=== PATIENT | male | born 1945 | race Caucasian/White ===

== ENCOUNTER → 2020-05-17 10:04 | Outpatient (BNVA) | payer SELFPAY | PROVIDERS: PCP Hospitalist; Visit Provider Urology | DX: R97.20 Elevated prostate specific antigen [PSA] (principal) | CPT/HCPCS: 99202; 99203 ==

== ENCOUNTER → 2020-08-03 14:00 | Outpatient (BNVA) | payer MEDICAID, SELFPAY | PROVIDERS: PCP Hospitalist; Visit Provider Urology | DX: Z76.89 Persons encountering health services in other specified circumstances (principal) ==

== ENCOUNTER → 2020-08-16 10:27 | Outpatient (BNVA) | payer MEDICAID, SELFPAY | PROVIDERS: PCP Hospitalist; Visit Provider Urology | DX: R97.20 Elevated prostate specific antigen [PSA] (principal) | CPT/HCPCS: 99202 ==

== ENCOUNTER 2020-09-12 08:46 | Inpatient (IN) | payer MEDICAID, SELFPAY ==
[2020-09-12] VITALS (13 sets, daily range): BP systolic 93–130; BP diastolic 52–94; PULSE 97–128; RESP 16–39; TEMP 36.5–37.1; O2SAT 90–98; BMI 23.6
--- NOTE | 2020-09-12 | CT_ITS ---
EXAMINATION: CT CHEST WITHOUT CONTRAST CLINICAL INFORMATION: Shortness of breath. Evaluate for pneumonia. COMPARISON: Chest x-ray dated 09/12/2020. TECHNIQUE: Multidetector volumetric CT imaging of the chest was obtained noncontrast. Sagittal and coronal reformations were obtained. This CT examination was performed using dose optimization techniques as appropriate, variously including the following: *Automated exposure control *Adjustment of mA and/or kV according to patient size (this includes techniques or standardized protocols for targeted exams where dose is matched to indication/reason for exam; i.e. extremities or head) *Use of iterative reconstruction technique DLP: 529.31 mGy-cm. FINDINGS: LUNGS: There is prominent volume loss throughout the right hemithorax with shift of the mediastinum towards the right side due to complete collapse of the right middle lobe and near complete collapse of the right lower lobe with only a small amount of aeration remaining in the superior segment of the right lower lobe. Several punctate densities are seen within the consolidated right lower lobe, perhaps related to aspirated material or multiple granulomas or broncholiths. There is also ill-defined and patchy parenchymal opacity in the right upper lobe. The left lung is mildly hyperinflated. In the lateral periphery of the left upper lobe, a large pleural-based 5.2 x 3.4 cm mass is seen with irregular and spiculated margins and associated pleural reaction and trace pleural fluid. There is also patchy parenchymal opacity seen posteriorly in the left upper lobe adjacent to the fissure. Mild dependent atelectasis is seen in the left lower lobe. There is underlying moderate paraseptal emphysema in the upper lobes bilaterally and mild to moderate centrilobular emphysema. The tracheobronchial tree is ectatic. There is at least partial occlusion of the right lower lobe bronchus and complete occlusion of several of the segmental branches of the right lower lobe and the medial segment of the right middle lobe. Small right-sided pleural effusion is also noted.. LYMPHOVASCULAR STRUCTURES: Aortict size normal. Heart size enlarged. Four-chamber enlargement noted. Aortic valvular and aortic annular calcifications and mild to moderate coronary artery calcifications are seen. Trace amount of pericardial fluid is seen in the superior pericardial recesses. No significant pericardial effusion. No pericardial effusion. No bilateral hilar or axillary adenopathy. There is mild mediastinal adenopathy with numerous borderline sized lymph nodes seen, largest of which are too 1.2 cm lymph nodes in the right lower paratracheal space and in the aortopulmonary window. THYROID GLAND: Atrophic and poorly assessed. UPPER ABDOMEN: Included portions of the solid organs in the upper abdomen within normal limits. There is a small calcified gallstone in the gallbladder. Small accessory splenule is seen in the splenic hilar region. BONES: Old healed fracture deformities of several of the bilateral ribs is seen. No suspicious focal findings. CT/CT chest wo con IMPRESSION: 1. Large mass is seen in the periphery of the left upper lobe, highly suspicious for a lung cancer. There is also patchy parenchymal opacity in the posterior left upper lobe, suspicious for pneumonia. 2. There is dense consolidation and volume loss throughout the right lung as discussed above, suspicious for pneumonia. No definite central obstructing mass is seen, though a malignant etiology cannot be entirely excluded. 3. Small bilateral pleural effusions, larger on the right side than the left. 4. Mild mediastinal adenopathy. 5. Cholelithiasis.
--- NOTE | ~2020-09-12 | XR_ITS ---
EXAMINATION: XR CHEST CLINICAL INFORMATION: SOB and hypoxia. COMPARISON: Chest 09/16/2020. TECHNIQUE: Frontal view of the chest was obtained. FINDINGS: The lungs are expanded with patchy opacities seen in the left upper lobe similar previous study. Mild prominent interstitial markings are seen right lower lobe and left lower lobe. Heart size and pulmonary vascularity is normal. There are multiple healed left rib fractures. XR/XR chest 1V IMPRESSION: Persistent left upper lobe and bibasilar opacification is stable. Old healed left ribs as described above are unchanged.
--- NOTE | ~2020-09-12 | XR_ITS ---
EXAMINATION: CHEST 1 VIEW CLINICAL INFORMATION: Hypoxia. COMPARISON: Multiple prior exams are reviewed. The most recent is from 09/14/2019. TECHNIQUE: An AP view of the chest is provided. FINDINGS: The cardiac silhouette is not enlarged. The mediastinal and hilar contours are unremarkable. There are neither pleural effusions nor pneumothoraces. There is persistent patchy opacification at the left apex. There is less prominent airspace opacification at the right lung base. The osseous structures are stable with several healed left rib fractures again identified. XR/XR chest 1V IMPRESSION: Persistent left upper lobe opacification corresponding to a known mass. Mild airspace disease at the right lung base.
--- NOTE | 2020-09-12 08:59 | XR_ITS ---
EXAMINATION: XR CHEST CLINICAL INFORMATION: Shortness of breath COMPARISON: None TECHNIQUE: Frontal view of the chest was obtained. FINDINGS: Patchy bilateral airspace opacities are present in both lungs, most notably in the left apex, right mid lung, and right lung base, concerning for multifocal pneumonia. No appreciable effusion on these images, the examination is limited by respiratory motion. No pneumothorax. Cardiac silhouette is normal in size. Mediastinal contour is normal. Pulmonary vasculature is unremarkable. Chronic healed left-sided rib fractures. No acute osseous findings. XR/XR chest 1V IMPRESSION: Patchy bilateral airspace disease concerning for multifocal pneumonia.
--- NOTE | 2020-09-12 08:59 | ECG_ITS ---
Test Reason : SOB Blood Pressure : / mmHG Vent. Rate : 109 BPM Atrial Rate : 159 BPM P-R Int : 000 ms QRS Dur : 104 ms QT Int : 332 ms P-R-T Axes : 000 -36 041 degrees QTc Int : 447 ms Atrial fibrillation with rapid ventricular response Left axis deviation Abnormal ECG No previous ECGs available Referred By: Samuel Bledsoe Electronically Signed By:BOBY WINCHESTER MD
--- NOTE | 2020-09-12 09:03 | ED.GENADULT ---
HPI - General Adult General Chief complaint: Dyspnea Stated complaint: LOW 02SAT ON 3L,-RAPID COVID PRIOR TX PER SNF Time Seen by Provider: 09/12/20 08:59 Source: patient and EMS Mode of arrival: EMS Limitations: physical limitation History of Present Illness HPI narrative: 74-year-old male from [facility] custodial who presented with shortness of breath and hypoxic at the custodial this morning as per staff at the custodial and no mass, history of COPD on supplemental oxygen 3 L via nasal cannula, patient was satting 80% at the custodial with his regular 3 L of oxygen, on EMS arrival patient was hypoxic was placed on non-rebreather 100% till L that improved his oxygenation 100% patient was weaned off the non-rebreather on arrival patient reported improvement of his breathing and patient now on nasal cannula 3 L satting 92% which is baseline. Patient was tested negative for COVID before arrival. Patient had a recent pneumonia 5 weeks ago. Related Data Home Medications Medication Instructions Recorded Confirmed acetaminophen 325 mg capsule 650 mg PO BID PRN 08/16/20 09/12/20 albuterol sulfate 90 mcg/actuation 2 puff INHALATION Q6H PRN 08/16/20 09/12/20 aerosol inhaler bisacodyl 10 mg rectal suppository 10 mg AR DAILY PRN 08/16/20 09/12/20 budesonide-formoterol HFA 160 2 puff INHALATION BID 08/16/20 09/12/20 mcg-4.5 mcg/actuation aerosol inhaler duloxetine 30 mg capsule,delayed 30 mg PO DAILY 08/16/20 09/12/20 release ferrous sulfate 325 mg (65 mg 325 mg PO DAILY 08/16/20 09/12/20 iron) tablet prednisone 10 mg tablet 10 mg PO DAILY 08/16/20 09/12/20 quetiapine 25 mg tablet 25 mg PO BEDTIME 08/16/20 09/12/20 risperidone 1 mg tablet 1 mg PO BEDTIME 08/16/20 09/12/20 rivaroxaban 20 mg tablet 20 mg PO DAILY 08/16/20 09/12/20 sennosides 8.6 mg capsule 8.6 mg PO DAILY 08/16/20 09/12/20 tiotropium bromide 18 mcg capsule 1 cap INHALATION DAILY 08/16/20 09/12/20 with inhalation device torsemide 20 mg tablet 20 mg PO DAILY 08/16/20 09/12/20 Allergies Allergy/AdvReac Type Severity Reaction Status Date / Time ciprofloxacin Allergy Intermediate Unknown Verified 09/12/20 10:45 vancomycin Allergy Mild Unknown Verified 09/12/20 10:45 metronidazole Allergy Unknown Verified 09/12/20 10:45 mushroom Allergy Unknown Verified 09/12/20 10:45 Review of Systems Review of Systems: All other systems are reviewed and are negative Constitutional: Reports as per HPI and Reports no additional constitutional complaints Eyes: Reports as per HPI and Reports no additional eye complaints Reports system reviewed and no additional complaints, except as documented Cardiovascular: Reports as per HPI and Reports no additional cardiovascular complaints Respiratory: Reports as per HPI and Reports no additional respiratory complaints Gastrointestinal: Reports as per HPI and Reports no additional gastrointestinal complaints Genitourinary: Reports no additional female genitourinary complaints Musculoskeletal: Reports no additional musculoskeletal complaints Skin/Breast: Reports system reviewed and no additional complaints, except as docu Psychiatric: Reports no additional psychiatric complaints Endocrine: Reports no additional endocrine complaints Hematologic/Lymphatic: Reports no additional hematologic/lymphatic complaints Allergic/Immunologic: Reports no additional allergic/immunologic complaints Reports system reviewed and no additional complaints, except as documented and Reports Abnormal speech present [facility] Past Medical History Medical History COPD (chronic obstructive pulmonary disease) Low back pain Other iron deficiency anemias Schizoaffective disorder Typical atrial flutter Social History Social History Alcohol intake: never Smoking Status: Never smoker Use of substances other than those prescribed or required for medical reasons: No Advance Directives: No Advance Directives Information Provided: No Physical Exam Vital Signs: Vital Signs: Last Vital Signs Temp 98.8 F 09/12/20 13:52 Pulse 97 09/12/20 15:14 Resp 24 H 09/12/20 15:14 BP 112/61 09/12/20 15:14 Pulse Ox 95 09/12/20 15:14 Body Mass Index 23.6 Vital signs have been reviewed as normal and appeared to be correct. Blood pressure normal. Heart rate normal. Respiration rate normal. Temperature normal. Oxygen saturation normal. Appearance: Alert.. No acute distress. Head: Normal external exam. Normocephalic. Atraumatic. No Nuno signs noted. No raccoon eyes noted Eyes: PERRLA. EOMI. Conjunctiva and sclera normal. Eyelids normal. ENT: TM's Normal. Pharynx normal. Uvula midline. Moist mucous membranes. No trismus noted. No drooling noted. No muffled voice noted. Neck: Normal inspection. Neck supple. No JVD CVS: Irregular heartbeat at 110 beats per minute. Heart sound normal. No murmurs noted. Pulses normal throughout. Respiratory: Mild respiratory distress. Painless inspiration. Breath sounds normal. Diffuse mild expiratory wheezes bilaterally with diffuse rhonchi, bilateral basilar rales No accessory muscle usage noted or decreased air movement noted. Abdomen: Soft and nontender. Bowel sounds normal in all 4 quadrants. No distention noted. No organomegaly noted. No visible injury noted. Back: No CVA tenderness. Full range of motion noted. Skin: Skin warm and dry. Normal skin color. Normal skin turgor. No rashes/lesions/lacerations noted. Extremities: +1 lower extremity edema (ankle/lower leg). Neuro: No motor deficit. No sensory deficit. Course Course Course Narrative: Assessment and plan. 74-year-old male history of COPD, use 3 L of supplemental oxygen 05/03 came in from custodial with difficulty breathing and hypoxia, patient emergency department been having periods of hypoxia which usually clears if he cough of sputum. 1. Patient meet criteria for SIRS (hypoxia/tachycardia) otherwise normal WBCs, normal lactic acid will cover patient for healthcare acquired pneumonia with Zosyn/Zithromax. 2. ABG showing normal pH with high PCO 2, the case was discussed with Dr. allen, will try BiPAP for 15- 20 minutes which may improve his mentation. Otherwise will admit to the floor, patient has been in the ER for over 8 hours mental status is unchanged, and patient appears stable. Medical Decision Making Lab Data Lab results reviewed: Yes I reviewed the patient's lab results. Result diagrams: 09/12/20 09:58 09/12/20 09:58 Labs: Lab Results 09/12/20 09/12/20 09/12/20 Range/Units 09:58 09:58 09:59 WBC 10.7 (4.8-10.8) X10*3/uL RBC 3.60 L (4.60-5.80) X10*6/uL Hgb 8.4 L (14.0-18.0) g/dl Hct 28.4 L (42-52) % MCV 78.9 L (80-98) fL MCH 23.3 L (27.0-33.0) pg MCHC 29.6 L (31.0-36.0) g/dl RDW 15.5 (11.0-16.0) % Plt Count 305 (160-400) X10*3/uL MPV 10.1 (9.4-12.4) fL Immature Gran % (Auto) 0.4 (0.0-0.4) % Neut % (Auto) 78.9 H (45-73) % Lymph % (Auto) 10.2 L (20-40) % Wallace % (Auto) 10.0 (2-11) % Eos % (Auto) 0.1 (0-4) % Baso % (Auto) 0.4 (0-2) % Lymph # (Auto) 1.1 L (1.2-4.9) X10*3/uL Wallace # (Auto) 1.1 (0.1-1.2) X10*3/uL Eos # (Auto) 0.0 (0.0-0.4) X10*3/uL Baso # (Auto) 0.0 (0.0-0.2) X10*3/uL Abs Immat Gran (auto) 0.04 H (0.00-0.03) X10*3/uL Absolute Neuts (auto) 8.6 H (2.0-8.3) X10*3/uL Absolute Nucleated RBC 0.000 (0.0-0.012) X10*3/uL Nucleated RBC % (auto) 0.0 (0.0-0.2) /100WBC Smear Tech's Comments VERIFIED ABG pH (7.35-7.45) ABG pCO2 (32-45) mmHg ABG pO2 (83-108) mmHg ABG HCO3 (22-26) mmol/L ABG O2 Saturation % ABG Base Excess VBG pH (7.32-7.43) VBG pCO2 mmHg VBG pO2 mmHg VBG HCO3 mmol/L VBG O2 Saturation % VBG Base Excess mmol/L Oxygen Given Sodium 138 (135-145) mmol/L Potassium 4.3 (3.3-5.1) mmol/L Chloride 94 L (96-108) mmol/L Carbon Dioxide 34 H (22-29) mmol/L Anion Gap 14 (12-20) BUN 17 H (9-16) mg/dL Creatinine 0.73 (0.5-1.4) mg/dL Estim Creat Clear Calc 88.8 Estimated GFR > 60 Random Glucose 115 (60-115) mg/dL Lactic Acid (0.5-2.0) mmol/L Calcium 8.4 (8.4-10.2) mg/dL Total Bilirubin 0.3 (0.0-1.0) mg/dL Direct Bilirubin 0.2 (0.0-0.5) mg/dL AST 17 (5-37) U/L ALT < 6 (0-40) U/L Alkaline Phosphatase 99 (39-117) U/L Troponin I High Sens (<3.5-35.0) ng/L B-Natriuretic Peptide (<100) pg/mL Total Protein 6.0 L (6.5-8.0) g/dL Albumin 3.4 L (3.5-5.0) g/dL Lipase 19 (8-78) U/L COVID-19 (REYES) Negative (Negative) COVID-19 Clin Com See Note 09/12/20 09/12/20 09/12/20 Range/Units 10:19 11:38 11:39 WBC (4.8-10.8) X10*3/uL RBC (4.60-5.80) X10*6/uL Hgb (14.0-18.0) g/dl Hct (42-52) % MCV (80-98) fL MCH (27.0-33.0) pg MCHC (31.0-36.0) g/dl RDW (11.0-16.0) % Plt Count (160-400) X10*3/uL MPV (9.4-12.4) fL Immature Gran % (Auto) (0.0-0.4) % Neut % (Auto) (45-73) % Lymph % (Auto) (20-40) % Wallace % (Auto) (2-11) % Eos % (Auto) (0-4) % Baso % (Auto) (0-2) % Lymph # (Auto) (1.2-4.9) X10*3/uL Wallace # (Auto) (0.1-1.2) X10*3/uL Eos # (Auto) (0.0-0.4) X10*3/uL Baso # (Auto) (0.0-0.2) X10*3/uL Abs Immat Gran (auto) (0.00-0.03) X10*3/uL Absolute Neuts (auto) (2.0-8.3) X10*3/uL Absolute Nucleated RBC (0.0-0.012) X10*3/uL Nucleated RBC % (auto) (0.0-0.2) /100WBC Smear Tech's Comments ABG pH (7.35-7.45) ABG pCO2 (32-45) mmHg ABG pO2 (83-108) mmHg ABG HCO3 (22-26) mmol/L ABG O2 Saturation % ABG Base Excess VBG pH 7.39 (7.32-7.43) VBG pCO2 81 mmHg VBG pO2 76 mmHg VBG HCO3 50 mmol/L VBG O2 Saturation 93.0 % VBG Base Excess 22.2 mmol/L Oxygen Given Sodium (135-145) mmol/L Potassium (3.3-5.1) mmol/L Chloride (96-108) mmol/L Carbon Dioxide (22-29) mmol/L Anion Gap (12-20) BUN (9-16) mg/dL Creatinine (0.5-1.4) mg/dL Estim Creat Clear Calc Estimated GFR Random Glucose (60-115) mg/dL Lactic Acid 0.7 (0.5-2.0) mmol/L Calcium (8.4-10.2) mg/dL Total Bilirubin (0.0-1.0) mg/dL Direct Bilirubin (0.0-0.5) mg/dL AST (5-37) U/L ALT (0-40) U/L Alkaline Phosphatase (39-117) U/L Troponin I High Sens 62.2 H (<3.5-35.0) ng/L B-Natriuretic Peptide 94 (<100) pg/mL Total Protein (6.5-8.0) g/dL Albumin (3.5-5.0) g/dL Lipase (8-78) U/L COVID-19 (REYES) (Negative) COVID-19 Clin Com 09/12/20 Range/Units 14:34 WBC (4.8-10.8) X10*3/uL RBC (4.60-5.80) X10*6/uL Hgb (14.0-18.0) g/dl Hct (42-52) % MCV (80-98) fL MCH (27.0-33.0) pg MCHC (31.0-36.0) g/dl RDW (11.0-16.0) % Plt Count (160-400) X10*3/uL MPV (9.4-12.4) fL Immature Gran % (Auto) (0.0-0.4) % Neut % (Auto) (45-73) % Lymph % (Auto) (20-40) % Wallace % (Auto) (2-11) % Eos % (Auto) (0-4) % Baso % (Auto) (0-2) % Lymph # (Auto) (1.2-4.9) X10*3/uL Wallace # (Auto) (0.1-1.2) X10*3/uL Eos # (Auto) (0.0-0.4) X10*3/uL Baso # (Auto) (0.0-0.2) X10*3/uL Abs Immat Gran (auto) (0.00-0.03) X10*3/uL Absolute Neuts (auto) (2.0-8.3) X10*3/uL Absolute Nucleated RBC (0.0-0.012) X10*3/uL Nucleated RBC % (auto) (0.0-0.2) /100WBC Smear Tech's Comments ABG pH 7.38 (7.35-7.45) ABG pCO2 80 H* (32-45) mmHg ABG pO2 78 L (83-108) mmHg ABG HCO3 47 H (22-26) mmol/L ABG O2 Saturation 93.0 % ABG Base Excess 19.8 VBG pH (7.32-7.43) VBG pCO2 mmHg VBG pO2 mmHg VBG HCO3 mmol/L VBG O2 Saturation % VBG Base Excess mmol/L Oxygen Given 4 L Sodium (135-145) mmol/L Potassium (3.3-5.1) mmol/L Chloride (96-108) mmol/L Carbon Dioxide (22-29) mmol/L Anion Gap (12-20) BUN (9-16) mg/dL Creatinine (0.5-1.4) mg/dL Estim Creat Clear Calc Estimated GFR Random Glucose (60-115) mg/dL Lactic Acid (0.5-2.0) mmol/L Calcium (8.4-10.2) mg/dL Total Bilirubin (0.0-1.0) mg/dL Direct Bilirubin (0.0-0.5) mg/dL AST (5-37) U/L ALT (0-40) U/L Alkaline Phosphatase (39-117) U/L Troponin I High Sens (<3.5-35.0) ng/L B-Natriuretic Peptide (<100) pg/mL Total Protein (6.5-8.0) g/dL Albumin (3.5-5.0) g/dL Lipase (8-78) U/L COVID-19 (REYES) (Negative) COVID-19 Clin Com Imaging Data Chest x-ray: Radiologist's impression: Patchy bilateral airspace disease concerning for multifocal pneumonia. ECG Data Interpretation: Atrial fibrillation at 01:19 beats per minutes, left axis deviation, otherwise unremarkable intervals. Discharge Plan Discharge Clinical Impression: Hypoxia, Acute exacerbation of chronic obstructive pulmonary disease (COPD), Hospital-acquired pneumonia Patient Disposition: Admitted As Inpatient
[2020-09-12] MEDS: Albuterol/Iprat 2.5/0.5MG 3 ML AMPUL.NEB INHALE (09:07)
[2020-09-12] MEDS: methylPREDNISolone Sod Succ/PF 125 MG/2 ML VIAL IVPUSH (09:10)
[2020-09-12] MEDS: Furosemide 20 MG/2 ML VIAL IVPUSH (09:11)
[2020-09-12] MEDS: Magnesium Sulfate/H2O 2 GM/50 ML PIGGYBACK IV (09:22)
[2020-09-12] MEDS: 0.9 % Sodium Chloride 1,000 ML 999 ML IVCONT (10:00)
[2020-09-12 10:19] LABS: COVID-19 Test Negative (Negative); IDNOW Serial# 9DD0AD1C
[2020-09-12 10:26] LABS: Basophils Percent Auto 0.4 % (0-2); Eosinophils Percent Auto 0.1 % (0-4); Hematocrit 28.4 % (42-52); Hemoglobin 8.4 g/dl (14.0-18.0); Imm Gran Abs Auto 0.04 X10*3/uL (0.00-0.03); Imm Gran Pct Auto 0.4 % (0.0-0.4); Lymphocytes Absolute Auto 1.1 X10*3/uL (1.2-4.9); Lymphocytes Percent Auto 10.2 % (20-40); MANUAL DIFF FLAG SCAN; Mean Corpuscular HGB Conc 29.6 g/dl (31.0-36.0); Mean Corpuscular Hemoglobin 23.3 pg (27.0-33.0); Mean Corpuscular Volume 78.9 fL (80-98); Mean Platelet Volume 10.1 fL (9.4-12.4); Monocytes Absolute Auto 1.1 X10*3/uL (0.1-1.2); Neutrophils Absolute Auto 8.6 X10*3/uL (2.0-8.3); Neutrophils Percent Auto 78.9 % (45-73); PLT CLUMP 1; Red Cell Distribution Width 15.5 % (11.0-16.0); SCAN SMEAR FLAG 1
[2020-09-12 10:32] LABS: Alanine Aminotransferase < 6 U/L (0-40); Albumin Level 3.4 g/dL (3.5-5.0); Alkaline Phosphatase 99 U/L (39-117); Anion Gap 14 (12-20); Aspartate Amino Transferase 17 U/L (5-37); Bilirubin Direct 0.2 mg/dL (0.0-0.5); Bilirubin Total 0.3 mg/dL (0.0-1.0); Blood Urea Nitrogen 17 mg/dL (9-16); Calcium 8.4 mg/dL (8.4-10.2); Carbon Dioxide 34 mmol/L (22-29); Chloride 94 mmol/L (96-108); Creatinine Clr Calc Pharmacy 88.8; Estimated Glomerular Filt Rate > 60; Glucose Random 115 mg/dL (60-115); Lipase 19 U/L (8-78); Potassium 4.3 mmol/L (3.3-5.1); Sodium 138 mmol/L (135-145)
[2020-09-12] MEDS: Piperacillin Sodium/Tazobactam 4.5 GM in 0.9 % Sodium Chloride 100 ML IV (10:33)
[2020-09-12 10:36] LABS: White Blood Count 10.7 X10*3/uL (4.8-10.8)
[2020-09-12 10:37] LABS: Platelet Count 305 X10*3/uL (160-400)
[2020-09-12 11:27] LABS: B Type Natriuretic Peptide 94 pg/mL (<100)
[2020-09-12 11:30] LABS: SLIDE REVIEW VERIFIED
[2020-09-12 11:46] LABS: Troponin-I High Sensitivity 62.2 ng/L (<3.5-35.0)
[2020-09-12 11:47] LABS: HCO3 VBG 50 mmol/L; PCO2 VBG 81 mmHg; PO2 VBG 76 mmHg; pH VBG 7.39 (7.32-7.43)
[2020-09-12 11:48] LABS: Base Excess VBG 22.2 mmol/L
[2020-09-12] MEDS: Azithromycin 500 MG in 0.9 % Sodium Chloride 250 ML 125 MG IV (11:51)
[2020-09-12 12:08] LABS: Lactic Acid 0.7 mmol/L (0.5-2.0)
[2020-09-12] MEDS: Albuterol Sulfate (0.083%) 2.5 MG/3 ML VIAL.NEB INHALE (13:06)
--- NOTE | 2020-09-12 13:58 | PC.NURSE ---
Weaning and increaseing o2 as indicated. PT's sats drop only with sleep or laugh of cough effort. When pt is awake and coughing strong his sats improve ans we are able to wean to 3liters nc with sats remaining >90.
[2020-09-12 14:48] LABS: Pt Ventilation O2% 4 L
[2020-09-12 14:51] LABS: PO2 ABG 78 mmHg (83-108); pH ABG 7.38 (7.35-7.45)
[2020-09-12 14:52] LABS: Base Excess ABG 19.8; HCO3 ABG 47 mmol/L (22-26)
[2020-09-12 14:56] LABS: ABG PCO2 80 mmHg (32-45)
--- NOTE | 2020-09-12 15:17 | PC.NURSE ---
ABG elevated CO2 with normal pH. Bedside capnography applied reading 38-42
--- NOTE | 2020-09-12 16:23 | PC.NURSE ---
Pt placced on bipap for a trial in attempt to improve mentation. Per ABG CO2 elevated but pH was WNL. Pt has COPD history on 3liters at baseline.
--- NOTE | 2020-09-12 17:27 | PM.IMHP ---
History of Present Illness Date of Service: 09/12/20 Chief Complaint: Shortness of breath 74 year old man presenting from [facility] with hypoxia with oxygen saturation of 80%. Unfortunately patient was somnolent and not answer many questions. He does have a history schizophrenia. Chest CT obtained showed large mass in the periphery of the left upper lobe and patchy opacity. He also had some pleural effusions. Blood gas did show pCO2 80, pH 7.38, PO2 78. Seems compensated with bicarb of 47. He has a history of chronic respiratory failure and he is on 3 L of oxygen at the facility. His oxygen did improve after he was placed on Ventimask and non-rebreather. Review of Systems Review of Systems: Yes Unobtainable due to mental status [facility] Medical History COPD (chronic obstructive pulmonary disease) Low back pain Other iron deficiency anemias Schizoaffective disorder Typical atrial flutter Social History Alcohol intake: never Smoking Status: Never smoker Use of substances other than those prescribed or required for medical reasons: No Advance Directives: No Advance Directives Information Provided: No Meds Allergies Allergy/AdvReac Type Severity Reaction Status Date / Time ciprofloxacin Allergy Intermediate Unknown Verified 09/12/20 10:45 vancomycin Allergy Mild Unknown Verified 09/12/20 10:45 metronidazole Allergy Unknown Verified 09/12/20 10:45 mushroom Allergy Unknown Verified 09/12/20 10:45 Home Medications Medication Instructions Recorded Confirmed Type acetaminophen 325 mg capsule 650 mg PO BID PRN 08/16/20 09/12/20 History albuterol sulfate 90 mcg/actuation 2 puff INHALATION Q6H PRN 08/16/20 09/12/20 History aerosol inhaler bisacodyl 10 mg rectal suppository 10 mg SD DAILY PRN 08/16/20 09/12/20 History budesonide-formoterol HFA 160 2 puff INHALATION BID 08/16/20 09/12/20 History mcg-4.5 mcg/actuation aerosol inhaler duloxetine 30 mg capsule,delayed 30 mg PO DAILY 08/16/20 09/12/20 History release ferrous sulfate 325 mg (65 mg 325 mg PO DAILY 08/16/20 09/12/20 History iron) tablet prednisone 10 mg tablet 10 mg PO DAILY 08/16/20 09/12/20 History quetiapine 25 mg tablet 25 mg PO BEDTIME 08/16/20 09/12/20 History risperidone 1 mg tablet 1 mg PO BEDTIME 08/16/20 09/12/20 History rivaroxaban 20 mg tablet 20 mg PO DAILY 08/16/20 09/12/20 History sennosides 8.6 mg capsule 8.6 mg PO DAILY 08/16/20 09/12/20 History tiotropium bromide 18 mcg capsule 1 cap INHALATION DAILY 08/16/20 09/12/20 History with inhalation device torsemide 20 mg tablet 20 mg PO DAILY 08/16/20 09/12/20 History Physical Exam Vital Signs and Narrative: Vital Signs: Last Vital Signs Temp 98.8 F 09/12/20 13:52 Pulse 97 09/12/20 15:14 Resp 39 H 09/12/20 16:29 BP 112/61 09/12/20 15:14 Pulse Ox 95 09/12/20 15:14 Body Mass Index 23.6 Appearing in no acute distress head is normocephalic atraumatic eyes pupils are PERRLA sclera is anicteric mouth throat mucous membranes are intact and moist neck is supple no lymphadenopathy, no JVD noted lung sounds Coarse heart regular rate rhythm, clear S1, S2 positive bowel sounds, abdomen is soft, nontender neuro patient alert to stimuli Results Labs CBC and Chem 7: 09/12/20 09:58 09/12/20 09:58 Labs: Laboratory Results - last 24 hr 09/12/20 09/12/20 09/12/20 09:58 09:58 09:59 MCV 78.9 L MCH 23.3 L MCHC 29.6 L RDW 15.5 Plt Count 305 MPV 10.1 Immature Gran % (Auto) 0.4 Neut % (Auto) 78.9 H Lymph % (Auto) 10.2 L [place] % (Auto) 10.0 Eos % (Auto) 0.1 Baso % (Auto) 0.4 Lymph # (Auto) 1.1 L [place] # (Auto) 1.1 Eos # (Auto) 0.0 Baso # (Auto) 0.0 Abs Immat Gran (auto) 0.04 H Absolute Neuts (auto) 8.6 H Absolute Nucleated RBC 0.000 Nucleated RBC % (auto) 0.0 Smear Tech's Comments VERIFIED ABG pH ABG pCO2 ABG pO2 ABG HCO3 ABG O2 Saturation ABG Base Excess VBG pH VBG pCO2 VBG pO2 VBG HCO3 VBG O2 Saturation VBG Base Excess Oxygen Given Anion Gap 14 Estim Creat Clear Calc 88.8 Estimated GFR > 60 Random Glucose 115 Lactic Acid Calcium 8.4 Total Bilirubin 0.3 Direct Bilirubin 0.2 AST 17 ALT < 6 Alkaline Phosphatase 99 Troponin I High Sens B-Natriuretic Peptide Total Protein 6.0 L Albumin 3.4 L Lipase 19 COVID-19 (REYES) Negative COVID-19 Clin Com See Note 09/12/20 09/12/20 09/12/20 10:19 11:38 11:39 MCV MCH MCHC RDW Plt Count MPV Immature Gran % (Auto) Neut % (Auto) Lymph % (Auto) Sweet [place] % (Auto) Eos % (Auto) Baso % (Auto) Lymph # (Auto) Sweet [place] # (Auto) Eos # (Auto) Baso # (Auto) Abs Immat Gran (auto) Absolute Neuts (auto) Absolute Nucleated RBC Nucleated RBC % (auto) Smear Tech's Comments ABG pH ABG pCO2 ABG pO2 ABG HCO3 ABG O2 Saturation ABG Base Excess VBG pH 7.39 VBG pCO2 81 VBG pO2 76 VBG HCO3 50 VBG O2 Saturation 93.0 VBG Base Excess 22.2 Oxygen Given Anion Gap Estim Creat Clear Calc Estimated GFR Random Glucose Lactic Acid 0.7 Calcium Total Bilirubin Direct Bilirubin AST ALT Alkaline Phosphatase Troponin I High Sens 62.2 H B-Natriuretic Peptide 94 Total Protein Albumin Lipase COVID-19 (REYES) COVID-19 Clin Com 09/12/20 14:34 MCV MCH MCHC RDW Plt Count MPV Immature Gran % (Auto) Neut % (Auto) Lymph % (Auto) Sweet [place] % (Auto) Eos % (Auto) Baso % (Auto) Lymph # (Auto) [place] # (Auto) Eos # (Auto) Baso # (Auto) Abs Immat Gran (auto) Absolute Neuts (auto) Absolute Nucleated RBC Nucleated RBC % (auto) Smear Tech's Comments ABG pH 7.38 ABG pCO2 80 H* ABG pO2 78 L ABG HCO3 47 H ABG O2 Saturation 93.0 ABG Base Excess 19.8 VBG pH VBG pCO2 VBG pO2 VBG HCO3 VBG O2 Saturation VBG Base Excess Oxygen Given 4 L Anion Gap Estim Creat Clear Calc Estimated GFR Random Glucose Lactic Acid Calcium Total Bilirubin Direct Bilirubin AST ALT Alkaline Phosphatase Troponin I High Sens B-Natriuretic Peptide Total Protein Albumin Lipase COVID-19 (REYES) COVID-19 Clin Com Imaging Radiologist's Impressions: Impressions Chest CT 09/12/20 00:00 IMPRESSION: 1. Large mass is seen in the periphery of the left upper lobe, highly suspicious for a lung cancer. There is also patchy parenchymal opacity in the posterior left upper lobe, suspicious for pneumonia. 2. There is dense consolidation and volume loss throughout the right lung as discussed above, suspicious for pneumonia. No definite central obstructing mass is seen, though a malignant etiology cannot be entirely excluded. 3. Small bilateral pleural effusions, larger on the right side than the left. 4. Mild mediastinal adenopathy. 5. Cholelithiasis. Chest X-Ray 09/12/20 08:59 IMPRESSION: Patchy bilateral airspace disease concerning for multifocal pneumonia. Assessment and Plan (1) Hypoxia: Status: Acute (2) Acute exacerbation of chronic obstructive pulmonary disease (COPD): Status: Acute (3) Hospital-acquired pneumonia: Status: Acute 74-year-old man [facility] with pneumonia, acute on chronic respiratory failure secondary to pneumonia and COPD exacerbation. Healthcare associated pneumonia. Cefepime, doxycycline. Supplemental oxygen. Acute on chronic respiratory failure. Secondary to pneumonia and COPD exacerbation. Solu-Medrol, supplemental oxygen. Anemia. Chronic. No signs of bleeding. Continue iron supplementation. Atrial flutter. Stable heart rate. Continue rivaroxaban. Schizophrenia. Continue home medications. DVT prophylaxis with rivaroxaban Case discussed with Dr. Gerber Full code
--- NOTE | 2020-09-12 18:02 | PC.NURSE ---
Pt taken off of bipap and placed back on 3liters NC. No change in mental status noted after bipap trial. Sats remain >90 up to 95% on the 3liters NC.
--- NOTE | 2020-09-12 18:12 | PM.EVENT ---
Event Note Date of Service: 09/12/20 Event Note: In brief a 74 yo M from [facility] who presents with hypoxia. Pt with advanced copd and evidence of chronic CO2 retention on ABG. Pt seen in the ED multiple times. He complains of trouble breathing. Reports cough and weakness. Also reports chest pain for multiple days. Exam Gen - easily arousable and talks CVS - IRR Lungs - Rhonchi, no distress Neuro - non-focal A/P 74 yo from [facility] presenting with hypoxia. CT showing lung mass + pneumonia admit for IV antibiotics pulm consult tomorrow. Remainder per H&P. Case discussed with Kiki Kay NP. Agree with her history and physical.
[2020-09-12 18:44] LABS: Troponin-I High Sensitivity 40.4 ng/L (<3.5-35.0)
--- NOTE | 2020-09-12 20:00 | PC.NURSE ---
pt had witnessed episode of rapid afib between 120-160 with hypoxia, productive cough, white mucus. pt suctioned. airway patent.
[2020-09-12] MEDS: risperiDONE 1 MG TABLET PO (20:13)
[2020-09-12] MEDS: QUEtiapine Fumarate 25 MG TABLET PO (20:14)
[2020-09-12] MEDS: cefEPime HCl 1 GM in 0.9 % Sodium Chloride 50 ML IV (20:14)
--- NOTE | 2020-09-12 21:38 | PC.NURSE ---
[facility] HOSPIT[facility] MADE AWARE OF AFIB RANGING BETWEEN 98-120S DURING DAY. PT NOW IN AFIB BETWEEN 120-160.
[2020-09-12] MEDS: 0.9 % Sodium Chloride 1,000 ML 250 ML IVCONT (21:53)
--- NOTE | 2020-09-12 21:53 | PC.NURSE ---
md aware of down trending bp. verbal order given for 1 ls ns.
[2020-09-13] VITALS (9 sets, daily range): BP systolic 95–144; BP diastolic 48–87; PULSE 98–155; RESP 16–20; TEMP 36.3–37.1; O2SAT 92–100
--- NOTE | 2020-09-13 00:09 | PC.NURSE ---
PER MD, NO NEED TO DRAW VBG.
--- NOTE | 2020-09-13 00:24 | PC.NURSE ---
PT IN AFIB AT 110S-150S. ALMOST 1/2 L NS INFUSED AT 250/HR. MAINTAINING O2 SATURATION. BP 97/52. HOSITALIST AWARE.
[2020-09-13] MEDS: cefEPime HCl 1 GM in 0.9 % Sodium Chloride 50 ML IV ×3 (03:23→19:43)
--- NOTE | 2020-09-13 05:34 | PC.NURSE ---
pt had witnessed rapid afib sustained at rate of 140-167. map of 78. md aware. plan of place on maintainence fluids at this time.
--- NOTE | 2020-09-13 05:37 | PC.NURSE ---
fluids began. at 125ml/hr
--- NOTE | 2020-09-13 05:42 | PC.NURSE ---
defering to pheblotomy for am draw.
[2020-09-13] MEDS: 0.9 % Sodium Chloride 1,000 ML 125 ML IVCONT ×2 (05:43→13:04)
--- NOTE | 2020-09-13 06:44 | PC.NURSE ---
large bm. dark brown stool. not formed. pericare preformed. unable to cue for bathroom.
[2020-09-13 06:53] LABS: Basophils Percent Auto 0.1 % (0-2); Hematocrit 29.1 % (42-52); Hemoglobin 8.5 g/dl (14.0-18.0); Imm Gran Abs Auto 0.06 X10*3/uL (0.00-0.03); Imm Gran Pct Auto 0.5 % (0.0-0.4); Lymphocytes Absolute Auto 0.5 X10*3/uL (1.2-4.9); Lymphocytes Percent Auto 3.6 % (20-40); MANUAL DIFF FLAG SCAN; Mean Corpuscular HGB Conc 29.2 g/dl (31.0-36.0); Mean Corpuscular Volume 78.9 fL (80-98); Mean Platelet Volume 9.4 fL (9.4-12.4); Monocytes Absolute Auto 0.6 X10*3/uL (0.1-1.2); Monocytes Percent Auto 4.2 % (2-11); Neutrophils Absolute Auto 11.9 X10*3/uL (2.0-8.3); Neutrophils Percent Auto 91.6 % (45-73); Platelet Count 425 X10*3/uL (160-400); Red Blood Count 3.69 X10*6/uL (4.60-5.80); Red Cell Distribution Width 15.4 % (11.0-16.0); SCAN SMEAR FLAG 1
[2020-09-13 07:20] LABS: Anion Gap 11 (12-20); Blood Urea Nitrogen 20 mg/dL (9-16); Calcium 8.3 mg/dL (8.4-10.2); Carbon Dioxide 36 mmol/L (22-29); Chloride 97 mmol/L (96-108); Creatinine Clr Calc Pharmacy 90.1; Estimated Glomerular Filt Rate > 60; Glucose Random 129 mg/dL (60-115); Potassium 4.7 mmol/L (3.3-5.1); Sodium 139 mmol/L (135-145)
--- NOTE | 2020-09-13 07:30 | PC.NURSE ---
report taken from lucrecia mccormick pt admitted for acute hypoxia, pt on 3l o2 nc at baseline. pt appears comfortable resting in stretcher, spo2 maintained at 96% on humidified o2. randy.
[2020-09-13 07:50] LABS: SLIDE REVIEW VERIFIED
[2020-09-13] MEDS: Ferrous Sulfate 324 MG TABLET.DR PO (09:03)
[2020-09-13] MEDS: DULoxetine HCl 30 MG CAPSULE.DR PO (09:03)
[2020-09-13] MEDS: Torsemide 20 MG TABLET PO (09:03)
[2020-09-13] MEDS: Fluticasone/Vilanterol 200/25 BLST.W.DEV 1 PUFF INHALE (09:04)
--- NOTE | 2020-09-13 10:34 | PC.NURSE ---
pt able to tolerate all po morning meds, incontinent of liquid bm and urine. linens changed, pt given bath in bed w warm wipes.
--- NOTE | 2020-09-13 11:44 | CONS_ITS ---
DATE OF SERVICE: 09/13/2020 HISTORY OF PRESENT ILLNESS: 74-year-old gentleman, a resident of [facility] (a half-way skilled facility), is being admitted through the emergency room with chief complaint of increased shortness of breath. The patient not able to provide any history. I have obtained most of the information through the electronic records. Apparently, the patient has had no fever or chills. His mental status is usually obtunded and is somewhat worse than before. He is being evaluated in the emergency room. The COVID test is negative. His blood gases are grossly abnormal. Also, has moderate degree of leukocytosis. From the notes, it seemed that he has had no fever or chills. PAST MEDICAL HISTORY: Noted as follows: 1. Chronic obstructive pulmonary disease, chronic low back pain. 2. Chronic anemia, probably due to iron deficiency. 3. Paroxysmal atrial flutter and he is on anticoagulation. 4. Schizophrenic disorder, this being the primary disorder in his case. REVIEW OF SYSTEMS: Not obtainable because the patient does not communicate. SOCIAL HISTORY: He is a chronically disabled gentleman with chronic schizophrenia and resident of a long-term facility. It is noted that he never smoked and also there is no history of any substance abuse. MEDICATIONS: His list of medications at home includes Symbicort 160/4.5 two puffs b.i.d., albuterol inhaler q.4-6 hours p.r.n., recently has been on prednisone 10 mg daily for possibility of recent exacerbation of COPD. Spiriva HandiHaler 1 inhalation daily. We are not aware of any previous chest x-rays. PHYSICAL EXAMINATION: GENERAL: 74-year-old gentleman, is not communicating. Respiratory rate 24, but he is not in any distress. He is on oxygen 2 L/minute. THROAT: Cannot be examined. NECK: No obvious jugular venous distention. Trachea in midline lymphadenopathy noted. CHEST: Percussion note is resonant. Breath sounds are very distant, especially over the right chest. There is marked decrease inspiratory sounds. On the left side, the breath sounds are distant and there are scattered expiratory wheezes. CARDIAC: Sounds are distant. Rhythm is regular at this time. EXTREMITIES: No pitting edema and no evidence of phlebitis. DIAGNOSTIC DATA: The plain chest x-ray shows patchy bilateral airspace opacities and mostly in the left upper lobe area, also in the right mid lung and right lung base. CT scan of the chest without contrast shows striking abnormalities as noted below. There is a prominent volume loss of the right lung with shift of mediastinum to the right. There is patchy consolidation of the right middle and lower lobe. There is a mass in the left upper lobe in the peripheral area, which measures about 5 x 4 cm. ABGs; pH 7.38, pCO2 of 80, pO2 of 78, bicarb of 47, consistent with chronic compensated respiratory failure. White cell count 13, hemoglobin 8.5, hematocrit 29. CLINICAL IMPRESSION: Acute exacerbation of chronic obstructive pulmonary disease. Possible bilateral bronchopneumonia, multilobar, healthcare facility acquired. A neoplastic process especially in the left upper lobe cannot be ruled out. Acute on chronic respiratory failure with CO2 retention. RECOMMENDATIONS: Continue oxygen supplementation between 3 to 4 L/minute to keep O2 saturation just above 90%. DuoNeb updrafts q.6 hours while awake. Broad-spectrum antibiotics had been started including cefepime and doxycycline. Avoid any sedation and monitor the blood gases closely. Once the initial events are under control, I think this gentleman would benefit from having a bronchoscopic examination. If bronchoscopic examination is not revealing of any definite diagnosis, then he will need a percutaneous needle biopsy of the left upper lobe. Thank you very much for asking me to see this patient. MD DAMIAN Wray/TARA / [phone]
--- NOTE | 2020-09-13 12:38 | P.EN_ITS ---
Event Note Date of Service: 09/13/20 Event Note: PATIENT SEEN THIS MORNING FOR PULMONARY CONSULTATION. HISTORY AND CURRENT LAB/CHEST X-RAY REVIEWED. ALSO REVIEWED THE CT SCAN OF THE CHEST. FULL NOTE IS DICTATED. A: HISTORY OF CHRONIC OBSTRUCTIVE PULMONARY DISEASE/CHRONIC RESPIRATORY FAILURE. ACUTE EXACERBATION OF COPD AND ACUTE ON CHRONIC RESPIRATORY FAILURE WITH THE SIGNIFICANT CO2 RETENTION. BILATERAL PNEUMONIA, PROBABLY HEALTHCARE ASSOCIATED . PARTIAL ATELECTASIS OF THE RIGHT LUNG MAY BE SECONDARY TO ENDOBRONCHIAL LESION OR MUCOUS PLUGGING. MASS LEFT UPPER LOBE, MOST LIKELY NEOPLASTIC OR ROUNDED PNEUMONIA. P: TREAT FOR HCAP. AND AT AGREE WITH CURRENT ANTIBIOTIC REGIMEN OF CEFEPIME HIGH MIN DOXYCYCLINE. OXYGEN SUPPLEMENTATIN NEEDED TO KEEP O2 SAT ABOVE 90%. DUONEB UPDRAFTS Q.6 HOURS WHILE AWAKE. SOLU-MEDROL 40 MG IV Q.12 HOURS. AVOID ANY SEDATION, MONITOR WITH REPEAT BLOOD GASES ON DAILY BASIS. PATIENT WOULD NEED BRONCHOSCOPIC EXAMINATION, TO RULE OUT ENDOBRONCHIAL LESION, OR BRONCHIAL LAVAGE URGE, AND TO CHECK BRONCHIAL SECRETIONS FOR CYTOL OGY. (I have discussed this case with Dr. Deon Kay, and he will consider doing the procedure at an appropriate time 0
--- NOTE | 2020-09-13 13:36 | HO.PM.IMPN ---
Subjective Subjective Date of Service: 09/13/20 Interval History: Patient seen and examined the emergency room this morning He tells me he feels ?miserable? Reports trouble breathing intermittently Denies chest pain Physical Exam Vital Signs: Vital Signs: Last Vital Signs Temp 98.2 F 09/12/20 18:59 Pulse 155 H 09/13/20 10:41 Resp 16 09/13/20 10:41 BP 109/58 L 09/13/20 10:41 Pulse Ox 94 09/13/20 07:29 Body Mass Index 23.6 Const: Other: General - no distress, unkempt Cardiovascular - IRR, rates 100-110 Lungs - rhonchi, wheezing; no tachpynea at rest; sats in the low 90s Abdomen - soft, nontender, no rebound or guarding Extremities - no calf tenderness Neuro - awake and alert, no focal deficits Objective Data Current Medications Generic Name Dose Route Start Last Admin Trade Name Freq PRN Reason Stop Dose Admin Acetaminophen 650 mg 09/12/20 17:26 Acetaminophen 325 Mg Tablet PO Q6H PRN Pain, Mild (Pain Scale 1-3) Acetaminophen 650 mg 09/12/20 17:26 Acetaminophen 325 Mg Tablet PO BID PRN Pain Albuterol Sulfate 2 puff 09/12/20 17:26 Albuterol Sulfate 90 Mcg 8 Gm Inhaler INHALE Q6H PRN Shortness Of Breath Albuterol/Ipratropium 3 ml 09/13/20 16:00 Albuterol/Iprat 2.5/0.5mg 3 Ml Ampul.Neb INHALE RQ4H WHILE AWAKE JOSEP Bisacodyl 10 mg 09/12/20 17:26 Bisacodyl 10 Mg Supp.Rect PA DAILY PRN Constipation Doxycycline Hyclate 100 mg 09/12/20 20:00 09/13/20 09:03 Doxycycline Hyclate 100 Mg Tablet PO 100 mg Q12H JOSEP Administration Duloxetine HCl 30 mg 09/13/20 09:00 09/13/20 09:03 Duloxetine Hcl 30 Mg Capsule. PO 30 mg DAILY JOSEP Administration Ferrous Sulfate 324 mg 09/13/20 09:00 09/13/20 09:03 Ferrous Sulfate 324 Mg Tablet. PO 324 mg DAILY JOSEP Administration Cefepime HCl 1 gm/ Sodium 50 mls @ 100 mls/hr 09/12/20 20:00 09/13/20 13:06 Chloride IV Infused Q8H JOSEP Infusion Sodium Chloride 1,000 mls @ 125 mls/hr 09/13/20 05:45 09/13/20 13:04 Ns IVCONT 125 mls/hr .Q8H JOSEP Administration Methylprednisolone Sodium Succinate 40 mg 09/12/20 19:30 09/13/20 08:13 Methylprednisolone Sod Succ/Pf 40 Mg/Ml Vial IVPUSH 40 mg Q12H JOSEP Administration Ondansetron HCl 4 mg 09/12/20 17:26 Ondansetron Hcl 4 Mg/2 Ml Vial IVPUSH Q8H PRN Nausea and Vomiting Quetiapine Fumarate 25 mg 09/12/20 21:00 09/12/20 20:14 Quetiapine Fumarate 25 Mg Tablet PO 25 mg BEDTIME JOSEP Administration Risperidone 1 mg 09/12/20 21:00 09/12/20 20:13 Risperidone 1 Mg Tablet PO 1 mg BEDTIME JOSEP Administration Rivaroxaban 20 mg 09/13/20 09:00 09/13/20 09:22 Rivaroxaban 20 Mg Tablet PO Not Given DAILY JOSEP Senna 8.6 mg 09/13/20 09:00 09/13/20 09:22 Sennosides 8.6 Mg Tablet PO Not Given DAILY JOSEP Sodium Chloride 3 ml 09/13/20 00:00 09/13/20 09:06 0.9 % Sodium Chloride Flush 3 Ml Syringe IVFLUSH Not Given QSHIFT JOSEP Sodium Chloride 3 ml 09/13/20 02:28 09/13/20 09:06 0.9 % Sodium Chloride Flush 3 Ml Syringe IVFLUSH Not Given QSHIFT JOSEP Torsemide 20 mg 09/13/20 09:00 09/13/20 09:03 Torsemide 20 Mg Tablet PO 20 mg DAILY JOSEP Administration Protocol Labs CBC & Chem 7: 09/13/20 06:35 09/13/20 06:35 Microbiology Microbiology Results: Microbiology 09/12/20 10:19 Blood - Venous Blood Culture - Preliminary No growth after 24 hours. 09/12/20 10:02 Blood - Venous Blood Culture - Preliminary No growth after 24 hours. Assessment and Plan (1) Hypoxia: Status: Acute (2) Acute exacerbation of chronic obstructive pulmonary disease (COPD): Status: Acute (3) Hospital-acquired pneumonia: Status: Acute Assessment and Plan: 74-year-old man presenting from [facility] with pneumonia, acute on chronic respiratory failure secondary to pneumonia and COPD exacerbation. 1. Acute on chronic respiratory failure with hypoxia and hypercarbia due to copd exacerbation + HCAP + possible Lung Ma titrate o2 to keep saturations 90; 2. HCAP Vancomcyin allergy, will use doxy cefepime f/u cultures 3. COPD exacerbation updrats (xopenex inplace of albuterol due to tachycardia) and steriods 4. A. Flutter intermittently in RVR doesnt appear to be on any rate control drugs at SNF may need IV meds if uncontrolled continue xarelto 5. Lung Mass pulmonary consulted 6. Schizophrenia continue baseline meds Full Code DVT pptx, Mary Louto
--- NOTE | 2020-09-13 15:00 | MHC.CM.PN ---
CM ATTEMPTED TO MEET WITH PT MULTIPLE TIMES, PT SLEEPING. CM SPOKE TO KEEGAN HINOJOSA AT [facility] WHERE PT IS A LTC RESIDENT. KEEGAN CONFIRMS THIS PT DOES NOT HAVE A NEXT OF KIN, HCP OR GUARDIAN AND IS HIS OWN PERSON. CURRENT DC PLAN IS TO RETURN TO [facility] VIA BLS
[2020-09-13] MEDS: Ipratropium Bromide 0.5 MG/2.5 ML SOLUTION INHALE (16:10)
--- NOTE | 2020-09-13 18:41 | PC.NURSE ---
Pt from the ER, arrived on unit incontinent of large amount of urine and small amount of dark loose stool. Pt awake, oriented to self, answers many questions appropriately but is vague about where he lives, why he is in the hospital and medical history. He was able to report he is a former smoker, when asked about ETOH use he states whenever I can . Pt lives in a SNF. He has no belongings, also states he has no teeth and no dentures. Pt was given a soft meal on arrival, oriented to room and call light. He is resting quietly.
[2020-09-13] MEDS: QUEtiapine Fumarate 25 MG TABLET PO (19:43)
[2020-09-13] MEDS: risperiDONE 1 MG TABLET PO (19:43)
[2020-09-14] VITALS (12 sets, daily range): BP systolic 92–148; BP diastolic 49–78; PULSE 78–132; RESP 18–20; TEMP 36.2–37.1; O2SAT 93–98
--- NOTE | 2020-09-14 | XR_ITS ---
EXAMINATION: XR CHEST CLINICAL INFORMATION: Follow-up exam for pneumonia and atelectasis COMPARISON: Chest radiograph from 09/12/[address] chest from 09/12/2020 TECHNIQUE: 2 views of the chest were obtained. FINDINGS: Redemonstration of patchy bilateral airspace opacities, relatively stable from prior imaging. There is bibasilar atelectasis, right greater than left. Consolidation involving the left upper lung field likely represents previously identified left upper lobe lung mass. There is no pneumothorax. The trachea is midline. The cardiomediastinal silhouette is stable. Aorta demonstrates atherosclerotic calcifications. There is no pleural effusion. Degenerative changes of the thoracic spine. Soft tissues are unremarkable. XR/XR chest 2V IMPRESSION: 1. Redemonstration of patchy bilateral airspace opacities, relatively stable from prior imaging. 2. Bibasilar atelectasis, right greater than left. 3. Consolidation involving the left upper lung field likely represents previously identified left upper lobe lung mass.
[2020-09-14] MEDS: 0.9 % Sodium Chloride Flush 3 ML SYRINGE IVFLUSH ×5 (00:34→21:20)
[2020-09-14] MEDS: cefEPime HCl 1 GM in 0.9 % Sodium Chloride 50 ML IV ×3 (03:19→21:14)
[2020-09-14 06:24] LABS: Hemoglobin 7.6 g/dl (14.0-18.0); Mean Corpuscular HGB Conc 29.2 g/dl (31.0-36.0); Mean Corpuscular Volume 78.5 fL (80-98); Mean Platelet Volume 9.6 fL (9.4-12.4); Platelet Count 381 X10*3/uL (160-400); Red Blood Count 3.31 X10*6/uL (4.60-5.80); Red Cell Distribution Width 15.3 % (11.0-16.0); White Blood Count 12.7 X10*3/uL (4.8-10.8)
[2020-09-14 07:10] LABS: Anion Gap 12 (12-20); Blood Urea Nitrogen 25 mg/dL (9-16); Calcium 8.1 mg/dL (8.4-10.2); Carbon Dioxide 34 mmol/L (22-29); Chloride 98 mmol/L (96-108); Creatinine Clr Calc Pharmacy 86.5; Estimated Glomerular Filt Rate > 60; Glucose Random 115 mg/dL (60-115); Potassium 4.3 mmol/L (3.3-5.1); Sodium 140 mmol/L (135-145)
[2020-09-14] MEDS: Ipratropium Bromide 0.5 MG/2.5 ML SOLUTION INHALE ×3 (07:53→20:15)
[2020-09-14] MEDS: DULoxetine HCl 30 MG CAPSULE.DR PO (08:35)
[2020-09-14] MEDS: Ferrous Sulfate 324 MG TABLET.DR PO (08:35)
[2020-09-14] MEDS: Rivaroxaban 20 MG TABLET PO (08:35)
[2020-09-14] MEDS: Torsemide 20 MG TABLET PO (08:35)
[2020-09-14] MEDS: Sennosides 8.6 MG TABLET PO (08:35)
--- NOTE | 2020-09-14 08:54 | MHC.CM.PN ---
CM met with Patient who is a LTC Patient at [facility]. Patient's goal is to return there and CM has initiated and will follow for dc planning.
--- NOTE | 2020-09-14 10:12 | PM.PNPUL ---
Subjective Subjective Date of Service: 09/14/20 Principal diagnosis: PNEUMONIA, COPD excerbation Interval history: This 74 years old gentleman admitted from a long-term care facility, is being treated for HCAP, and respiratory failure. He is the more alert today, and complaining of not feeling well. He is moderately short of breath but does not seem to be in distress. He is afebrile, denies chest pain. Complains of marked generalized weakness. Objective Data Labs CBC & Chem 7: 09/14/20 06:02 09/14/20 06:02 Labs: Laboratory Results - last 24 hr 09/14/20 09/14/20 06:02 06:02 WBC 12.7 H RBC 3.31 L Hgb 7.6 L Hct 26.0 L MCV 78.5 L MCH 23.0 L MCHC 29.2 L RDW 15.3 Plt Count 381 MPV 9.6 Absolute Nucleated RBC 0.000 Nucleated RBC % (auto) 0.0 Sodium 140 Potassium 4.3 Chloride 98 Carbon Dioxide 34 H Anion Gap 12 BUN 25 H Creatinine 0.75 Estim Creat Clear Calc 86.5 Estimated GFR > 60 Random Glucose 115 Calcium 8.1 L Microbiology Microbiology Results: Microbiology 09/12/20 10:19 Blood - Venous Blood Culture - Preliminary No growth after 24 hours. 09/12/20 10:02 Blood - Venous Blood Culture - Preliminary No growth after 24 hours. Review of Systems Review of Systems Yes all other systems are reviewed and are negative and Unobtainable due to mental status Physical Exam Vital Signs: Vital Signs: Last Vital Signs Temp 98.7 F 09/14/20 08:00 Pulse 107 H 09/14/20 08:00 Resp 19 09/14/20 08:00 BP 92/49 L 09/14/20 08:00 Pulse Ox 93 09/14/20 08:00 Body Mass Index 23.6 Const: General: comfortable, no acute distress (but SOB.), alert and awake Orientation/consciousness: patient oriented x3 HENMT: Head: Yes normal to inspection General nose exam: No nasal polyps present and No nasal discharge present Face and sinus: Yes sinuses nontender Mouth: oropharynx normal Throat: Yes posterior oropharynx normal Eyes: General: appearance normal, both eyes and all related structures Neck: Neck: Yes normal visual inspection, Yes no lymphadenopathy, Yes trachea midline and Yes no JVD Thyroid: Thyroid normal Chest: Chest palpation & inspection: normal inspection of the chest and normal palpation of entire chest wall Resp: Auscultation: crackles (Rt and lt. base ), no wheezes and diminished lung sounds (especially over Rt lower chest ) Cardio: Palpation: normal PMI Rate: regular rate Rhythm: regular rhythm Heart sounds: no gallops and no murmurs GI: Palpation (GI): Soft to palpation, nontender, No hepatosplenomegaly present and no masses Auscultation: normal bowel sounds Back/Spine/Pelvis: Thoracic/Lumbar Spine: thoracic and lumbar spine normal to inspection Skin: General skin exam: no rashes or lesions noted Neuro: General: patient oriented x3 and no focal motor deficits Cranial nerves: Yes CN's II-XII intact bilaterally Extrem: General: Yes normal to inspection, Yes no clubbing, cyanosis or edema, Yes no calf tenderness and No venous stasis dermatitis Psych: Other: Patient has chronic shows a phrenic disorder, he is conversing today but not clearly. Assessment and Plan Assessment and plan (1) Acute exacerbation of chronic obstructive pulmonary disease (COPD): Problem details: Slowly improving . Status: Acute Assessment and Plan: will recheck Blood gases today (venous ) (2) Hospital-acquired pneumonia: Problem details: Consolidations in Rt mid lung and Rt lower lobe , Possibilities are HCAP. or Atelactasis . Status: Acute Assessment and Plan: continue the Antibiotics as at present . Duo-Neb UDs qid Bronchoscopy to be performed (3) Hypoxia: Problem details: Sec to Ac . Excerbation of COPD Status: Acute Assessment and Plan: Continue O2 2L/mt (4) Mass of upper lobe of left lung: Problem details: Rounded Pneumonia VS Neoplasm . If Density persists , then may need FNAB , Status: Acute Time Spent With Patient Time: Total time spent is greater than 50% in coordination of care (as documented) at patient's floor/unit and/or counseling patient: Time with patient: 15 - 24 minutes
[2020-09-14 10:52] LABS: Base Excess VBG 23.1 mmol/L; HCO3 VBG 50 mmol/L; PCO2 VBG 79 mmHg; PO2 VBG 44 mmHg; pH VBG 7.41 (7.32-7.43)
--- NOTE | 2020-09-14 11:48 | HO.PM.IMPN ---
Subjective Subjective Date of Service: 09/14/20 Interval History: Seen in f/u for PNA, no sob, now in AFIB with RVR, no palpiation, no chest Review of Systems Gen: no fever Resp: no sob, no cough CV: no chest, no LUONG, no leg edema GI: No n/v, no abd pain Neuro: No confusion Physical Exam Vital Signs: Vital Signs: Last Vital Signs Temp 98.7 F 09/14/20 08:00 Pulse 107 H 09/14/20 08:00 Resp 19 09/14/20 08:00 BP 92/49 L 09/14/20 08:00 Pulse Ox 93 09/14/20 08:00 Body Mass Index 23.6 General: AO X 3, no acute distress Resp: Normal respiratory effort, CVS: S1,S2, irregular GI: +BS, NT, no distention Skin: No rash Neuro: motor grossly intact Psych: appropriate affect Objective Data Current Medications Generic Name Dose Route Start Last Admin Trade Name Freq PRN Reason Stop Dose Admin Acetaminophen 650 mg 09/12/20 17:26 Acetaminophen 325 Mg Tablet PO Q6H PRN Pain, Mild (Pain Scale 1-3) Acetaminophen 650 mg 09/12/20 17:26 Acetaminophen 325 Mg Tablet PO BID PRN Pain Bisacodyl 10 mg 09/12/20 17:26 Bisacodyl 10 Mg Supp.Rect [place] DAILY PRN Constipation Doxycycline Hyclate 100 mg 09/12/20 20:00 09/14/20 08:35 Doxycycline Hyclate 100 Mg Tablet PO 100 mg Q12H JOSEP Administration Duloxetine HCl 30 mg 09/13/20 09:00 09/14/20 08:35 Duloxetine Hcl 30 Mg Capsule. PO 30 mg DAILY JOSEP Administration Ferrous Sulfate 324 mg 09/13/20 09:00 09/14/20 08:35 Ferrous Sulfate 324 Mg Tablet. PO 324 mg DAILY JOSEP Administration Cefepime HCl 1 gm/ Sodium 50 mls @ 100 mls/hr 09/12/20 20:00 09/14/20 03:51 Chloride IV Infused Q8H [facility] Infusion Ipratropium [place] 0.5 mg 09/13/20 16:00 09/14/20 11:42 Ipratropium [place] 0.5 Mg/2.5 Ml Solution INHALE Not Given RQ4H WHILE AWAKE [facility] Levalbuterol HCl 1.25 mg 09/13/20 16:00 09/14/20 11:42 Levalbuterol Hcl 1.25 Mg/0.5 Ml Vial.Neb INHALE Not Given RQ4H WHILE AWAKE JOSEP Methylprednisolone Sodium Succinate 40 mg 09/12/20 19:30 09/14/20 08:34 Methylprednisolone Sod Succ/Pf 40 Mg/Ml Vial IVPUSH 40 mg Q12H JOSEP Administration Ondansetron HCl 4 mg 09/12/20 17:26 Ondansetron Hcl 4 Mg/2 Ml Vial IVPUSH Q8H PRN Nausea and Vomiting Quetiapine Fumarate 25 mg 09/12/20 21:00 09/13/20 19:43 Quetiapine Fumarate 25 Mg Tablet PO 25 mg BEDTIME JOSEP Administration Risperidone 1 mg 09/12/20 21:00 09/13/20 19:43 Risperidone 1 Mg Tablet PO 1 mg BEDTIME JOSEP Administration Senna 8.6 mg 09/13/20 09:00 09/14/20 08:35 Sennosides 8.6 Mg Tablet PO 8.6 mg DAILY JOSEP Administration Sodium Chloride 3 ml 09/13/20 00:00 09/14/20 08:34 0.9 % Sodium Chloride Flush 3 Ml Syringe IVFLUSH 3 ml QSHIFT JOSEP Administration Sodium Chloride 3 ml 09/13/20 02:28 09/14/20 08:35 0.9 % Sodium Chloride Flush 3 Ml Syringe IVFLUSH Not Given QSHIFT JOSEP Torsemide 20 mg 09/13/20 09:00 09/14/20 08:35 Torsemide 20 Mg Tablet PO 20 mg DAILY JOSEP Administration Protocol Labs CBC & Chem 7: 09/14/20 06:02 09/14/20 06:02 Microbiology Microbiology Results: Microbiology 09/12/20 10:19 Blood - Venous Blood Culture - Preliminary No growth after 24 hours. 09/12/20 10:02 Blood - Venous Blood Culture - Preliminary No growth after 24 hours. Assessment and Plan (1) Hypoxia: Problem details: Sec to Ac . Excerbation of COPD Status: Acute (2) Acute exacerbation of chronic obstructive pulmonary disease (COPD): Problem details: Slowly improving . Status: Acute (3) Hospital-acquired pneumonia: Problem details: Consolidations in Rt mid lung and Rt lower lobe , Possibilities are HCAP. or Atelactasis . Status: Acute Assessment and Plan: 74-year-old man presenting from [facility] with pneumonia, acute on chronic respiratory failure secondary to pneumonia and COPD exacerbation. 1. Acute on chronic respiratory failure with hypoxia and hypercarbia due to copd exacerbation + HCAP + possible Lung mass titrate o2 to keep saturations 90; ABG today Will have bronchoscopy in 48 off Xarelto 2. HCAP Vancomcyin allergy. On Cefepime 3. COPD exacerbation updrats (xopenex inplace of albuterol due to tachycardia) and steriods 4. A. Flutter with RVR, no on rate control meds, rvr propably due to acute illness. Start cardizem IV if BP is ok if not will try digoxin and get cardiology to see him 5. Lung Mass--To have Bronchoscopy as stated 6. Schizophrenia continue baseline meds Full Code DVT pptx, Xarelto (but will be on hold until
[2020-09-14] MEDS: dilTIAZem HCL 30 MG TABLET PO ×2 (14:19→18:23)
[2020-09-14] MEDS: QUEtiapine Fumarate 25 MG TABLET PO (21:14)
[2020-09-14] MEDS: risperiDONE 1 MG TABLET PO (21:14)
[2020-09-15] VITALS (9 sets, daily range): BP systolic 99–148; BP diastolic 47–68; PULSE 79–102; RESP 19–20; TEMP 36.4–37; O2SAT 94–100
[2020-09-15] MEDS: cefEPime HCl 1 GM in 0.9 % Sodium Chloride 50 ML IV ×3 (05:30→21:06)
[2020-09-15] MEDS: Ipratropium Bromide 0.5 MG/2.5 ML SOLUTION INHALE ×4 (08:07→20:18)
[2020-09-15] MEDS: 0.9 % Sodium Chloride Flush 3 ML SYRINGE IVFLUSH ×4 (08:22→21:06)
[2020-09-15] MEDS: Ferrous Sulfate 324 MG TABLET.DR PO (08:23)
[2020-09-15] MEDS: DULoxetine HCl 30 MG CAPSULE.DR PO (08:23)
[2020-09-15] MEDS: Torsemide 20 MG TABLET PO (08:24)
[2020-09-15] MEDS: Sennosides 8.6 MG TABLET PO (08:24)
[2020-09-15] MEDS: dilTIAZem HCL 30 MG TABLET PO ×3 (08:25→21:06)
--- NOTE | 2020-09-15 10:06 | HO.PM.IMPN ---
Subjective Subjective Date of Service: 09/15/20 Interval History: Seen in f/u for PNA, no sob, now in AFIB with RVR, no palpiation, no chest Review of Systems Gen: no fever Resp: no sob, no cough CV: no chest, no LUONG, no leg edema GI: No n/v, no abd pain Neuro: No confusion Physical Exam Vital Signs: Vital Signs: Last Vital Signs Temp 97.5 F 09/15/20 07:34 Pulse 93 09/15/20 08:25 Resp 19 09/15/20 07:34 BP 105/55 L 09/15/20 08:25 Pulse Ox 100 09/15/20 07:34 Body Mass Index 23.6 Objective Data Current Medications Generic Name Dose Route Start Last Admin Trade Name Freq PRN Reason Stop Dose Admin Acetaminophen 650 mg 09/12/20 17:26 Acetaminophen 325 Mg Tablet PO Q6H PRN Pain, Mild (Pain Scale 1-3) Acetaminophen 650 mg 09/12/20 17:26 Acetaminophen 325 Mg Tablet PO BID PRN Pain Bisacodyl 10 mg 09/12/20 17:26 Bisacodyl 10 Mg Supp.Rect [place] DAILY PRN Constipation Diltiazem HCl 30 mg 09/14/20 13:00 09/15/20 08:25 Diltiazem Hcl 30 Mg Tablet PO 30 mg QID JOSEP Administration Protocol Doxycycline Hyclate 100 mg 09/12/20 20:00 09/15/20 08:24 Doxycycline Hyclate 100 Mg Tablet PO 100 mg Q12H JOSEP Administration Duloxetine HCl 30 mg 09/13/20 09:00 09/15/20 08:23 Duloxetine Hcl 30 Mg Capsule. PO 30 mg DAILY JOSEP Administration Ferrous Sulfate 324 mg 09/13/20 09:00 09/15/20 08:23 Ferrous Sulfate 324 Mg Tablet. PO 324 mg DAILY JOSEP Administration Cefepime HCl 1 gm/ Sodium 50 mls @ 100 mls/hr 09/12/20 20:00 09/15/20 06:03 Chloride IV Infused Q8H JOSEP Infusion Ipratropium [place] 0.5 mg 09/13/20 16:00 09/15/20 08:07 Ipratropium [place] 0.5 Mg/2.5 Ml Solution INHALE 0.5 mg RQ4H WHILE AWAKE JOSEP Administration Levalbuterol HCl 1.25 mg 09/13/20 16:00 09/15/20 08:07 Levalbuterol Hcl 1.25 Mg/0.5 Ml Vial.Neb INHALE 1.25 mg RQ4H WHILE AWAKE JOSEP Administration Methylprednisolone Sodium Succinate 40 mg 09/12/20 19:30 09/15/20 08:22 Methylprednisolone Sod Succ/Pf 40 Mg/Ml Vial IVPUSH 40 mg Q12H JOSEP Administration Ondansetron HCl 4 mg 09/12/20 17:26 Ondansetron Hcl 4 Mg/2 Ml Vial IVPUSH Q8H PRN Nausea and Vomiting Quetiapine Fumarate 25 mg 09/12/20 21:00 09/14/20 21:14 Quetiapine Fumarate 25 Mg Tablet PO 25 mg BEDTIME JOSEP Administration Risperidone 1 mg 09/12/20 21:00 09/14/20 21:14 Risperidone 1 Mg Tablet PO 1 mg BEDTIME JOSEP Administration Senna 8.6 mg 09/13/20 09:00 09/15/20 08:24 Sennosides 8.6 Mg Tablet PO 8.6 mg DAILY JOSEP Administration Sodium Chloride 3 ml 09/13/20 00:00 09/15/20 08:22 0.9 % Sodium Chloride Flush 3 Ml Syringe IVFLUSH 3 ml QSHIFT JOSEP Administration Sodium Chloride 3 ml 09/13/20 02:28 09/15/20 08:29 0.9 % Sodium Chloride Flush 3 Ml Syringe IVFLUSH Not Given QSHIFT JOSEP Torsemide 20 mg 09/13/20 09:00 09/15/20 08:24 Torsemide 20 Mg Tablet PO 20 mg DAILY JOSEP Administration Protocol Labs CBC & Chem 7: 09/14/20 06:02 09/14/20 06:02 Microbiology Microbiology Results: Microbiology 09/12/20 10:19 Blood - Venous Blood Culture - Preliminary No growth after 48 hours. 09/12/20 10:02 Blood - Venous Blood Culture - Preliminary No growth after 48 hours. Assessment and Plan (1) Hypoxia: Problem details: Sec to Ac . Excerbation of COPD Status: Acute (2) Acute exacerbation of chronic obstructive pulmonary disease (COPD): Problem details: Slowly improving . Status: Acute (3) Hospital-acquired pneumonia: Status: Acute Assessment and Plan: 74-year-old man presenting from [facility] with pneumonia, acute on chronic respiratory failure secondary to pneumonia and COPD exacerbation. 1. Acute on chronic respiratory failure with hypoxia and hypercarbia due to copd exacerbation + HCAP + possible Lung mass titrate o2 to keep saturations 90; ABG on 09/14 was normal, no hypoxia at this time. Wean off O2 Will have bronchoscopy in 48 off Xarelto 2. HCAP Vancomcyin allergy. On Cefepime 3. COPD exacerbation updrats (xopenex inplace of albuterol due to tachycardia) and steriods 4. A. Flutter with RVR, no on rate control meds, rvr propably due to acute illness. Started cardizem on PO cardizem with good control and if persists cardiology consult 5. Lung Mass--To have Bronchoscopy as stated 6. Schizophrenia continue baseline meds Full Code DVT pptx, Xarelto (but will be on hold until)
--- NOTE | 2020-09-15 12:44 | MHC.CM.PN ---
Per ROUNDS discussion, Patient will get a Bronch tomorrow. Patient is receiving IV Cefepime r/t PNA and IV Solu Medrol. Goal is for Patient to return to [facility] and CM will continue to follow for possible need to adjust the dc plan.
[2020-09-15] MEDS: risperiDONE 1 MG TABLET PO (21:06)
[2020-09-15] MEDS: QUEtiapine Fumarate 25 MG TABLET PO (21:06)
[2020-09-16] VITALS (13 sets, daily range): BP systolic 99–126; BP diastolic 51–76; PULSE 80–125; RESP 18–22; TEMP 36.3–36.9; O2SAT 90–97
[2020-09-16] MEDS: cefEPime HCl 1 GM in 0.9 % Sodium Chloride 50 ML IV ×3 (04:19→21:08)
[2020-09-16] MEDS: DULoxetine HCl 30 MG CAPSULE.DR PO (07:20)
[2020-09-16] MEDS: Ferrous Sulfate 324 MG TABLET.DR PO (07:20)
[2020-09-16] MEDS: Torsemide 20 MG TABLET PO (07:20)
[2020-09-16] MEDS: Sennosides 8.6 MG TABLET PO (07:21)
[2020-09-16] MEDS: dilTIAZem HCL 30 MG TABLET PO ×4 (07:21→21:08)
[2020-09-16] MEDS: 0.9 % Sodium Chloride Flush 3 ML SYRINGE IVFLUSH ×3 (07:23→23:48)
[2020-09-16] MEDS: Ipratropium Bromide 0.5 MG/2.5 ML SOLUTION INHALE ×4 (08:06→18:56)
--- NOTE | 2020-09-16 09:43 | PM.PNPUL ---
Subjective Subjective Date of Service: 09/17/20 <Teresa Hood - Last Filed: 09/17/20 12:38> 09/18/20 <Jane Lujan MD - Last Filed: 09/18/20 11:32> Principal diagnosis: PNEUMONIA, COPD excerbation <Jane Lujan MD - Last Filed: 09/18/20 11:32> Interval history: THIS 68 SAYS 4 YEARS OLD GENTLEMAN BEING TREATED FOR BILATERAL PNEUMONIA, AND A MASS IN LEFT UPPER LOBE, HE HAS DEFINITELY IMPROVED, HAS HAD NO FEVER, IS MORE ALERT. DENIES ANY RESPIRATORY DISTRESS, AND DOING WELL ON OXYGEN 2 L/MINUTE. BRONCHOSCOPIC EXAM BY DR. BOLDEN ON 09/17/2020, COPIOUS AMOUNT OF MUCUS SECRETIONS FOR ASPIRATED. GRAM STAIN OF THE RESPIRATORY SECRETIONS IS NEGATIVE SO FOR. <Jane Lujan MD - Last Filed: 09/18/20 11:32> Objective Data Labs CBC & Chem 7: : 09/17/20 Unknown 09/17/20 00:05 <Teresa Hood - Last Filed: 09/17/20 12:38> Microbiology Microbiology Results: Microbiology 09/12/20 10:19 Blood - Venous Blood Culture - Preliminary No growth after 48 hours. 09/12/20 10:02 Blood - Venous Blood Culture - Preliminary No growth after 48 hours. <Jane Lujan MD - Last Filed: 09/18/20 11:32> Review of Systems Review of Systems Yes all other systems are reviewed and are negative <Jane Lujan MD - Last Filed: 09/18/20 11:32> Physical Exam Vital Signs: Vital Signs: Last Vital Signs Temp 97.9 F 09/16/20 07:21 Pulse 100 09/16/20 08:08 Resp 18 09/16/20 07:21 BP 99/60 09/16/20 07:21 Pulse Ox 93 09/16/20 07:21 Body Mass Index 23.6 <Jane Lujan MD - Last Filed: 09/18/20 11:32> Const: General: comfortable, no acute distress, alert and awake <Jane Lujan MD - Last Filed: 09/18/20 11:32> Orientation/consciousness: patient oriented x3 <Jane Lujan MD - Last Filed: 09/18/20 11:32> HENMT: Head: Yes normal to inspection <Jane Lujan MD - Last Filed: 09/18/20 11:32> General nose exam: No nasal polyps present and No nasal discharge present <Jane Lujan MD - Last Filed: 09/18/20 11:32> Face and sinus: Yes sinuses nontender <Jane Lujan MD - Last Filed: 09/18/20 11:32> Mouth: oropharynx normal <Jane Lujan MD - Last Filed: 09/18/20 11:32> Throat: Yes posterior oropharynx normal <Jane Lujan MD - Last Filed: 09/18/20 11:32> Eyes: General: appearance normal, both eyes and all related structures <Jane Lujan MD - Last Filed: 09/18/20 11:32> Neck: Neck: Yes normal visual inspection, Yes no lymphadenopathy, Yes trachea midline and Yes no JVD <Jane Lujan MD - Last Filed: 09/18/20 11:32> Thyroid: Thyroid normal <Jane Lujan MD - Last Filed: 09/18/20 11:32> Chest: Chest palpation & inspection: normal inspection of the chest and normal palpation of entire chest wall <Jane Lujan MD - Last Filed: 09/18/20 11:32> Resp: Auscultation: crackles (A FEW OVER THE LOWER LOBES ) and diminished lung sounds <Jane Lujan MD - Last Filed: 09/18/20 11:32> Cardio: Palpation: normal PMI <Jane Lujan MD - Last Filed: 09/18/20 11:32> Rate: regular rate <Jane Lujan MD - Last Filed: 09/18/20 11:32> Rhythm: regular rhythm <Jane Lujan MD - Last Filed: 09/18/20 11:32> Heart sounds: no gallops and no murmurs <Jane Lujan MD - Last Filed: 09/18/20 11:32> GI: Palpation (GI): Soft to palpation, nontender, No hepatosplenomegaly present and no masses <Jane Lujan MD - Last Filed: 09/18/20 11:32> Auscultation: normal bowel sounds <Jane Lujan MD - Last Filed: 09/18/20 11:32> Back/Spine/Pelvis: Thoracic/Lumbar Spine: thoracic and lumbar spine normal to inspection <Jane Lujan MD - Last Filed: 09/18/20 11:32> Skin: General skin exam: no rashes or lesions noted <Jane Lujan MD - Last Filed: 09/18/20 11:32> Neuro: General: patient oriented x3, gait normal (PT. IS NON AMBULATORY .) and no focal motor deficits <Jane Lujan MD - Last Filed: 09/18/20 11:32> Cranial nerves: Yes CN's II-XII intact bilaterally <Jane Lujan MD - Last Filed: 09/18/20 11:32> Extrem: General: Yes normal to inspection, Yes no clubbing, cyanosis or edema, Yes no calf tenderness and No venous stasis dermatitis <Jane Lujan MD - Last Filed: 09/18/20 11:32> Psych: Appearance: disheveled <Jane Lujan MD - Last Filed: 09/18/20 11:32> Mental Status: other (CHRONIC SCHIZOPHRENIA , RELATIVELY QUIET .) <Jane Lujan MD - Last Filed: 09/18/20 11:32> Speech and movement: Normal speech and movement present <Jane Lujan MD - Last Filed: 09/18/20 11:32> Assessment and Plan Assessment and plan (1) Respiratory failure with hypoxia and hypercapnia: Problem details: HAS CHRONIC COMPENSATED RESPIRATORY FAILURE . WOULD NOT COOPERATE TO USE NIVS . WILL KEEP HIM ON O2 ,TO KEEP O2 SAT ABOVE 90 % <Teresa Anti - Last Filed: 09/17/20 12:38> Status: Acute <Teresa Anti - Last Filed: 09/17/20 12:38> (2) Mass of upper lobe of left lung: Problem details: Rounded Pneumonia VS Neoplasm . MAY NEED FNAB . AT ALATER STAGE . <Teresa Anti - Last Filed: 09/17/20 12:38> Status: Acute <Teresa Anti - Last Filed: 09/17/20 12:38> (3) Hypoxia: Problem details: CONTINUE TO TREAT WITH O2 2L/MT . <Teresa Anti - Last Filed: 09/17/20 12:38> Status: Acute <Teresa Anti - Last Filed: 09/17/20 12:38> (4) Acute exacerbation of chronic obstructive pulmonary disease (COPD): Problem details: AC . EXCERBATION IS IMPROVING , HE SEEMS TO BE AT BASELINE . <Teresa Anti - Last Filed: 09/17/20 12:38> Status: Acute <Teresa Anti - Last Filed: 09/17/20 12:38> Assessment and Plan: I THINK WE CAN DC IV SOLUMEDROL AT THIS TIME , AND START PREDNIOSNE PO, WITH ATAPERING DOSE OVER NEXT TWO WEEKS . <Jane Lujan MD - Last Filed: 09/18/20 11:32> (5) Hospital-acquired pneumonia: Problem details: IMPROVING , REPEAT CHEST XRAY , SHOWS RESOLUTION . COMPLETE THE COURSE OF ABs ( DOXYCYCLINE ) <Teresa Anti - Last Filed: 09/17/20 12:38> Status: Acute <Teresa Anti - Last Filed: 09/17/20 12:38> Time Spent With Patient Time: Total time spent is greater than 50% in coordination of care (as documented) at patient's floor/unit and/or counseling patient: <Jane Lujan MD - Last Filed: 09/18/20 11:32> Time with patient: 15 - 24 minutes <Jane Lujan MD - Last Filed: 09/18/20 11:32>
--- NOTE | 2020-09-16 09:47 | PM.PNPUL ---
Subjective Subjective Date of Service: 09/16/20 Principal diagnosis: PNEUMONIA, COPD excerbation Interval history: THIS 74 YEARS OLD GENTLEMAN FROM A LONG-TERM FACILITY, HAS BEEN ADMITTED TO THE SINCE 09/13 20, WITH THE BILATERAL PNEUMONIA, ACUTE EXACERBATION OF COPD, AND MASS LIKE OPACITY IN LEFT UPPER LOBE ALSO SCATTERED ROUNDED OPACITIES ON BOTH SIDES ESPECIALLY IN LEFT LUNG. HE IS BEING TREATED FOR HCAP, WITH SUFFER UP I AM AND DOXYCYCLINE. HE IS ALSO BEING TREATED FOR ACUTE EXACERBATION OF COPD WITH IV SOLU-MEDROL OXYGEN SUPPLEMENT. HE IS GETTING BETTER, HAS REMAINED AFEBRILE, BUT STILL SHORT OF BREATH AND MOSTLY REMAINING IN BED. HE IS BEING SCHEDULED TO UNDERGO BRONCHOSCOPIC EXAMINATION, WHICH WILL BE DONE ON 09/17. HAS BEEN OFF ANTICOAGULATION FOR THE LAST 2 DAYS. HE ALSO HAS CHRONIC COMPENSATED RESPIRATORY FAILURE WITH CO2 RETENTION. MENTAL STATUS HAS IMPROVED AND SEEMS TO BE AT BASELINE. Objective Data Labs CBC & Chem 7: 09/14/20 06:02 09/14/20 06:02 Microbiology Microbiology Results: Microbiology 09/12/20 10:19 Blood - Venous Blood Culture - Preliminary No growth after 48 hours. 09/12/20 10:02 Blood - Venous Blood Culture - Preliminary No growth after 48 hours. Review of Systems Review of Systems REVIEW OF SYSTEMS IS NOT, MEANINGFUL BECAUSE THIS PATIENT IS MAIN COMPLAINT IS I AM JUST NOT FEELING GOOD HE IS NOT ABLE TO GIVE ANY DETAILS BECAUSE OF HIS POOR MENTAL STATUS. Reports confusion Psychiatric: Reports confusion Physical Exam Vital Signs: Vital Signs: Last Vital Signs Temp 97.9 F 09/16/20 07:21 Pulse 100 09/16/20 08:08 Resp 18 09/16/20 07:21 BP 99/60 09/16/20 07:21 Pulse Ox 93 09/16/20 07:21 Body Mass Index 23.6 Const: Other: IS CHRONICALLY SICK, SOB OF BREATH ON CONVERSATION General: comfortable, no acute distress, alert, awake and confusion Orientation/consciousness: confusion HENMT: Head: Yes normal to inspection General nose exam: No nasal polyps present and No nasal discharge present Face and sinus: Yes sinuses nontender Mouth: oropharynx normal Throat: Yes posterior oropharynx normal Eyes: General: appearance normal, both eyes and all related structures Neck: Neck: Yes normal visual inspection, Yes no lymphadenopathy, Yes trachea midline and Yes no JVD Thyroid: Thyroid normal Chest: Chest palpation & inspection: normal inspection of the chest and normal palpation of entire chest wall Resp: Auscultation: crackles (A FEW CREPS OVER BASES .) and diminished lung sounds Cardio: Palpation: normal PMI Rate: regular rate Rhythm: regular rhythm Heart sounds: no gallops and no murmurs GI: Palpation (GI): Soft to palpation, nontender, No hepatosplenomegaly present and no masses Auscultation: normal bowel sounds Back/Spine/Pelvis: Thoracic/Lumbar Spine: thoracic and lumbar spine normal to inspection Skin: General skin exam: no rashes or lesions noted Neuro: General: No gait normal (NON AMBULATORY ), no focal motor deficits and confusion Cranial nerves: Yes CN's II-XII intact bilaterally Extrem: General: Yes normal to inspection, Yes no clubbing, cyanosis or edema, Yes no calf tenderness and No venous stasis dermatitis Psych: Appearance: disheveled Speech and movement: Clear speech present and Slowed movement present (Neuro) Assessment and Plan Assessment and plan (1) Acute exacerbation of chronic obstructive pulmonary disease (COPD): Problem details: Slowly improving . Status: Acute Assessment and Plan: WILL DECREASE DOSE OF SOLUMEDROL, SLOWLY (2) Hospital-acquired pneumonia: Problem details: HEALTH CARE AQUIRED PNEUMONIA, Status: Acute Assessment and Plan: CONTINUE TO TREAT WITH CEFEPIME AND DOXYCYCLINE (3) Respiratory failure with hypoxia and hypercapnia: Problem details: HAS CHRONIC COMPENSATED RESPIRATORY FAILURE . WOULD NOT COOPERATE TO USE NIVS . Status: Acute (4) Mass of upper lobe of left lung: Problem details: Rounded Pneumonia VS Neoplasm . Bronchoscopy , by Dr. Kay planned for tomorrow , If non diagnostic , and the density persists , then at a later stage may require FANB. Status: Acute Time Spent With Patient Time: Total time spent is greater than 50% in coordination of care (as documented) at patient's floor/unit and/or counseling patient: Time with patient: 15 - 24 minutes
--- NOTE | 2020-09-16 12:28 | HO.PM.IMPN ---
Subjective Subjective Date of Service: 09/16/20 Interval History: Seen in f/u for PNA, doing well, no specific complaint hypoxia is improving. Review of Systems Gen: no fever Resp: no sob, no cough CV: no chest, no LUONG, no leg edema GI: No n/v, no abd pain Neuro: No confusion Physical Exam Vital Signs: Vital Signs: Last Vital Signs Temp 97.4 F 09/16/20 11:39 Pulse 85 09/16/20 11:39 Resp 22 H 09/16/20 11:39 BP 116/61 09/16/20 11:39 Pulse Ox 93 09/16/20 11:39 Body Mass Index 23.6 Objective Data Current Medications Generic Name Dose Route Start Last Admin Trade Name Freq PRN Reason Stop Dose Admin Acetaminophen 650 mg 09/12/20 17:26 Acetaminophen 325 Mg Tablet PO Q6H PRN Pain, Mild (Pain Scale 1-3) Acetaminophen 650 mg 09/12/20 17:26 Acetaminophen 325 Mg Tablet PO BID PRN Pain Bisacodyl 10 mg 09/12/20 17:26 Bisacodyl 10 Mg Supp.Rect AL DAILY PRN Constipation Diltiazem HCl 30 mg 09/14/20 13:00 09/16/20 12:27 Diltiazem Hcl 30 Mg Tablet PO 30 mg QID JOSEP Administration Protocol Doxycycline Hyclate 100 mg 09/12/20 20:00 09/16/20 07:20 Doxycycline Hyclate 100 Mg Tablet PO 100 mg Q12H JOSEP Administration Duloxetine HCl 30 mg 09/13/20 09:00 09/16/20 07:20 Duloxetine Hcl 30 Mg Capsule. PO 30 mg DAILY JOSEP Administration Ferrous Sulfate 324 mg 09/13/20 09:00 09/16/20 07:20 Ferrous Sulfate 324 Mg Tablet. PO 324 mg DAILY JOSEP Administration Cefepime HCl 1 gm/ Sodium 50 mls @ 100 mls/hr 09/12/20 20:00 09/16/20 12:13 Chloride IV Infused Q8H JOSEP Infusion Ipratropium [place] 0.5 mg 09/13/20 16:00 09/16/20 11:23 Ipratropium [place] 0.5 Mg/2.5 Ml Solution INHALE 0.5 mg RQ4H WHILE AWAKE JOSEP Administration Levalbuterol HCl 1.25 mg 09/13/20 16:00 09/16/20 11:23 Levalbuterol Hcl 1.25 Mg/0.5 Ml Vial.Neb INHALE 1.25 mg RQ4H WHILE AWAKE JOSEP Administration Methylprednisolone Sodium Succinate 40 mg 09/12/20 19:30 09/16/20 07:23 Methylprednisolone Sod Succ/Pf 40 Mg/Ml Vial IVPUSH 09/16/20 19:30 40 mg Q12H JOSEP Administration Methylprednisolone Sodium Succinate 20 mg 09/17/20 11:59 Methylprednisolone Sod Succ/Pf 40 Mg/Ml Vial IVPUSH Q12H JOSEP Ondansetron HCl 4 mg 09/12/20 17:26 Ondansetron Hcl 4 Mg/2 Ml Vial IVPUSH Q8H PRN Nausea and Vomiting Quetiapine Fumarate 25 mg 09/12/20 21:00 09/15/20 21:06 Quetiapine Fumarate 25 Mg Tablet PO 25 mg BEDTIME JOSEP Administration Risperidone 1 mg 09/12/20 21:00 09/15/20 21:06 Risperidone 1 Mg Tablet PO 1 mg BEDTIME JOSEP Administration Senna 8.6 mg 09/13/20 09:00 09/16/20 07:21 Sennosides 8.6 Mg Tablet PO 8.6 mg DAILY JOSEP Administration Sodium Chloride 3 ml 09/13/20 00:00 09/16/20 07:23 0.9 % Sodium Chloride Flush 3 Ml Syringe IVFLUSH 3 ml QSHIFT JOSEP Administration Sodium Chloride 3 ml 09/13/20 02:28 09/16/20 07:24 0.9 % Sodium Chloride Flush 3 Ml Syringe IVFLUSH Not Given QSHIFT JOSEP Torsemide 20 mg 09/13/20 09:00 09/16/20 07:20 Torsemide 20 Mg Tablet PO 20 mg DAILY JOSEP Administration Protocol Labs CBC & Chem 7: 09/14/20 06:02 09/14/20 06:02 Microbiology Microbiology Results: Microbiology 09/12/20 10:19 Blood - Venous Blood Culture - Preliminary No growth after 48 hours. 09/12/20 10:02 Blood - Venous Blood Culture - Preliminary No growth after 48 hours. Assessment and Plan (1) Hypoxia: Status: Acute (2) Acute exacerbation of chronic obstructive pulmonary disease (COPD): Status: Acute (3) Hospital-acquired pneumonia: Status: Acute Assessment and Plan: 74-year-old man presenting from [facility] with pneumonia, acute on chronic respiratory failure secondary to pneumonia and COPD exacerbation. 1. Acute on chronic respiratory failure with hypoxia and hypercarbia due to copd exacerbation + HCAP + possible Lung mass titrate o2 to keep saturations 90; ABG on 09/14 was normal, no hypoxia at this time. Wean off O2 Will have bronchoscopy tomorrow, off Xarelto 2. HCAP Vancomcyin allergy. On Cefepime, change to PO Augmentin after bronch 3. COPD exacerbation updrats (xopenex inplace of albuterol due to tachycardia) and steriods 4. A. Flutter with RVR, no on rate control meds, rvr propably due to acute illness. Change to long acting cardizem CD 120 5. Lung Mass--To have Bronchoscopy as stated 6. Schizophrenia continue baseline meds Full Code DVT pptx, Xarelto (but will be on hold until)
[2020-09-16] MEDS: QUEtiapine Fumarate 25 MG TABLET PO (21:08)
[2020-09-16] MEDS: risperiDONE 1 MG TABLET PO (21:09)
[2020-09-16] MEDS: Morphine Sulfate 2 MG/ML CARTRIDGE 1 MG IVPUSH (23:45)
[2020-09-17] VITALS (19 sets, daily range): BP systolic 94–124; BP diastolic 48–77; PULSE 80–120; RESP 15–28; TEMP 36–37.3; O2SAT 88–100
[2020-09-17 00:21] LABS: Pt Ventilation O2% 100%
--- NOTE | 2020-09-17 00:38 | PC.NURSE ---
2300 vitals pt was reported to have o2 sat of 71. o2 increased to 100% o2 non rebreather. Sat increased to 95% hospitalist notified, and respiratory called to room. MD order stat chest XR, BNP, ABG, morphine 1mg IV push. Pt given morphine at 2346, pt removed from nonrebreather and put back on NC. Started at 3L o2, sats continuously in mid 80%, increased o2 to 7L, pt sats 90%. currently awaiting lab results.
[2020-09-17 00:44] LABS: B Type Natriuretic Peptide 92 pg/mL (<100)
[2020-09-17 01:11] LABS: pH ABG 7.45 (7.35-7.45)
[2020-09-17 01:12] LABS: HCO3 ABG 52 mmol/L (22-26); PO2 ABG 142 mmHg (83-108)
[2020-09-17 01:15] LABS: ABG PCO2 73 mmHg (32-45)
--- NOTE | 2020-09-17 01:38 | PM.EVENT ---
Event Note Date of Service: 09/17/20 Event Note: Hypoxia: At around 1:00 a.m. on mention patient become acutely short of breath. And patient oxygen saturations dipped to 70s with rapid improvement on supplemental oxygen; patient initially required non-rebreather subsequently transitioned to nasal cannula at 5-7 L. On exam patient is not in distress. Coarse breath sounds. Rhonchi. ABG; fairly normal. ProBNP within the normal limits Chest x-ray showed findings similar to prior imaging-bilateral infiltrates. Patient on antibiotics. Patient is on Xarelto-less concern for PE. Two nights prior patient had lot of mucus secretions. Currently concern for possible mucus contributing to hypoxia. Patient improving symptomatically. Spoke to RN for chest physiotherapy. Nebulizations p.r.n.
[2020-09-17] MEDS: Albuterol/Iprat 2.5/0.5MG 3 ML AMPUL.NEB INHALE (02:09)
[2020-09-17] MEDS: cefEPime HCl 1 GM in 0.9 % Sodium Chloride 50 ML IV ×3 (03:33→22:01)
[2020-09-17 05:16] LABS: Anion Gap 11 (12-20); Blood Urea Nitrogen 33 mg/dL (9-16); Calcium 8.4 mg/dL (8.4-10.2); Carbon Dioxide 39 mmol/L (22-29); Chloride 90 mmol/L (96-108); Creatinine Clr Calc Pharmacy 76.3; Estimated Glomerular Filt Rate > 60; Glucose Random 132 mg/dL (60-115); Potassium 4.4 mmol/L (3.3-5.1); Sodium 136 mmol/L (135-145)
--- NOTE | 2020-09-17 06:55 | PC.NURSE ---
pt doing well as of 0655. Pt o2 being titrated down from 7L to currently at 4L. O2 sats running in low 90% continuously. Pt still has expiratory rhonchi. Labs co2 73, co3 52, bnp 92 ph 7.45. Md aware of values.
[2020-09-17] MEDS: Ipratropium Bromide 0.5 MG/2.5 ML SOLUTION INHALE ×4 (07:38→19:54)
--- NOTE | 2020-09-17 09:12 | MHC.CM.PN ---
Per discussion with MD, Patient is not yet medically cleared for dc to return to [facility] (BRONCHOSCOPY TODAY);CM will continue to follow for dc planning.
[2020-09-17] MEDS: 0.9 % Sodium Chloride Flush 3 ML SYRINGE IVFLUSH ×3 (09:42→21:00)
[2020-09-17] MEDS: dilTIAZem HCL 30 MG TABLET PO ×2 (09:48→15:56)
--- NOTE | 2020-09-17 12:38 | P.CONAN_ITS ---
[facility] Past Medical History Medical History COPD (chronic obstructive pulmonary disease) Low back pain Mass of upper lobe of left lung Mass of upper lobe of left lung Other iron deficiency anemias Respiratory failure with hypoxia and hypercapnia Schizoaffective disorder Typical atrial flutter Social History Social History Household Members: Other Household Members Other:: lives in SNF Housing: Long Term Do you presently have visiting nurse or other home services: No Unable to assess alcohol history related to: Unable to respond Alcohol intake: never Smoking Status: Current every day smoker Tobacco Type: Cigarette Packs Per Day: 1 Cigarettes Per Day: 4 Smoked in Last 30 Days: No Patient Interested in Nicotine Replacement: No Use of substances other than those prescribed or required for medical reasons: No Currently Displaying Signs/Symptoms of Drug Intoxication Withdrawal: No Have you been hit, kicked, punched, or otherwise hurt by someone within the past year? If so, by whom?: No Do you feel safe in your current relationship?: No Current Relationship Is there a partner from a previous relationship who is making you feel unsafe now?: No Are you made to feel afraid or neglected: No Advance Directives: No Advance Directives Information Provided: No Do you have thoughts of harming others: None Do you have a plan to hurt others: No Plan Recently lost weight without trying: Unsure service: Yes Current occupational status: disabled Meds Allergies Allergy/AdvReac Type Severity Reaction Status Date / Time ciprofloxacin Allergy Intermediate Unknown Verified 09/12/20 10:45 vancomycin Allergy Mild Unknown Verified 09/12/20 10:45 metronidazole Allergy Unknown Verified 09/12/20 10:45 mushroom Allergy Unknown Verified 09/12/20 10:45 Home Medications Medication Instructions Recorded Confirmed Type acetaminophen 325 mg capsule 650 mg PO BID PRN 08/16/20 09/12/20 History albuterol sulfate 90 mcg/actuation 2 puff INHALATION Q6H PRN 08/16/20 09/12/20 History aerosol inhaler bisacodyl 10 mg rectal suppository 10 mg IN DAILY PRN 08/16/20 09/12/20 History budesonide-formoterol HFA 160 2 puff INHALATION BID 08/16/20 09/12/20 History mcg-4.5 mcg/actuation aerosol inhaler duloxetine 30 mg capsule,delayed 30 mg PO DAILY 08/16/20 09/12/20 History release ferrous sulfate 325 mg (65 mg 325 mg PO DAILY 08/16/20 09/12/20 History iron) tablet prednisone 10 mg tablet 10 mg PO DAILY 08/16/20 09/12/20 History quetiapine 25 mg tablet 25 mg PO BEDTIME 08/16/20 09/12/20 History risperidone 1 mg tablet 1 mg PO BEDTIME 08/16/20 09/12/20 History rivaroxaban 20 mg tablet 20 mg PO DAILY 08/16/20 09/12/20 History sennosides 8.6 mg capsule 8.6 mg PO DAILY 08/16/20 09/12/20 History tiotropium bromide 18 mcg capsule 1 cap INHALATION DAILY 08/16/20 09/12/20 History with inhalation device torsemide 20 mg tablet 20 mg PO DAILY 08/16/20 09/12/20 History Exam Exam Date and Time: September 17, 2020 1238 Height,Weight and Vital Signs: Height 5 ft 10 in Weight 74.9 kg Last Vital Signs Temp 97.7 F 09/17/20 07:29 Pulse 82 09/17/20 12:05 Resp 23 H 09/17/20 07:29 BP 105/66 09/17/20 07:29 Pulse Ox 90 L 09/17/20 07:29 Pertinent Lab Results Pertinent Lab Results: Laboratory Tests 09/12/20 09/12/20 09/12/20 09:58 09:58 09:59 WBC 10.7 RBC 3.60 L Hgb 8.4 L Hct 28.4 L MCV 78.9 L MCH 23.3 L MCHC 29.6 L RDW 15.5 Plt Count 305 MPV 10.1 Immature Gran % (Auto) 0.4 Neut % (Auto) 78.9 H Lymph % (Auto) 10.2 L Davis % (Auto) 10.0 Eos % (Auto) 0.1 Baso % (Auto) 0.4 Lymph # (Auto) 1.1 L Davis # (Auto) 1.1 Eos # (Auto) 0.0 Baso # (Auto) 0.0 Abs Immat Gran (auto) 0.04 H Absolute Neuts (auto) 8.6 H Absolute Nucleated RBC 0.000 Nucleated RBC % (auto) 0.0 Smear Tech's Comments VERIFIED ABG pH ABG pCO2 ABG pO2 ABG HCO3 ABG O2 Saturation ABG Base Excess VBG pH VBG pCO2 VBG pO2 VBG HCO3 VBG O2 Saturation VBG Base Excess Oxygen Given Sodium 138 Potassium 4.3 Chloride 94 L Carbon Dioxide 34 H Anion Gap 14 BUN 17 H Creatinine 0.73 Estim Creat Clear Calc 88.8 Estimated GFR > 60 Random Glucose 115 Lactic Acid Calcium 8.4 Total Bilirubin 0.3 Direct Bilirubin 0.2 AST 17 ALT < 6 Alkaline Phosphatase 99 Troponin I High Sens B-Natriuretic Peptide Total Protein 6.0 L Albumin 3.4 L Lipase 19 COVID-19 (REYES) Negative COVID-19 [employer] See Note Blood Type Antibody Screen 09/12/20 09/12/20 09/12/20 10:19 11:38 11:39 WBC RBC Hgb Hct MCV MCH MCHC RDW Plt Count MPV Immature Gran % (Auto) Neut % (Auto) Lymph % (Auto) Davis % (Auto) Eos % (Auto) Baso % (Auto) Lymph # (Auto) Davis # (Auto) Eos # (Auto) Baso # (Auto) Abs Immat Gran (auto) Absolute Neuts (auto) Absolute Nucleated RBC Nucleated RBC % (auto) Smear Tech's Comments ABG pH ABG pCO2 ABG pO2 ABG HCO3 ABG O2 Saturation ABG Base Excess VBG pH 7.39 VBG pCO2 81 VBG pO2 76 VBG HCO3 50 VBG O2 Saturation 93.0 VBG Base Excess 22.2 Oxygen Given Sodium Potassium Chloride Carbon Dioxide Anion Gap BUN Creatinine Estim Creat Clear Calc Estimated GFR Random Glucose Lactic Acid 0.7 Calcium Total Bilirubin Direct Bilirubin AST ALT Alkaline Phosphatase Troponin I High Sens 62.2 H B-Natriuretic Peptide 94 Total Protein Albumin Lipase COVID-19 (REYES) COVID-19 [employer] Blood Type Antibody Screen 09/12/20 09/12/20 09/13/20 14:34 17:54 06:35 WBC 13.0 H RBC 3.69 L Hgb 8.5 L Hct 29.1 L MCV 78.9 L MCH 23.0 L MCHC 29.2 L RDW 15.4 Plt Count 425 H D MPV 9.4 Immature Gran % (Auto) 0.5 H Neut % (Auto) 91.6 H Lymph % (Auto) 3.6 L Davis % (Auto) 4.2 Eos % (Auto) 0.0 Baso % (Auto) 0.1 Lymph # (Auto) 0.5 L Davis # (Auto) 0.6 Eos # (Auto) 0.0 Baso # (Auto) 0.0 Abs Immat Gran (auto) 0.06 H Absolute Neuts (auto) 11.9 H Absolute Nucleated RBC 0.000 Nucleated RBC % (auto) 0.0 Smear Tech's Comments VERIFIED ABG pH 7.38 ABG pCO2 80 H* ABG pO2 78 L ABG HCO3 47 H ABG O2 Saturation 93.0 ABG Base Excess 19.8 VBG pH VBG pCO2 VBG pO2 VBG HCO3 VBG O2 Saturation VBG Base Excess Oxygen Given 4 L Sodium Potassium Chloride Carbon Dioxide Anion Gap BUN Creatinine Estim Creat Clear Calc Estimated GFR Random Glucose Lactic Acid Calcium Total Bilirubin Direct Bilirubin AST ALT Alkaline Phosphatase Troponin I High Sens 40.4 H B-Natriuretic Peptide Total Protein Albumin Lipase COVID-19 (REYES) COVID-19 Clin Com Blood Type Antibody Screen 09/13/20 09/14/20 09/14/20 06:35 06:02 06:02 WBC 12.7 H RBC 3.31 L Hgb 7.6 L Hct 26.0 L MCV 78.5 L MCH 23.0 L MCHC 29.2 L RDW 15.3 Plt Count 381 MPV 9.6 Immature Gran % (Auto) Neut % (Auto) Lymph % (Auto) Davis % (Auto) Eos % (Auto) Baso % (Auto) Lymph # (Auto) Davis # (Auto) Eos # (Auto) Baso # (Auto) Abs Immat Gran (auto) Absolute Neuts (auto) Absolute Nucleated RBC 0.000 Nucleated RBC % (auto) 0.0 Smear Tech's Comments ABG pH ABG pCO2 ABG pO2 ABG HCO3 ABG O2 Saturation ABG Base Excess VBG pH VBG pCO2 VBG pO2 VBG HCO3 VBG O2 Saturation VBG Base Excess Oxygen Given Sodium 139 140 Potassium 4.7 4.3 Chloride 97 98 Carbon Dioxide 36 H 34 H Anion Gap 11 L 12 BUN 20 H 25 H Creatinine 0.72 0.75 Estim Creat Clear Calc 90.1 86.5 Estimated GFR > 60 > 60 Random Glucose 129 H 115 Lactic Acid Calcium 8.3 L 8.1 L Total Bilirubin Direct Bilirubin AST ALT Alkaline Phosphatase Troponin I High Sens B-Natriuretic Peptide Total Protein Albumin Lipase COVID-19 (REYES) COVID-19 [employer] Blood Type Antibody Screen 09/14/20 09/17/20 09/17/20 10:40 00:05 00:05 WBC RBC Hgb Hct MCV MCH MCHC RDW Plt Count MPV Immature Gran % (Auto) Neut % (Auto) Lymph % (Auto) Davis % (Auto) Eos % (Auto) Baso % (Auto) Lymph # (Auto) Davis # (Auto) Eos # (Auto) Baso # (Auto) Abs Immat Gran (auto) Absolute Neuts (auto) Absolute Nucleated RBC Nucleated RBC % (auto) Smear Tech's Comments ABG pH ABG pCO2 ABG pO2 ABG HCO3 ABG O2 Saturation ABG Base Excess VBG pH 7.41 VBG pCO2 79 VBG pO2 44 VBG HCO3 50 VBG O2 Saturation 70.0 VBG Base Excess 23.1 Oxygen Given Sodium 136 Potassium 4.4 Chloride 90 L Carbon Dioxide 39 H Anion Gap 11 L BUN 33 H Creatinine 0.85 Estim Creat Clear Calc 76.3 Estimated GFR > 60 Random Glucose 132 H Lactic Acid Calcium 8.4 Total Bilirubin Direct Bilirubin AST ALT Alkaline Phosphatase Troponin I High Sens B-Natriuretic Peptide 92 Total Protein Albumin Lipase COVID-19 (REYES) COVID-19 [facility] Blood Type Antibody Screen 09/17/20 09/17/20 00:14 10:14 WBC RBC Hgb Hct MCV MCH MCHC RDW Plt Count MPV Immature Gran % (Auto) Neut % (Auto) Lymph % (Auto) Davis % (Auto) Eos % (Auto) Baso % (Auto) Lymph # (Auto) Davis # (Auto) Eos # (Auto) Baso # (Auto) Abs Immat Gran (auto) Absolute Neuts (auto) Absolute Nucleated RBC Nucleated RBC % (auto) Smear Tech's Comments ABG pH 7.45 ABG pCO2 73 H* ABG pO2 142 H ABG HCO3 52 H ABG O2 Saturation 99.0 ABG Base Excess 25.0 VBG pH VBG pCO2 VBG pO2 VBG HCO3 VBG O2 Saturation VBG Base Excess Oxygen Given 100% Sodium Potassium Chloride Carbon Dioxide Anion Gap BUN Creatinine Estim Creat Clear Calc Estimated GFR Random Glucose Lactic Acid Calcium Total Bilirubin Direct Bilirubin AST ALT Alkaline Phosphatase Troponin I High Sens B-Natriuretic Peptide Total Protein Albumin Lipase COVID-19 (REYES) COVID-19 Clin Com Blood Type A Positive Antibody Screen NEGATIVE Airway Mallampati Class: II (Full mustache and prabhakar; edentulous) TM Dist: >3cm Neck ROM: Limited Loose/Missing/Broken Teeth: Yes, Upper and Lower Heart: irreg irreg rhythm Lungs: distant clear BS Assessment and Plan Assessment Anesthesia Assessment: Anesthesia Plan Discussed and Chart Reviewed Final Anesthetic Review NPO: Yes ASA Class: IV Final Preanesthetic Review: Meds/Allgs Chart Reviewed, Consent Obtained/Reviewed and Anes Risks/Benef Reviewed Patient Risk: High Procedure Risk: Intermediate Anesthetic Plan Anesthetic Plan: GA Disposition: Standard PACU
--- NOTE | 2020-09-17 12:49 | P.PNIM_ITS ---
Subjective Subjective Date of Service: 09/17/20 Interval History: Seen in f/u for PNA, doing well, no specific complaint hypoxia is improving. Review of Systems Gen: no fever Resp: no sob, no cough CV: no chest, no LUONG, no leg edema GI: No n/v, no abd pain Neuro: No confusion Physical Exam Vital Signs: Vital Signs: Last Vital Signs Temp 99.2 F 09/17/20 12:33 Pulse 112 H 09/17/20 12:33 Resp 28 H 09/17/20 12:33 BP 123/70 09/17/20 12:33 Pulse Ox 88 L 09/17/20 12:33 Body Mass Index 23.6 Const: General: cooperative Orientation/consciousness: oriented to person and oriented to place Resp: Effort & Inspection: normal respiratory effort Auscultation: clear to auscultation bilaterally Cardio: Jugular venous distension: no JVD Rhythm: regular rhythm Heart sounds: S1 normal heart sound present and S2 normal heart sound present GI: Inspection: Yes normal to inspection Palpation (GI): Soft to palpation and nontender Skin: General skin exam: no rashes or lesions noted Neuro: General: oriented to person and oriented to place Psych: Affect: Labile affect present Objective Data Current Medications Generic Name Dose Route Start Last Admin Trade Name Freq PRN Reason Stop Dose Admin Acetaminophen 650 mg 09/12/20 17:26 Acetaminophen 325 Mg Tablet PO Q6H PRN Pain, Mild (Pain Scale 1-3) Acetaminophen 650 mg 09/12/20 17:26 Acetaminophen 325 Mg Tablet PO BID PRN Pain Albuterol/Ipratropium 3 ml 09/17/20 01:37 09/17/20 02:09 Albuterol/Iprat 2.5/0.5mg 3 Ml Ampul.Neb INHALE 3 ml RQ6H PRN Administration Shortness of Breath/Wheezing Bisacodyl 10 mg 09/12/20 17:26 Bisacodyl 10 Mg Supp.Rect [place] DAILY PRN Constipation Diltiazem HCl 30 mg 09/14/20 13:00 09/17/20 09:48 Diltiazem Hcl 30 Mg Tablet PO 30 mg QID JOSEP Administration Protocol Doxycycline Hyclate 100 mg 09/12/20 20:00 09/17/20 09:42 Doxycycline Hyclate 100 Mg Tablet PO Not Given Q12H [facility] Duloxetine HCl 30 mg 09/13/20 09:00 09/17/20 09:43 Duloxetine Hcl 30 Mg Capsule. PO Not Given DAILY JOSEP Ferrous Sulfate 324 mg 09/13/20 09:00 09/17/20 09:43 Ferrous Sulfate 324 Mg Tablet. PO Not Given DAILY JOSEP Cefepime HCl 1 gm/ Sodium 50 mls @ 100 mls/hr 09/12/20 20:00 09/17/20 11:52 Chloride IV 100 mls/hr Q8H JOSEP Administration Ipratropium [place] 0.5 mg 09/13/20 16:00 09/17/20 12:02 Ipratropium [place] 0.5 Mg/2.5 Ml Solution INHALE 0.5 mg RQ4H WHILE AWAKE JOSEP Administration Levalbuterol HCl 1.25 mg 09/13/20 16:00 09/17/20 12:02 Levalbuterol Hcl 1.25 Mg/0.5 Ml Vial.Neb INHALE 1.25 mg RQ4H WHILE AWAKE JOSEP Administration Methylprednisolone Sodium Succinate 20 mg 09/17/20 11:59 09/17/20 11:51 Methylprednisolone Sod Succ/Pf 40 Mg/Ml Vial IVPUSH 20 mg Q12H JOSEP Administration Ondansetron HCl 4 mg 09/12/20 17:26 Ondansetron Hcl 4 Mg/2 Ml Vial IVPUSH Q8H PRN Nausea and Vomiting Quetiapine Fumarate 25 mg 09/12/20 21:00 09/16/20 21:08 Quetiapine Fumarate 25 Mg Tablet PO 25 mg BEDTIME JOSEP Administration Risperidone 1 mg 09/12/20 21:00 09/16/20 21:09 Risperidone 1 Mg Tablet PO 1 mg BEDTIME JOSEP Administration Senna 8.6 mg 09/13/20 09:00 09/17/20 09:43 Sennosides 8.6 Mg Tablet PO Not Given DAILY JOSEP Sodium Chloride 3 ml 09/13/20 00:00 09/17/20 09:42 0.9 % Sodium Chloride Flush 3 Ml Syringe IVFLUSH 3 ml QSHIFT JOSEP Administration Sodium Chloride 3 ml 09/13/20 02:28 09/17/20 09:42 0.9 % Sodium Chloride Flush 3 Ml Syringe IVFLUSH Not Given QSHIFT JOSEP Torsemide 20 mg 09/13/20 09:00 09/17/20 09:43 Torsemide 20 Mg Tablet PO Not Given DAILY [facility] Protocol Labs CBC & Chem 7: 09/14/20 06:02 09/17/20 00:05 Microbiology Microbiology Results: Microbiology 09/12/20 10:19 Blood - Venous Blood Culture - Final No growth after 5 days. 09/12/20 10:02 Blood - Venous Blood Culture - Final No growth after 5 days. Assessment and Plan (1) Hypoxia: Status: Acute (2) Acute exacerbation of chronic obstructive pulmonary disease (COPD): Status: Acute (3) Hospital-acquired pneumonia: Status: Acute Assessment and Plan: 74-year-old man presenting from [facility] with pneumonia, acute on chronic respiratory failure secondary to pneumonia and COPD exacerbation. 1. Acute on chronic respiratory failure with hypoxia and hypercarbia due to copd exacerbation + HCAP + possible Lung mass titrate o2 to keep saturations 90; ABG on 09/14 was normal, no hypoxia at this time. Wean off O2 Will have bronchoscopy today, off Xarelto 2. HCAP Vancomcyin allergy. On Cefepime, change to PO Augmentin after bronch 3. COPD exacerbation updrats (xopenex inplace of albuterol due to tachycardia) and steriods 4. A. Flutter with RVR, no on rate control meds, rvr propably due to acute illness. Change to long acting cardizem CD 120 5. Lung Mass--To have Bronchoscopy as stated 6.Anemia--H/H was low on admission, recheck H/H 7. Schizophrenia continue baseline meds Full Code DVT pptx, Xarelto (but will be on hold until)
[2020-09-17 13:04] LABS: Hematocrit 28.9 % (42-52); Hemoglobin 8.6 g/dl (14.0-18.0); Mean Corpuscular HGB Conc 29.8 g/dl (31.0-36.0); Mean Corpuscular Hemoglobin 22.6 pg (27.0-33.0); Mean Corpuscular Volume 75.9 fL (80-98); Mean Platelet Volume 9.9 fL (9.4-12.4); Platelet Count 396 X10*3/uL (160-400); Red Blood Count 3.81 X10*6/uL (4.60-5.80); Red Cell Distribution Width 15.4 % (11.0-16.0); White Blood Count 12.5 X10*3/uL (4.8-10.8)
--- NOTE | 2020-09-17 13:16 | MHC.SHP ---
Pre-Procedural Eval Section B Chief Complaint: HCAP Allergies: Allergies Allergy/AdvReac Type Severity Reaction Status Date / Time ciprofloxacin Allergy Intermediate Unknown Verified 09/12/20 10:45 vancomycin Allergy Mild Unknown Verified 09/12/20 10:45 metronidazole Allergy Unknown Verified 09/12/20 10:45 mushroom Allergy Unknown Verified 09/12/20 10:45 Plan I have reviewed the history and physical and performed a pertinent physical examination on my patient. No changes have occurred unless specified.
--- NOTE | 2020-09-17 16:58 | PM.OP ---
Brief Operative Note Date of Service: 09/17/20 Pre-op diagnosis: pneumonia, lung mass Procedure: bronchosocopy Surgeon: Deon Kay MD Anesthesia: GETA Estimated blood loss (mL): 3 Pathology: other (RLL endobronchial bx; cyto brush GARETT, bilateral washings) Condition: stable
[2020-09-17] MEDS: QUEtiapine Fumarate 25 MG TABLET PO (22:10)
[2020-09-17] MEDS: risperiDONE 1 MG TABLET PO (22:11)
[2020-09-18] VITALS (12 sets, daily range): BP systolic 102–131; BP diastolic 56–73; PULSE 78–107; RESP 17–20; TEMP 36.3–37; O2SAT 93–99
[2020-09-18] MEDS: cefEPime HCl 1 GM in 0.9 % Sodium Chloride 50 ML IV (04:17)
[2020-09-18] MEDS: Ipratropium Bromide 0.5 MG/2.5 ML SOLUTION INHALE ×4 (07:17→19:45)
[2020-09-18] MEDS: 0.9 % Sodium Chloride Flush 3 ML SYRINGE IVFLUSH ×6 (08:40→20:41)
[2020-09-18] MEDS: Sennosides 8.6 MG TABLET PO (08:41)
[2020-09-18] MEDS: Ferrous Sulfate 324 MG TABLET.DR PO (08:41)
[2020-09-18] MEDS: DULoxetine HCl 30 MG CAPSULE.DR PO (08:41)
[2020-09-18] MEDS: dilTIAZem HCL 30 MG TABLET PO (08:41)
[2020-09-18] MEDS: Torsemide 20 MG TABLET PO (08:42)
--- NOTE | 2020-09-18 10:09 | P.PNIM_ITS ---
Subjective Subjective Date of Service: 09/18/20 Interval History: Seen in f/u for PNA, doing well, no specific complaint hypoxia continue to improve, succesful bronchoscopy 2/ Review of Systems Gen: no fever Resp: no sob, no cough CV: no chest, no LUONG, no leg edema GI: No n/v, no abd pain Neuro: No confusion Physical Exam Vital Signs: Vital Signs: Last Vital Signs Temp 97.9 F 09/18/20 07:30 Pulse 101 H 09/18/20 08:41 Resp 20 09/18/20 07:30 BP 125/67 09/18/20 08:41 Pulse Ox 99 09/18/20 07:30 Body Mass Index 23.6 Const: General: cooperative Orientation/consciousness: oriented to person and oriented to place Resp: Effort & Inspection: normal respiratory effort Auscultation: clear to auscultation bilaterally Cardio: Jugular venous distension: no JVD Rhythm: other (irregular) Heart sounds: S1 normal heart sound present and S2 normal heart sound present GI: Inspection: Yes normal to inspection Palpation (GI): Soft to palpation and nontender Skin: General skin exam: no rashes or lesions noted Neuro: General: oriented to person and oriented to place Psych: Affect: Labile affect present Objective Data Current Medications Generic Name Dose Route Start Last Admin Trade Name Freq PRN Reason Stop Dose Admin Acetaminophen 650 mg 09/12/20 17:26 Acetaminophen 325 Mg Tablet PO Q6H PRN Pain, Mild (Pain Scale 1-3) Acetaminophen 650 mg 09/12/20 17:26 Acetaminophen 325 Mg Tablet PO BID PRN Pain Albuterol/Ipratropium 3 ml 09/17/20 01:37 09/17/20 02:09 Albuterol/Iprat 2.5/0.5mg 3 Ml Ampul.Neb INHALE 3 ml RQ6H PRN Administration Shortness of Breath/Wheezing Bisacodyl 10 mg 09/12/20 17:26 Bisacodyl 10 Mg Supp.Rect [place] DAILY PRN Constipation Diltiazem HCl 30 mg 09/14/20 13:00 09/18/20 08:41 Diltiazem Hcl 30 Mg Tablet PO 30 mg QID JOSEP Administration Protocol Doxycycline Hyclate 100 mg 09/12/20 20:00 09/18/20 08:42 Doxycycline Hyclate 100 Mg Tablet PO 100 mg Q12H JOSEP Administration Duloxetine HCl 30 mg 09/13/20 09:00 09/18/20 08:41 Duloxetine Hcl 30 Mg Capsule. PO 30 mg DAILY JOSEP Administration Ferrous Sulfate 324 mg 09/13/20 09:00 09/18/20 08:41 Ferrous Sulfate 324 Mg Tablet. PO 324 mg DAILY JOSEP Administration Cefepime HCl 1 gm/ Sodium 50 mls @ 100 mls/hr 09/12/20 20:00 09/18/20 04:54 Chloride IV Infused Q8H JOSEP Infusion Ipratropium [place] 0.5 mg 09/13/20 16:00 09/18/20 07:17 Ipratropium [place] 0.5 Mg/2.5 Ml Solution INHALE 0.5 mg RQ4H WHILE AWAKE JOSEP Administration Levalbuterol HCl 1.25 mg 09/13/20 16:00 09/18/20 07:19 Levalbuterol Hcl 1.25 Mg/0.5 Ml Vial.Neb INHALE 1.25 mg RQ4H WHILE AWAKE JOSEP Administration Methylprednisolone Sodium Succinate 20 mg 09/17/20 11:59 09/17/20 22:54 Methylprednisolone Sod Succ/Pf 40 Mg/Ml Vial IVPUSH 20 mg Q12H JOSEP Administration Ondansetron HCl 4 mg 09/12/20 17:26 Ondansetron Hcl 4 Mg/2 Ml Vial IVPUSH Q8H PRN Nausea and Vomiting Quetiapine Fumarate 25 mg 09/12/20 21:00 09/17/20 22:10 Quetiapine Fumarate 25 Mg Tablet PO 25 mg BEDTIME JOSEP Administration Risperidone 1 mg 09/12/20 21:00 09/17/20 22:11 Risperidone 1 Mg Tablet PO 1 mg BEDTIME JOSEP Administration Rivaroxaban 20 mg 09/18/20 10:15 Rivaroxaban 20 Mg Tablet PO DAILY JOSEP Senna 8.6 mg 09/13/20 09:00 09/18/20 08:41 Sennosides 8.6 Mg Tablet PO 8.6 mg DAILY JOSEP Administration Sodium Chloride 3 ml 09/13/20 00:00 09/18/20 08:40 0.9 % Sodium Chloride Flush 3 Ml Syringe IVFLUSH 3 ml QSHIFT JOSEP Administration Sodium Chloride 3 ml 09/13/20 02:28 09/18/20 08:41 0.9 % Sodium Chloride Flush 3 Ml Syringe IVFLUSH 3 ml QSHIFT JOSEP Administration Torsemide 20 mg 09/13/20 09:00 09/18/20 08:42 Torsemide 20 Mg Tablet PO 20 mg DAILY JOSEP Administration Protocol Labs CBC & Chem 7: 09/17/20 Unknown 09/17/20 00:05 Microbiology Microbiology Results: Microbiology 09/17/20 13:44 Bronchial Washings Gram Stain - Final 09/17/20 13:44 Bronchial Washings Routine Culture - Preliminary No growth to date. 09/17/20 13:45 Bronch Rll Bronchial [place] Culture - Preliminary No growth. 09/17/20 13:45 Bronch Rll Gram Stain - Final 09/12/20 10:19 Blood - Venous Blood Culture - Final No growth after 5 days. 09/12/20 10:02 Blood - Venous Blood Culture - Final No growth after 5 days. Assessment and Plan (1) Hypoxia: Status: Acute (2) Acute exacerbation of chronic obstructive pulmonary disease (COPD): Status: Acute (3) Hospital-acquired pneumonia: Status: Acute Assessment and Plan: 74-year-old man presenting from [facility] with pneumonia, acute on chronic respiratory failure secondary to pneumonia and COPD exacerbation. 1. Acute on chronic respiratory failure with hypoxia and hypercarbia due to copd exacerbation + HCAP + possible Lung mass titrate o2 to keep saturations 90; ABG on 09/14 was normal, no hypoxia at this time. Wean off O2 2. HCAP Vancomcyin allergy. On Cefepime, PO odyx, change to PO Augmentin today 3. COPD exacerbation updrats (xopenex inplace of albuterol due to tachycardia) and solumedrol, change to PO prednisone 4. A. Flutter with RVR, no on rate control meds, rvr propably due to acute illness. Change to long acting cardizem CD 120. Xarelto for anticoaglation 5. Lung Mass--Bronchosocopy done on 09/17, result pending 6.Anemia--H/H was low on admission and stable, no sings of bleeding 7. Schizophrenia continue baseline meds Full Code DVT pptx, Xarelto
--- NOTE | 2020-09-18 10:36 | PM.PNPUL ---
Subjective Subjective Date of Service: 09/21/20 Principal diagnosis: PNEUMONIA, COPD excerbation Objective Data Labs CBC & Chem 7: 09/20/20 13:06 09/20/20 13:06 Labs: Laboratory Results - last 24 hr 09/17/20 09/17/20 10:14 Unknown WBC 12.5 H RBC 3.81 L Hgb 8.6 L Hct 28.9 L MCV 75.9 L MCH 22.6 L MCHC 29.8 L RDW 15.4 Plt Count 396 MPV 9.9 Absolute Nucleated RBC 0.000 Nucleated RBC % (auto) 0.0 Blood Type A Positive Antibody Screen NEGATIVE Microbiology Microbiology Results: Microbiology 09/17/20 13:44 Bronchial Washings Gram Stain - Final 09/17/20 13:44 Bronchial Washings Routine Culture - Preliminary No growth to date. 09/17/20 13:45 Bronch Rll Bronchial [place] Culture - Preliminary No growth. 09/17/20 13:45 Bronch Rll Gram Stain - Final 09/12/20 10:19 Blood - Venous Blood Culture - Final No growth after 5 days. 09/12/20 10:02 Blood - Venous Blood Culture - Final No growth after 5 days. Physical Exam Vital Signs: Vital Signs: Last Vital Signs Temp 97.9 F 09/18/20 07:30 Pulse 101 H 09/18/20 08:41 Resp 20 09/18/20 07:30 BP 125/67 09/18/20 08:41 Pulse Ox 99 09/18/20 07:30 Body Mass Index 23.6 Assessment and Plan Time Spent With Patient Time: Total time spent is greater than 50% in coordination of care (as documented) at patient's floor/unit and/or counseling patient:
[2020-09-18] MEDS: dilTIAZem HCL CD 120 MG CAP.ER.DEG PO (11:32)
[2020-09-18] MEDS: Rivaroxaban 20 MG TABLET PO (11:33)
--- NOTE | 2020-09-18 15:39 | HO.POSTANES ---
Post Anesthesia Evaluation Post Anesthesia Evaluation Vital Signs: Vital Signs Temp Pulse Resp BP Pulse Ox 09/18/20 15:11 80 09/18/20 11:37 97.9 F 94 20 131/62 98 09/18/20 11:32 78 122/64 09/18/20 11:21 86 09/18/20 08:41 101 H 125/67 09/18/20 07:30 97.9 F 101 H 20 125/67 99 09/18/20 07:20 84 09/18/20 03:53 97.7 F 107 H 20 102/73 98 Anesthesia: General Endotracheal-GETA Mental Status: Awake Pain Control: Satisfactory Nausea/Vomiting: None Hydration: Adequate Anesthesia-Related Issues: No Anes. Related Issues
[2020-09-18] MEDS: Acetaminophen 325 MG TABLET 650 MG PO (20:34)
[2020-09-18] MEDS: QUEtiapine Fumarate 25 MG TABLET PO (20:35)
[2020-09-18] MEDS: risperiDONE 1 MG TABLET PO (20:35)
[2020-09-19] VITALS (12 sets, daily range): BP systolic 95–125; BP diastolic 51–69; PULSE 82–102; RESP 18–20; TEMP 36.3–36.8; O2SAT 90–94
--- NOTE | 2020-09-19 01:22 | PM.EVENT ---
Event Note Date of Service: 09/19/20 Event Note: NSVT: Patient had frequent SVTs on telemetry. Patient asymptomatic. Checking electrolytes to keep Mag above 2 and potassium above 4 Echocardiogram Cardiology consult
--- NOTE | 2020-09-19 02:12 | PC.NURSE ---
Patient having frequent beats of vtach on tele. Hospitalist notified via [place] connect. Stat mag ordered.
[2020-09-19 02:29] LABS: Magnesium 2.2 mg/dL (1.6-2.6)
[2020-09-19] MEDS: Ipratropium Bromide 0.5 MG/2.5 ML SOLUTION INHALE ×4 (07:48→19:47)
[2020-09-19] MEDS: 0.9 % Sodium Chloride Flush 3 ML SYRINGE IVFLUSH ×6 (08:46→23:48)
[2020-09-19] MEDS: Rivaroxaban 20 MG TABLET PO (08:46)
[2020-09-19] MEDS: Ferrous Sulfate 324 MG TABLET.DR PO (08:46)
[2020-09-19] MEDS: Sennosides 8.6 MG TABLET PO (08:46)
[2020-09-19] MEDS: DULoxetine HCl 30 MG CAPSULE.DR PO (08:46)
[2020-09-19] MEDS: Torsemide 20 MG TABLET PO (08:47)
[2020-09-19] MEDS: dilTIAZem HCL CD 120 MG CAP.ER.DEG PO (08:47)
--- NOTE | 2020-09-19 11:02 | P.PNIM_ITS ---
Subjective Subjective Date of Service: 09/19/20 Interval History: Seen in f/u for PNA, doing well, no specific complaint hypoxia continue to improve, succesful bronchoscopy 2/5. Overnight noted to have frequent SVTs Review of Systems Gen: no fever Resp: no sob, no cough CV: no chest, no LUONG, no leg edema GI: No n/v, no abd pain Neuro: No confusion Review of Systems: Yes all other systems are reviewed and are negative Physical Exam Vital Signs: Vital Signs: Last Vital Signs Temp 98.0 F 09/19/20 07:12 Pulse 82 09/19/20 08:47 Resp 19 09/19/20 07:12 BP 104/58 L 09/19/20 08:47 Pulse Ox 92 09/19/20 07:12 Body Mass Index 23.6 Const: General: cooperative Orientation/consciousness: oriented to person and oriented to place Resp: Effort & Inspection: normal respiratory effort Auscultation: clear to auscultation bilaterally Cardio: Jugular venous distension: no JVD Rhythm: other (irregular) Heart sounds: S1 normal heart sound present and S2 normal heart sound present GI: Inspection: Yes normal to inspection Palpation (GI): Soft to palpation and nontender Skin: General skin exam: no rashes or lesions noted Neuro: General: oriented to person and oriented to place Psych: Affect: Labile affect present Objective Data Current Medications Generic Name Dose Route Start Last Admin Trade Name Freq PRN Reason Stop Dose Admin Acetaminophen 650 mg 09/12/20 17:26 Acetaminophen 325 Mg Tablet PO Q6H PRN Pain, Mild (Pain Scale 1-3) Acetaminophen 650 mg 09/12/20 17:26 09/18/20 20:34 Acetaminophen 325 Mg Tablet PO 650 mg BID PRN Administration Pain Albuterol/Ipratropium 3 ml 09/17/20 01:37 09/17/20 02:09 Albuterol/Iprat 2.5/0.5mg 3 Ml Ampul.Neb INHALE 3 ml RQ6H PRN Administration Shortness of Breath/Wheezing Bisacodyl 10 mg 09/12/20 17:26 Bisacodyl 10 Mg Supp.Rect [place] DAILY PRN Constipation Diltiazem HCl 120 mg 09/18/20 10:15 09/19/20 08:47 Diltiazem Hcl Cd 120 Mg Cap.Er.Deg PO 120 mg DAILY JOSEP Administration Protocol Doxycycline Hyclate 100 mg 09/12/20 20:00 09/19/20 08:46 Doxycycline Hyclate 100 Mg Tablet PO 100 mg Q12H JOSEP Administration Duloxetine HCl 30 mg 09/13/20 09:00 09/19/20 08:46 Duloxetine Hcl 30 Mg Capsule. PO 30 mg DAILY JOSEP Administration Ferrous Sulfate 324 mg 09/13/20 09:00 09/19/20 08:46 Ferrous Sulfate 324 Mg Tablet. PO 324 mg DAILY JOSEP Administration Ipratropium [place] 0.5 mg 09/13/20 16:00 09/19/20 07:48 Ipratropium [place] 0.5 Mg/2.5 Ml Solution INHALE 0.5 mg RQ4H WHILE AWAKE JOSEP Administration Levalbuterol HCl 1.25 mg 09/13/20 16:00 09/19/20 07:49 Levalbuterol Hcl 1.25 Mg/0.5 Ml Vial.Neb INHALE 1.25 mg RQ4H WHILE AWAKE JOSEP Administration Ondansetron HCl 4 mg 09/12/20 17:26 Ondansetron Hcl 4 Mg/2 Ml Vial IVPUSH Q8H PRN Nausea and Vomiting Quetiapine Fumarate 25 mg 09/12/20 21:00 09/18/20 20:35 Quetiapine Fumarate 25 Mg Tablet PO 25 mg BEDTIME JOSEP Administration Risperidone 1 mg 09/12/20 21:00 09/18/20 20:35 Risperidone 1 Mg Tablet PO 1 mg BEDTIME JOSEP Administration Rivaroxaban 20 mg 09/18/20 10:15 09/19/20 08:46 Rivaroxaban 20 Mg Tablet PO 20 mg DAILY JOSEP Administration Senna 8.6 mg 09/13/20 09:00 09/19/20 08:46 Sennosides 8.6 Mg Tablet PO 8.6 mg DAILY JOSEP Administration Sodium Chloride 3 ml 09/13/20 00:00 09/19/20 08:46 0.9 % Sodium Chloride Flush 3 Ml Syringe IVFLUSH 3 ml QSHIFT JOSEP Administration Sodium Chloride 3 ml 09/13/20 02:28 09/19/20 08:46 0.9 % Sodium Chloride Flush 3 Ml Syringe IVFLUSH 3 ml QSHIFT JOSEP Administration Torsemide 20 mg 09/13/20 09:00 09/19/20 08:47 Torsemide 20 Mg Tablet PO 20 mg DAILY JOSEP Administration Protocol Labs CBC & Chem 7: 09/17/20 Unknown 09/17/20 00:05 Microbiology Microbiology Results: Microbiology 09/17/20 13:45 Bronch Rll Bronchial [place] Culture - Final No growth. 09/17/20 13:45 Bronch Rll Gram Stain - Final 09/17/20 13:44 Bronchial Washings Gram Stain - Final 09/17/20 13:44 Bronchial Washings Routine Culture - Final No growth after 2 days 09/12/20 10:19 Blood - Venous Blood Culture - Final No growth after 5 days. 09/12/20 10:02 Blood - Venous Blood Culture - Final No growth after 5 days. Assessment and Plan (1) Hypoxia: Status: Acute (2) Acute exacerbation of chronic obstructive pulmonary disease (COPD): Status: Acute (3) Hospital-acquired pneumonia: Status: Acute Assessment and Plan: 74-year-old man presenting from [facility] with pneumonia, acute on chronic respiratory failure secondary to pneumonia and COPD exacerbation. 1. Acute on chronic respiratory failure with hypoxia and hypercarbia due to copd exacerbation + HCAP + possible Lung mass titrate o2 to keep saturations 90; ABG on 09/14 was normal, no hypoxia at this time. Wean off O2 2. HCAP Vancomcyin allergy. Cefepimine DCd, continue Oral doxy 3. COPD exacerbation updrats (xopenex inplace of albuterol due to tachycardia) and solumedrol, change to PO prednisone and nava over 2 weeks 4. A. Flutter with RVR, no on rate control meds, rvr propably due to acute illness. Change to long acting cardizem CD 120. Xarelto for anticoaglation -SVTs-normal mag, will get cardiology 5. Lung Mass--Bronchosocopy done on 09/17, result pending 6.Anemia--H/H was low on admission and stable, no sings of bleeding 7. Schizophrenia continue baseline meds Full Code DVT pptx, Xarelto
[2020-09-19] MEDS: Amoxicillin/Potassium Clav 500 MG TABLET PO ×2 (11:50→21:36)
[2020-09-19] MEDS: predniSONE 20 MG TABLET 40 MG PO (11:51)
--- NOTE | 2020-09-19 12:06 | P.CONCA_ITS ---
History of Present Illness History of Present Illness Date of Service: 09/19/20 Consult reason: other (NSVT) Chief complaint: HCAP Narrative: This is a cardiology consultation regarding an SVT and atrial fibrillation. [facility]. Patient himself is not a good historian. It seems that he has a history of schizophrenia. CT chest was performed and that has shown a large mass in the left upper lobe. From the cardiac standpoint he seems to have a history of atrial flutter by H&P. He is on Xarelto for the same. I do not see any rate control meds listed in his home regimen. Patient is not able to give much of information. He is not aware of any previous cardiac issues. Apparently in telemetry NSVT was noted and hence we have been asked to see him. Review of Systems Review of Systems: Yes all other systems are reviewed and are negative Cardiovascular: Cardiovascular: Reports as per HPI, Reports no additional car diovascular complaints, Denies acrocyanosis, Denies cool extremities, Denies painful fingertips, Denies chest pain, Denies chest pain at rest, Denies diapho resis, Denies syncope, Denies irregular heart rhythm, Denies claudication, Denies leg edema, Denies lightheadedness, Denies palpitations and Denies dyspnea Respiratory: Respiratory: Denies dyspnea Neurologic: Denies syncope Endocrine: Endocrine: Denies palpitations [facility] Past Medical History Medical History COPD (chronic obstructive pulmonary disease) Low back pain Mass of upper lobe of left lung Mass of upper lobe of left lung Other iron deficiency anemias Respiratory failure with hypoxia and hypercapnia Schizoaffective disorder Typical atrial flutter Social History Social History Household Members: Other Household Members Other:: lives in SNF Housing: Senior Living Do you presently have visiting nurse or other home services: No Unable to assess alcohol history related to: Unable to respond Alcohol intake: never Smoking Status: Current every day smoker Tobacco Type: Cigarette Packs Per Day: 1 Cigarettes Per Day: 4 Smoked in Last 30 Days: No Patient Interested in Nicotine Replacement: No Use of substances other than those prescribed or required for medical reasons: No Currently Displaying Signs/Symptoms of Drug Intoxication Withdrawal: No Have you been hit, kicked, punched, or otherwise hurt by someone within the past year? If so, by whom?: No Do you feel safe in your current relationship?: No Current Relationship Is there a partner from a previous relationship who is making you feel unsafe now?: No Are you made to feel afraid or neglected: No Advance Directives: No Advance Directives Information Provided: No Do you have thoughts of harming others: None Do you have a plan to hurt others: No Plan Recently lost weight without trying: Unsure service: Yes Current occupational status: disabled Meds Allergies Allergy/AdvReac Type Severity Reaction Status Date / Time ciprofloxacin Allergy Intermediate Unknown Verified 09/12/20 10:45 vancomycin Allergy Mild Unknown Verified 09/12/20 10:45 metronidazole Allergy Unknown Verified 09/12/20 10:45 mushroom Allergy Unknown Verified 09/12/20 10:45 Home Medications Medication Instructions Recorded Confirmed Type acetaminophen 325 mg capsule 650 mg PO BID PRN 08/16/20 09/12/20 History albuterol sulfate 90 mcg/actuation 2 puff INHALATION Q6H PRN 08/16/20 09/12/20 History aerosol inhaler bisacodyl 10 mg rectal suppository 10 mg [place] DAILY PRN 08/16/20 09/12/20 History budesonide-formoterol HFA 160 2 puff INHALATION BID 08/16/20 09/12/20 History mcg-4.5 mcg/actuation aerosol inhaler duloxetine 30 mg capsule,delayed 30 mg PO DAILY 08/16/20 09/12/20 History release ferrous sulfate 325 mg (65 mg 325 mg PO DAILY 08/16/20 09/12/20 History iron) tablet prednisone 10 mg tablet 10 mg PO DAILY 08/16/20 09/12/20 History quetiapine 25 mg tablet 25 mg PO BEDTIME 08/16/20 09/12/20 History risperidone 1 mg tablet 1 mg PO BEDTIME 08/16/20 09/12/20 History rivaroxaban 20 mg tablet 20 mg PO DAILY 08/16/20 09/12/20 History sennosides 8.6 mg capsule 8.6 mg PO DAILY 08/16/20 09/12/20 History tiotropium bromide 18 mcg capsule 1 cap INHALATION DAILY 08/16/20 09/12/20 History with inhalation device torsemide 20 mg tablet 20 mg PO DAILY 08/16/20 09/12/20 History Physical Exam Vital Signs: Vital Signs: Last Vital Signs Temp 97.3 F 09/19/20 11:28 Pulse 92 09/19/20 11:35 Resp 20 09/19/20 11:28 BP 123/69 09/19/20 11:28 Pulse Ox 92 09/19/20 12:02 Body Mass Index 23.6 Const: General: comfortable and no acute distress HENMT: Other: Unremarkable Neck: Neck: Yes normal visual inspection Chest: Chest palpation & inspection: normal inspection of the chest Resp: Other: Coarse breath sounds bilateral with scattered rhonchi Cardio: Other: Difficult to examine as he is constantly moaning during the exam. GI: Palpation (GI): Soft to palpation Back/Spine/Pelvis: Other: unremarkable Skin: General skin exam: no rashes or lesions noted Extrem: General: Yes no clubbing, cyanosis or edema Psych: Mental Status: mental status grossly normal Results Labs and Meds Result diagrams: 09/17/20 Unknown 09/17/20 00:05 Lab results: Laboratory Results - last 24 hr 09/19/20 01:37 Magnesium 2.2 ECG Attestation: I personally reviewed and interpreted this ECG as follows: Interpretation: Admission EKG with atrial fibrillation at 109/Min with leftward axis. Telemetry with evidence of very brief NSVT-7 beats. Assessment and Plan (1) Persistent atrial fibrillation: Status: Acute (2) NSVT (nonsustained ventricular tachycardia): Status: Acute (3) Respiratory failure with hypoxia and hypercapnia: Qualifiers: Chronicity: unspecified Qualified Code(s): J96.91 - Respiratory failure, unspecified with hypoxia; J96.92 - Respiratory failure, unspecified with hypercapnia Status: Acute (4) Mass of upper lobe of left lung: Status: Acute Agree with Cardizem. He is already on Xarelto as well. The NSVT itself is very brief. He has had a chest CT scan that shows cardiomegaly; aortic valve and mild to moderate coronary calcifications. We can start with an echocardiogram for LV function assessment. He does not seem to be a good candidate for ischemia workup. We will follow with you.
--- NOTE | 2020-09-19 14:56 | MHC.CM.PN ---
NURSE OPTOMETRIC TECH NOTE ELECTRONIC MEDICAL RECORD REVIEWED ALoNG WITH CASE DISCUSSED WITH STAFF NURSE ON TELEMETRY 2/6PM-2/7 AM PER CARDIAC CONSULT NOTE PATIENT WITH PERSISTENT A-FIB AND (brief-NSVT) PATIENT IS ON XARELTO HE RECOMENDED STARTING ON CARDIZEM , ECHOCARDIOGRAM TO CHECK FOR LV FUNCTION. S/P BRONCHOSCOPY WITH BIOPSY AND WASHINGS SENT,MASS OF UPPER LEFT LUNG DISCHARGE PLAN TO RETURN BACK TO [facility] WHERE HE RESIDES (REPORTED BY KEEGAN BRUNO [employer] WORKER HE HAS NO NEXT OF KIN AND NO HEALTH CARE PROXY
[2020-09-19] MEDS: risperiDONE 1 MG TABLET PO (21:36)
[2020-09-19] MEDS: QUEtiapine Fumarate 25 MG TABLET PO (21:36)
[2020-09-20] VITALS (14 sets, daily range): BP systolic 93–132; BP diastolic 51–77; PULSE 88–102; RESP 18–23; TEMP 36.6–37.4; O2SAT 86–95
[2020-09-20] MEDS: Albuterol/Iprat 2.5/0.5MG 3 ML AMPUL.NEB INHALE (05:06)
--- NOTE | 2020-09-20 07:30 | CA_ITS ---
Transthoracic Echocardiogram Patient (Last, First, Middle): Phil Sheikh, Gender: Male Date of : 1945 Age: 74 Procedure Date: 09/20/2020 Procedure Type: Transthoracic Echocardiogram [place] [facility] [place]: 177.8 cm Weight: 74.84 kg BSA: 1.92 m2 Heart Rate: bpm BP: 111 / 57 mmHg Shotblaster: Referring MD: Des Shea MD Symptoms: Atrial fibrillation/NSVT Study Quality: Fair ECG Rhythm: Atrial Fibrillation Conclusions: - The left ventricular systolic function is low normal. The visually estimated ejection fraction is between 50-55%. - The basal inferior segment is hypokinetic. - The left atrium is severely dilated. - There is moderate aortic valve stenosis. - Mild pulmonary hypertension is present. Findings Left Ventricle Normal left ventricular cavity size. There is mildly increased left ventricular wall thickness. The left ventricular systolic function is low normal. The visually estimated ejection fraction is between 50-55%. Diastolic function is indeterminate on the basis of available data. Due to atrial fibrillation, difficult to assess LVEF. Wall Motion Rest Echo Findings The basal inferior segment is hypokinetic. Right Ventricle Mildly increased right ventricular cavity size. There is normal right ventricular systolic function. Atria The left atrium is severely dilated. The right atrium is moderately dilated. Aortic Valve The aortic valve was not well visualized. There is moderate aortic valve stenosis. The peak aortic velocity is 3.43 m/s with a calculated peak gradient of 47 mmHg. The mean gradient is 30 mmHg. The aortic valve area is 0.93 cm2. Mitral Valve The mitral valve appears normal. There is trace mitral valve regurgitation. There is no mitral valve stenosis. Pulmonic Valve The pulmonic valve was not well visualized. Tricuspid Valve There is mild tricuspid valve regurgitation. The right ventricular systolic pressure is 44 mmHg. Mild pulmonary hypertension is present. Great Vessels The aorta was not well visualized. Venous The inferior vena cava is normal in size and collapses greater than 50% with inspiration. Pericardium/Pleural There is no evidence of pericardial effusion. Prior Study Comparison No prior study available for comparison. Measurements 2D Linear Measurements Ao Root: 3.30 2.1-3.5 cm LVOT Diam: 2.30 3.0+(-)1.3 cm 2D Systolic Function EF 4C: 37.40 >55% EF 2C: 53.20 >55% EF BiP: 44.30 >55% Mitral Valve MV Pk E: 0.89 MV Decel Time: 253.00 E'Lateral: 19.70 E'Medial: 12.50 E/E' Med: 7.10 E/E' Lat: 4.50 PHT: 74.00 MVA PHT: 2.97 Decel Sawyer: 3.52 Aortic Valve AoV Pk Axel: 3.43 AoV Mn Axel: 2.54 AoV VTI: 0.67 AoV Pk Grad: 47.00 Aov Mn Grad: 30.00 DARIO Cont.VTI: 0.93 LVOT LVOT Pk Axel: 0.82 LVOT Mn Axel: 0.54 LVOT VTI: 0.15 LVOT Pk Grad: 3.00 LVOT Mn Grad: 1.00 LVOT Diam: 2.30 LVOT Area: 4.15 Diastolic Function MV Pk E: 0.89 E'Medial: 12.50 E/E' Med: 7.10 E' Laterial: 19.70 E/E' Lat: 4.50 Tricuspid Valve TR Pk Axel: 3.02 TR Pk Grad: 36.00 RA Press: 8.00 RVSP: 44.00 Great Vessels Aorta Ao Root-2D: 3.30 2.0-3.7 cm Updated in Other Vendor System with Status of Final Des Shea MD electronically signed on 09/20/2020 5:13:30 PM with status of Final
[2020-09-20] MEDS: Ipratropium Bromide 0.5 MG/2.5 ML SOLUTION INHALE ×3 (08:09→15:52)
[2020-09-20] MEDS: 0.9 % Sodium Chloride Flush 3 ML SYRINGE IVFLUSH ×5 (08:25→23:59)
[2020-09-20 08:51] LABS: Pt Ventilation O2% 50%
[2020-09-20 08:54] LABS: Base Excess ABG 29.7; HCO3 ABG 55 mmol/L (22-26); PO2 ABG 55 mmHg (83-108); pH ABG 7.55 (7.35-7.45)
[2020-09-20 09:00] LABS: ABG PCO2 62 mmHg (32-45)
--- NOTE | 2020-09-20 10:02 | PM.PNPUL ---
Subjective Subjective Date of Service: 09/20/20 Principal diagnosis: PNEUMONIA, COPD excerbation Interval history: Patient was seen on exam. Appears to be more somnolent this morning. Currently on a Ventimask. He is not following any commands for coughing. He is more diminished on the right side suggesting that he likely has some degree of mucus plugging. Still waiting for the results of the bronchoscopy. He did have some cytologic brushings and washings are still pending. In view of the fact that he had been on Xarelto and his heart rate had climbed up to 169 during the procedure opted on not perform the transbronchial biopsies. Objective Data Labs CBC & Chem 7: 09/17/20 Unknown 09/17/20 00:05 Labs: Laboratory Results - last 24 hr 09/20/20 08:45 ABG pH 7.55 H ABG pCO2 62 H* ABG pO2 55 L ABG HCO3 55 H ABG O2 Saturation 85.0 ABG Base Excess 29.7 Oxygen Given 50% Microbiology Microbiology Results: Microbiology 09/17/20 13:45 Bronch Rll Bronchial [place] Culture - Final No growth. 09/17/20 13:45 Bronch Rll Gram Stain - Final 09/17/20 13:44 Bronchial Washings Gram Stain - Final 09/17/20 13:44 Bronchial Washings Routine Culture - Final No growth after 2 days 09/12/20 10:19 Blood - Venous Blood Culture - Final No growth after 5 days. 09/12/20 10:02 Blood - Venous Blood Culture - Final No growth after 5 days. Review of Systems Review of Systems Yes Unobtainable due to mental status Physical Exam Vital Signs: Vital Signs: Last Vital Signs Temp 97.8 F 09/20/20 07:20 Pulse 99 09/20/20 08:09 Resp 23 H 09/20/20 07:20 BP 132/60 09/20/20 07:20 Pulse Ox 89 L 09/20/20 08:48 Body Mass Index 23.6 Const: General: ill appearing and lethargic Orientation/consciousness: lethargic HENMT: General nose exam: Abnormal external nose present and Nasal discharge present Eyes: Pupils: Equal, round and reactive pupils present Neck: Neck: Yes normal visual inspection, Yes full ROM and Yes no lymphadenopathy Chest: Chest palpation & inspection: normal inspection of the chest Resp: Auscultation: diminished lung sounds Cardio: Rate: regular rate Rhythm: regular rhythm Heart sounds: S1 normal heart sound present and S2 normal heart sound present GI: Palpation (GI): Soft to palpation and nontender Auscultation: normal bowel sounds Skin: General skin exam: rashes and/or lesions noted Neuro: Cranial nerves: Yes Equal, round and reactive pupils present Assessment and Plan Assessment and plan (1) Respiratory failure with hypoxia and hypercapnia: Status: Acute (2) Mass of upper lobe of left lung: Status: Acute (3) Acute exacerbation of chronic obstructive pulmonary disease (COPD): Status: Acute Assessment and Plan: Continue oxygen supplementation to maintain a pulse ox above 90% ABG will be reasonable if his mentation is no better Awaiting or cytology and microbiology results Time Spent With Patient Time: Total time spent is greater than 50% in coordination of care (as documented) at patient's floor/unit and/or counseling patient: Time with patient: 15 - 24 minutes
--- NOTE | 2020-09-20 10:14 | PC.NURSE ---
0830- Patient 86% on 6Liters. Lungs diminished throughout. Respiratory at bedside to evaluate patient. Placed on 55% venti mask. Patient drowsy but arousable. MD at bedside to evaluate patient. STAT ABGS, and repeat chest x ray ordered.
--- NOTE | 2020-09-20 10:28 | P.PNCA_ITS ---
Subjective Subjective Date of Service: 09/20/20 Principal diagnosis: PNEUMONIA, COPD excerbation Interval history: Patient is lethargic and not able to answer much questions. Review of Systems Review of Systems Yes Unobtainable due to mental status Physical Exam Vital Signs: Last Vital Signs Temp 97.8 F 09/20/20 07:20 Pulse 99 09/20/20 08:09 Resp 23 H 09/20/20 07:20 BP 132/60 09/20/20 07:20 Pulse Ox 89 L 09/20/20 08:48 Body Mass Index 23.6 Const Other: Difficult to examine as he is constantly moaning during the exam. General: comfortable and no acute distress HENMT Other: Unremarkable Neck Neck: Yes normal visual inspection Chest Chest palpation & inspection: normal inspection of the chest Resp Other: Coarse breath sounds bilateral with scattered rhonchi Cardio Other: Difficult to examine as he is constantly moaning during the exam. Heart sounds: S1 normal heart sound present, S2 normal heart sound present and Murmur heart sound present systolic early and at the right sternal border GI Palpation (GI): Soft to palpation Back/Spine/Pelvis Other: unremarkable Skin General skin exam: no rashes or lesions noted Extrem General: Yes no clubbing, cyanosis or edema Psych Mental Status: mental status grossly normal Results Labs and Meds Result diagrams: 09/17/20 Unknown 09/17/20 00:05 Lab results: Laboratory Results - last 24 hr 09/20/20 08:45 ABG pH 7.55 H ABG pCO2 62 H* ABG pO2 55 L ABG HCO3 55 H ABG O2 Saturation 85.0 ABG Base Excess 29.7 Oxygen Given 50% ECG Attestation: I personally reviewed and interpreted this ECG as follows: Interpretation: Telemetry with atrial fibrillation about 100/Min with PVCs. Progress Note: A&P Assessment and plan (1) Persistent atrial fibrillation: Status: Acute (2) NSVT (nonsustained ventricular tachycardia): Status: Acute (3) Respiratory failure with hypoxia and hypercapnia: Status: Acute (4) Mass of upper lobe of left lung: Status: Acute Assessment and Plan: Agree with Cardizem. He is already on Xarelto as well. The NSVT itself is very brief. He has had a chest CT scan that shows cardiomegaly; aortic valve and mild to moderate coronary calcifications. We can start with an echocardiogram f or LV function assessment. He does not seem to be a good candidate for ischemia workup. We will follow with you. Fall Risk Details Current Medications: Current Medications Generic Name Dose Route Start Last Admin Trade Name Freq PRN Reason Stop Dose Admin Acetaminophen 650 mg 09/12/20 17:26 Acetaminophen 325 Mg Tablet PO Q6H PRN Pain, Mild (Pain Scale 1-3) Acetaminophen 650 mg 09/12/20 17:26 09/18/20 20:34 Acetaminophen 325 Mg Tablet PO 650 mg BID PRN Administration Pain Albuterol/Ipratropium 3 ml 09/17/20 01:37 09/20/20 05:06 Albuterol/Iprat 2.5/0.5mg 3 Ml Ampul.Neb INHALE 3 ml RQ6H PRN Administration Shortness of Breath/Wheezing Amoxicillin/Clavulanate Potassium 500 mg 09/19/20 11:15 09/19/20 21:36 Amoxicillin/Potassium Clav 500 Mg Tablet PO 500 mg Q12H JOSEP Administration Bisacodyl 10 mg 09/12/20 17:26 Bisacodyl 10 Mg Supp.Rect [place] DAILY PRN Constipation Diltiazem HCl 120 mg 09/18/20 10:15 09/19/20 08:47 Diltiazem Hcl Cd 120 Mg Cap.Er.Deg PO 120 mg DAILY JOSEP Administration Protocol Duloxetine HCl 30 mg 09/13/20 09:00 09/19/20 08:46 Duloxetine Hcl 30 Mg Capsule. PO 30 mg DAILY JOSEP Administration Ferrous Sulfate 324 mg 09/13/20 09:00 09/19/20 08:46 Ferrous Sulfate 324 Mg Tablet. PO 324 mg DAILY JOSEP Administration Ipratropium [place] 0.5 mg 09/13/20 16:00 09/20/20 08:09 Ipratropium [place] 0.5 Mg/2.5 Ml Solution INHALE 0.5 mg RQ4H WHILE AWAKE JOSEP Administration Levalbuterol HCl 1.25 mg 09/13/20 16:00 09/20/20 08:09 Levalbuterol Hcl 1.25 Mg/0.5 Ml Vial.Neb INHALE 1.25 mg RQ4H WHILE AWAKE JOSEP Administration Ondansetron HCl 4 mg 09/12/20 17:26 Ondansetron Hcl 4 Mg/2 Ml Vial IVPUSH Q8H PRN Nausea and Vomiting Prednisone 40 mg 09/19/20 11:10 09/19/20 11:51 Prednisone 20 Mg Tablet PO 40 mg DAILY JOSEP Administration Quetiapine Fumarate 25 mg 09/12/20 21:00 09/19/20 21:36 Quetiapine Fumarate 25 Mg Tablet PO 25 mg BEDTIME JOSEP Administration Risperidone 1 mg 09/12/20 21:00 09/19/20 21:36 Risperidone 1 Mg Tablet PO 1 mg BEDTIME JOSEP Administration Rivaroxaban 20 mg 09/18/20 10:15 09/19/20 08:46 Rivaroxaban 20 Mg Tablet PO 20 mg DAILY JOSEP Administration Senna 8.6 mg 09/13/20 09:00 09/19/20 08:46 Sennosides 8.6 Mg Tablet PO 8.6 mg DAILY JOSEP Administration Sodium Chloride 3 ml 09/13/20 00:00 09/20/20 08:25 0.9 % Sodium Chloride Flush 3 Ml Syringe IVFLUSH 3 ml QSHIFT JOSEP Administration Sodium Chloride 3 ml 09/13/20 02:28 09/20/20 08:25 0.9 % Sodium Chloride Flush 3 Ml Syringe IVFLUSH 3 ml QSHIFT JOSEP Administration Torsemide 20 mg 09/13/20 09:00 09/19/20 08:47 Torsemide 20 Mg Tablet PO 20 mg DAILY JOSEP Administration Protocol Time Spent With Patient Time: Total time spent is greater than 50% in coordination of care (as documented) at patient's floor/unit and/or counseling patient: Time with patient: less than 15 minutes
--- NOTE | 2020-09-20 11:42 | OP_ITS ---
SURGEON: Deon Kay MD PREOPERATIVE DIAGNOSIS: POSTOPERATIVE DIAGNOSIS: PROCEDURE PERFORMED: ESTIMATED BLOOD LOSS: COMPLICATIONS: ANESTHESIA: General endotracheal anesthesia provided. ASSISTANTS: SPECIMENS: ASA CLASSIFICATION: 4. PREOPERATIVE DIAGNOSES: Pneumonia and lung mass. POSTOPERATIVE DIAGNOSES: Pneumonia and lung mass along with small right lower lobe pulmonary polypoid lesion. DESCRIPTION OF PROCEDURE: After the patient is adequately sedated and intubated, the flexible digital bronchoscope was inserted over the ET tube to the level of the main gordon. The patient did have purulent secretions bilaterally, mainly in the central airways causing about 50% obstruction bilaterally, left more than right. The bronchoscope was navigated to the entire tracheobronchial tree, examined up to the subsegmental level. There was evidence of chronic inflammation in addition to bronchiectatic airways, likely from chronic airway disease. The patient also had a small right lower lobe polypoid lesion, very small. Please refer to the pictures. No other evidence of any endobronchial disease noted. The bronchoscope was navigated to the right lower lobe where microscopic brush was introduced for culture. Next, bronchoscope navigated to the left upper lobe, where a cytologic brush was introduced to the left upper lobe, and specimens sent to [facility] for cell block. The bronchoscope was navigated to the right lower lobe, with forceps endobronchial biopsies were collected of the polypoid lesion that was ultimately removed and sent for pathology. It was preserved in formalin. Next, bronchial washings were collected throughout the airways up to the subsegmental level. No other evidence of any endobronchial lesions or masses noted except for what was noted above. The patient did have evidence of chronic airway disease. Mucus pluggings were removed and therapeutic cleaning was provided. The patient's aeration and oxygenation improved after the procedure. The bronchoscope was then removed. No evidence of any bleeding at the end of the procedure. Iced saline was used with good hemostasis. The total endoscopic time approximately 15 minutes. Vital signs were, initially tachycardiac but then stabilized throughout the procedure. IMPRESSION: 1. Successful cytologic microbrush to the left upper lobe and right lower lobe respectively. 2. Endobronchial biopsies of the right lower lobe polypoid lesion. 3. Bronchial washings bilaterally. SAP TRAINER: None. Deon Kay MD MR/MODL / [id number]
[2020-09-20] MEDS: dilTIAZem HCL CD 120 MG CAP.ER.DEG PO (11:46)
[2020-09-20] MEDS: Rivaroxaban 20 MG TABLET PO (11:46)
--- NOTE | 2020-09-20 12:08 | HO.PM.IMPN ---
Subjective Subjective Date of Service: 09/20/20 Interval History: Seen in f/u for PNA, doing well, no specific complaint hypoxia continue to improve, succesful bronchoscopy 2/5. He is more hypoxic this morning and more somnolent, ABG ph7.55, CO2 62, PO2 55. CXR is done Review of Systems Gen: no fever Resp: + sob, no cough CV: no chest, no LUONG, no leg edema GI: No n/v, no abd pain Neuro: No confusion Physical Exam Vital Signs: Vital Signs: Last Vital Signs Temp 98.0 F 09/20/20 11:06 Pulse 101 H 09/20/20 11:59 Resp 21 H 09/20/20 11:06 BP 124/77 09/20/20 11:06 Pulse Ox 90 L 09/20/20 11:06 Body Mass Index 23.6 Const: Other: somnolent but easily aroused General: cooperative Orientation/consciousness: oriented to person and oriented to place Resp: Effort & Inspection: normal respiratory effort Auscultation: clear to auscultation bilaterally Cardio: Jugular venous distension: no JVD Rhythm: other (irregular) Heart sounds: S1 normal heart sound present and S2 normal heart sound present GI: Inspection: Yes normal to inspection Palpation (GI): Soft to palpation and nontender Skin: General skin exam: no rashes or lesions noted Neuro: General: oriented to person and oriented to place Psych: Affect: Labile affect present Objective Data Current Medications Generic Name Dose Route Start Last Admin Trade Name Freq PRN Reason Stop Dose Admin Acetaminophen 650 mg 09/12/20 17:26 Acetaminophen 325 Mg Tablet PO Q6H PRN Pain, Mild (Pain Scale 1-3) Acetaminophen 650 mg 09/12/20 17:26 09/18/20 20:34 Acetaminophen 325 Mg Tablet PO 650 mg BID PRN Administration Pain Albuterol/Ipratropium 3 ml 09/17/20 01:37 09/20/20 05:06 Albuterol/Iprat 2.5/0.5mg 3 Ml Ampul.Neb INHALE 3 ml RQ6H PRN Administration Shortness of Breath/Wheezing Amoxicillin/Clavulanate Potassium 500 mg 09/19/20 11:15 09/20/20 11:50 Amoxicillin/Potassium Clav 500 Mg Tablet PO Not Given Q12H JOSEP Bisacodyl 10 mg 09/12/20 17:26 Bisacodyl 10 Mg Supp.Rect [place] DAILY PRN Constipation Diltiazem HCl 120 mg 09/18/20 10:15 09/20/20 11:46 Diltiazem Hcl Cd 120 Mg Cap.Er.Deg PO 120 mg DAILY JOSEP Administration Protocol Duloxetine HCl 30 mg 09/13/20 09:00 09/20/20 11:49 Duloxetine Hcl 30 Mg Capsule. PO Not Given DAILY JOSEP Ferrous Sulfate 324 mg 09/13/20 09:00 09/20/20 11:49 Ferrous Sulfate 324 Mg Tablet. PO Not Given DAILY JOSEP Ipratropium [place] 0.5 mg 09/13/20 16:00 09/20/20 11:56 Ipratropium [place] 0.5 Mg/2.5 Ml Solution INHALE 0.5 mg RQ4H WHILE AWAKE JOSEP Administration Levalbuterol HCl 1.25 mg 09/13/20 16:00 09/20/20 11:56 Levalbuterol Hcl 1.25 Mg/0.5 Ml Vial.Neb INHALE 1.25 mg RQ4H WHILE AWAKE JOSEP Administration Ondansetron HCl 4 mg 09/12/20 17:26 Ondansetron Hcl 4 Mg/2 Ml Vial IVPUSH Q8H PRN Nausea and Vomiting Prednisone 40 mg 09/19/20 11:10 09/20/20 11:49 Prednisone 20 Mg Tablet PO Not Given DAILY JOSEP Quetiapine Fumarate 25 mg 09/12/20 21:00 09/19/20 21:36 Quetiapine Fumarate 25 Mg Tablet PO 25 mg BEDTIME JOSEP Administration Risperidone 1 mg 09/12/20 21:00 09/19/20 21:36 Risperidone 1 Mg Tablet PO 1 mg BEDTIME JOSEP Administration Rivaroxaban 20 mg 09/18/20 10:15 09/20/20 11:46 Rivaroxaban 20 Mg Tablet PO 20 mg DAILY JOSEP Administration Senna 8.6 mg 09/13/20 09:00 09/20/20 11:49 Sennosides 8.6 Mg Tablet PO Not Given DAILY JOSEP Sodium Chloride 3 ml 09/13/20 00:00 09/20/20 08:25 0.9 % Sodium Chloride Flush 3 Ml Syringe IVFLUSH 3 ml QSHIFT JOSEP Administration Sodium Chloride 3 ml 09/13/20 02:28 09/20/20 08:25 0.9 % Sodium Chloride Flush 3 Ml Syringe IVFLUSH 3 ml QSHIFT JOSEP Administration Torsemide 20 mg 09/13/20 09:00 09/20/20 11:49 Torsemide 20 Mg Tablet PO Not Given DAILY [facility] Protocol Labs CBC & Chem 7: 09/17/20 Unknown 09/17/20 00:05 Microbiology Microbiology Results: Microbiology 09/17/20 13:45 Bronch Rll Bronchial [place] Culture - Final No growth. 09/17/20 13:45 Bronch Rll Gram Stain - Final 09/17/20 13:44 Bronchial Washings Gram Stain - Final 09/17/20 13:44 Bronchial Washings Routine Culture - Final No growth after 2 days 09/12/20 10:19 Blood - Venous Blood Culture - Final No growth after 5 days. 09/12/20 10:02 Blood - Venous Blood Culture - Final No growth after 5 days. Assessment and Plan (1) Hypoxia: Status: Acute (2) Acute exacerbation of chronic obstructive pulmonary disease (COPD): Status: Acute (3) Hospital-acquired pneumonia: Status: Acute Assessment and Plan: 74-year-old man presenting from [facility] with pneumonia, acute on chronic respiratory failure secondary to pneumonia and COPD exacerbation. 1. Acute on chronic respiratory failure with hypoxia and hypercarbia due to copd exacerbation + HCAP + possible Lung mass s/p bronch and Bx titrate o2 to keep saturations 90; ABG today as noted above Keep O2 around 90, will consider CPAP 2. HCAP Vancomcyin allergy. Cefepimine DCd, continue Oral doxy 3. COPD exacerbation updrats (xopenex inplace of albuterol due to tachycardia) and solumedrol, change to PO prednisone and nava over 2 weeks Hypercarbia, will discuss use of CPAP with pulmonology service 4. A. Flutter with RVR, no on rate control meds, rvr propably due to acute illness. On Xarelto for anticoaglation, check H/H. Increase cardizem to 180 for better rate control -SVTs-normal mag, cardiology following, avoid BB due to advanced COPD 5. Lung Mass--Bronchosocopy done on 09/17, result pending 6.Anemia--H/H was low on admission and stable, no sings of bleeding, check H/H today 7. Schizophrenia continue baseline meds Full Code DVT pptx, Lucas
[2020-09-20 13:20] LABS: Hematocrit 27.5 % (42-52); Hemoglobin 8.3 g/dl (14.0-18.0); Mean Corpuscular HGB Conc 30.2 g/dl (31.0-36.0); Mean Corpuscular Hemoglobin 22.7 pg (27.0-33.0); Mean Corpuscular Volume 75.1 fL (80-98); Mean Platelet Volume 9.9 fL (9.4-12.4); Platelet Count 291 X10*3/uL (160-400); Red Blood Count 3.66 X10*6/uL (4.60-5.80); Red Cell Distribution Width 15.6 % (11.0-16.0); White Blood Count 16.9 X10*3/uL (4.8-10.8)
[2020-09-20 13:45] LABS: Anion Gap 14 (12-20); Blood Urea Nitrogen 26 mg/dL (9-16); Calcium 8.5 mg/dL (8.4-10.2); Carbon Dioxide 38 mmol/L (22-29); Chloride 92 mmol/L (96-108); Creatinine Clr Calc Pharmacy 95.4; Estimated Glomerular Filt Rate > 60; Glucose Random 93 mg/dL (60-115); Potassium 3.7 mmol/L (3.3-5.1); Sodium 140 mmol/L (135-145)
[2020-09-20] MEDS: risperiDONE 1 MG TABLET PO (21:09)
[2020-09-20] MEDS: QUEtiapine Fumarate 25 MG TABLET PO (21:09)
[2020-09-20] MEDS: Amoxicillin/Potassium Clav 500 MG TABLET PO (23:02)
[2020-09-21] VITALS (11 sets, daily range): BP systolic 110–119; BP diastolic 57–61; PULSE 73–112; RESP 18–20; TEMP 36.1–37.1; O2SAT 95–100
[2020-09-21] MEDS: dilTIAZem HCL CD 120 MG CAP.ER.DEG PO (08:14)
[2020-09-21] MEDS: DULoxetine HCl 30 MG CAPSULE.DR PO (08:14)
[2020-09-21] MEDS: Sennosides 8.6 MG TABLET PO (08:15)
[2020-09-21] MEDS: predniSONE 20 MG TABLET 40 MG PO (08:15)
[2020-09-21] MEDS: Torsemide 20 MG TABLET PO (08:15)
[2020-09-21] MEDS: Rivaroxaban 20 MG TABLET PO (08:15)
[2020-09-21] MEDS: Ferrous Sulfate 324 MG TABLET.DR PO (08:15)
[2020-09-21] MEDS: 0.9 % Sodium Chloride Flush 3 ML SYRINGE IVFLUSH ×3 (08:17→18:00)
--- NOTE | 2020-09-21 10:25 | PM.PNCARD ---
Subjective Subjective Date of Service: 09/21/20 Principal diagnosis: PNEUMONIA, COPD excerbation Interval history: Patient has a vague chest pain but highly nonspecific and difficult to characterize. Review of Systems Review of Systems Yes all other systems are reviewed and are negative Cardiovascular: Reports as per HPI, Reports no additional cardiovascular complaints, Denies acrocyanosis, Denies cool extremities, Denies painful fingertips, Reports chest pain, Denies diaphoresis, Denies syncope, Denies irregular heart rhythm, Denies claudication, Denies leg edema, Denies lightheadedness, Denies palpitations and Denies dyspnea Respiratory: Denies dyspnea Denies syncope Endocrine: Denies palpitations Physical Exam Vital Signs: Last Vital Signs Temp 98.5 F 09/21/20 07:59 Pulse 112 H 09/21/20 08:14 Resp 20 09/21/20 07:59 BP 116/60 09/21/20 08:14 Pulse Ox 100 09/21/20 07:59 Body Mass Index 23.6 Const Other: Difficult to examine as he is constantly moaning during the exam. General: comfortable and no acute distress HENMT Other: Unremarkable Neck Neck: Yes normal visual inspection Chest Chest palpation & inspection: normal inspection of the chest Resp Other: Coarse breath sounds bilateral with scattered rhonchi Cardio Other: Difficult to examine as he is constantly moaning during the exam. Heart sounds: S1 normal heart sound present, S2 normal heart sound present and Murmur heart sound present systolic early and at the right sternal border GI Palpation (GI): Soft to palpation Back/Spine/Pelvis Other: unremarkable Skin General skin exam: no rashes or lesions noted Extrem General: Yes no clubbing, cyanosis or edema Psych Mental Status: mental status grossly normal Results Labs and Meds Result diagrams: 09/20/20 13:06 09/20/20 13:06 Lab results: Laboratory Results - last 24 hr 09/20/20 09/20/20 09/20/20 13:06 13:06 13:06 WBC 16.9 H RBC 3.66 L Hgb 8.3 L Hct 27.5 L MCV 75.1 L MCH 22.7 L MCHC 30.2 L RDW 15.6 Plt Count 291 D MPV 9.9 Absolute Nucleated RBC 0.000 Nucleated RBC % (auto) 0.0 Sodium 140 Potassium 3.7 Chloride 92 L Carbon Dioxide 38 H Anion Gap 14 BUN 26 H Creatinine 0.68 Estim Creat Clear Calc 95.4 Estimated GFR > 60 Random Glucose 93 Calcium 8.5 Blood Type A Positive Antibody Screen NEGATIVE Imaging Radiologist's impression: Impressions Chest X-Ray 09/20/20 08:34 IMPRESSION: Persistent left upper lobe and bibasilar opacification is stable. Old healed left ribs as described above are unchanged. Progress Note: A&P Assessment and plan (1) Persistent atrial fibrillation: Status: Acute (2) NSVT (nonsustained ventricular tachycardia): Status: Acute (3) Respiratory failure with hypoxia and hypercapnia: Status: Acute (4) Mass of upper lobe of left lung: Status: Acute Assessment and Plan: . LVEF 50-55% and basal inferior hypokinesis. Left atrium is severely dilated. There is moderate aortic stenosis with mild pulmonary hypertension. On telemetry, he is in atrial fibrillation with a rate about 100/Min. Has had NSVT earlier but nothing recurrent. He has had a chest CT scan that shows cardiomegaly; aortic valve and mild to moderate coronary calcifications. Overall, rate control for atrial fibrillation as this seems chronic. Add Digoxin . Continue anticoagulation. With regard to aortic stenosis, could potentially monitor as outpatient but he is not a good candidate for any form of ischemia workup for further therapy. Likely conservative care. Fall Risk Details Current Medications: Current Medications Generic Name Dose Route Start Last Admin Trade Name Freq PRN Reason Stop Dose Admin Acetaminophen 650 mg 09/12/20 17:26 Acetaminophen 325 Mg Tablet PO Q6H PRN Pain, Mild (Pain Scale 1-3) Acetaminophen 650 mg 09/12/20 17:26 09/18/20 20:34 Acetaminophen 325 Mg Tablet PO 650 mg BID PRN Administration Pain Albuterol/Ipratropium 3 ml 09/17/20 01:37 09/20/20 05:06 Albuterol/Iprat 2.5/0.5mg 3 Ml Ampul.Neb INHALE 3 ml RQ6H PRN Administration Shortness of Breath/Wheezing Amoxicillin/Clavulanate Potassium 500 mg 09/19/20 11:15 09/20/20 23:02 Amoxicillin/Potassium Clav 500 Mg Tablet PO 500 mg Q12H JOSEP Administration Bisacodyl 10 mg 09/12/20 17:26 Bisacodyl 10 Mg Supp.Rect [place] DAILY PRN Constipation Diltiazem HCl 120 mg 09/18/20 10:15 09/21/20 08:14 Diltiazem Hcl Cd 120 Mg Cap.Er.Deg PO 120 mg DAILY JOSEP Administration Protocol Duloxetine HCl 30 mg 09/13/20 09:00 09/21/20 08:14 Duloxetine Hcl 30 Mg Capsule.Dr PO 30 mg DAILY JOSEP Administration Ferrous Sulfate 324 mg 09/13/20 09:00 09/21/20 08:15 Ferrous Sulfate 324 Mg Tablet. PO 324 mg DAILY JOSEP Administration Ondansetron HCl 4 mg 09/12/20 17:26 Ondansetron Hcl 4 Mg/2 Ml Vial IVPUSH Q8H PRN Nausea and Vomiting Prednisone 40 mg 09/19/20 11:10 09/21/20 08:15 Prednisone 20 Mg Tablet PO 40 mg DAILY JOSEP Administration Quetiapine Fumarate 25 mg 09/12/20 21:00 09/20/20 21:09 Quetiapine Fumarate 25 Mg Tablet PO 25 mg BEDTIME JOSEP Administration Risperidone 1 mg 09/12/20 21:00 09/20/20 21:09 Risperidone 1 Mg Tablet PO 1 mg BEDTIME JOSEP Administration Rivaroxaban 20 mg 09/18/20 10:15 09/21/20 08:15 Rivaroxaban 20 Mg Tablet PO 20 mg DAILY JOSEP Administration Senna 8.6 mg 09/13/20 09:00 09/21/20 08:15 Sennosides 8.6 Mg Tablet PO 8.6 mg DAILY JOSEP Administration Sodium Chloride 3 ml 09/13/20 00:00 09/21/20 08:17 0.9 % Sodium Chloride Flush 3 Ml Syringe IVFLUSH 3 ml QSHIFT JOSEP Administration Sodium Chloride 3 ml 09/13/20 02:28 09/21/20 08:17 0.9 % Sodium Chloride Flush 3 Ml Syringe IVFLUSH Not Given QSHIFT JOSEP Torsemide 20 mg 09/13/20 09:00 09/21/20 08:15 Torsemide 20 Mg Tablet PO 20 mg DAILY JOSEP Administration Protocol Time Spent With Patient Time: Total time spent is greater than 50% in coordination of care (as documented) at patient's floor/unit and/or counseling patient: Time with patient: less than 15 minutes
--- NOTE | 2020-09-21 11:49 | HO.PM.IMPN ---
Subjective Subjective Date of Service: 09/22/20 Interval History: Seen in f/u for PNA, doing well, no specific complaint hypoxia continue to improve, s/p bronch on 09/17. He was less responsive and hypoxic and appear he may have had mucus plug, he's more awake today and oxygenating well and more alert Review of Systems Gen: no fever Resp: + sob, no cough CV: no chest, no LUONG, no leg edema GI: No n/v, no abd pain Neuro: No confusion Physical Exam Vital Signs: Vital Signs: Last Vital Signs Temp 97.3 F 09/21/20 11:32 Pulse 98 09/21/20 11:32 Resp 19 09/21/20 11:32 BP 111/58 L 09/21/20 11:32 Pulse Ox 99 09/21/20 11:32 Body Mass Index 23.6 Const: Other: no longer somnolent General: cooperative Orientation/consciousness: oriented to person and oriented to place Resp: Effort & Inspection: normal respiratory effort Cardio: Other: rhonchi belen Jugular venous distension: no JVD Rhythm: other (irregular) Heart sounds: S1 normal heart sound present and S2 normal heart sound present GI: Inspection: Yes normal to inspection Palpation (GI): Soft to palpation and nontender Skin: General skin exam: no rashes or lesions noted Neuro: General: oriented to person and oriented to place Psych: Affect: Labile affect present Objective Data Current Medications Generic Name Dose Route Start Last Admin Trade Name Freq PRN Reason Stop Dose Admin Acetaminophen 650 mg 09/12/20 17:26 Acetaminophen 325 Mg Tablet PO Q6H PRN Pain, Mild (Pain Scale 1-3) Acetaminophen 650 mg 09/12/20 17:26 09/18/20 20:34 Acetaminophen 325 Mg Tablet PO 650 mg BID PRN Administration Pain Albuterol/Ipratropium 3 ml 09/17/20 01:37 09/20/20 05:06 Albuterol/Iprat 2.5/0.5mg 3 Ml Ampul.Neb INHALE 3 ml RQ6H PRN Administration Shortness of Breath/Wheezing Amoxicillin/Clavulanate Potassium 500 mg 09/19/20 11:15 09/20/20 23:02 Amoxicillin/Potassium Clav 500 Mg Tablet PO 500 mg Q12H JOSEP Administration Bisacodyl 10 mg 09/12/20 17:26 Bisacodyl 10 Mg Supp.Rect AR DAILY PRN Constipation Digoxin 0.25 mg 09/21/20 10:30 Digoxin 0.25 Mg Tablet PO 09/22/20 04:31 Q6H JOSEP Diltiazem HCl 120 mg 09/18/20 10:15 09/21/20 08:14 Diltiazem Hcl Cd 120 Mg Cap.Er.Deg PO 120 mg DAILY JOSEP Administration Protocol Duloxetine HCl 30 mg 09/13/20 09:00 09/21/20 08:14 Duloxetine Hcl 30 Mg Capsule. PO 30 mg DAILY JOSEP Administration Ferrous Sulfate 324 mg 09/13/20 09:00 09/21/20 08:15 Ferrous Sulfate 324 Mg Tablet. PO 324 mg DAILY JOSEP Administration Ondansetron HCl 4 mg 09/12/20 17:26 Ondansetron Hcl 4 Mg/2 Ml Vial IVPUSH Q8H PRN Nausea and Vomiting Prednisone 40 mg 09/19/20 11:10 09/21/20 08:15 Prednisone 20 Mg Tablet PO 40 mg DAILY JOSEP Administration Quetiapine Fumarate 25 mg 09/12/20 21:00 09/20/20 21:09 Quetiapine Fumarate 25 Mg Tablet PO 25 mg BEDTIME JOSEP Administration Risperidone 1 mg 09/12/20 21:00 09/20/20 21:09 Risperidone 1 Mg Tablet PO 1 mg BEDTIME JOSEP Administration Rivaroxaban 20 mg 09/18/20 10:15 09/21/20 08:15 Rivaroxaban 20 Mg Tablet PO 20 mg DAILY JOSEP Administration Senna 8.6 mg 09/13/20 09:00 09/21/20 08:15 Sennosides 8.6 Mg Tablet PO 8.6 mg DAILY JOSEP Administration Sodium Chloride 3 ml 09/13/20 00:00 09/21/20 08:17 0.9 % Sodium Chloride Flush 3 Ml Syringe IVFLUSH 3 ml QSHIFT JOSEP Administration Sodium Chloride 3 ml 09/13/20 02:28 09/21/20 08:17 0.9 % Sodium Chloride Flush 3 Ml Syringe IVFLUSH Not Given QSHIFT JOSEP Torsemide 20 mg 09/13/20 09:00 09/21/20 08:15 Torsemide 20 Mg Tablet PO 20 mg DAILY JOSEP Administration Protocol Labs CBC & Chem 7: 09/20/20 13:06 09/20/20 13:06 Microbiology Microbiology Results: Microbiology 09/17/20 13:45 Brushing - [place] Rll Fungal Identification - Preliminary No growth to date. 09/17/20 13:44 Bronchial Washings Fungal Identification - Preliminary No growth to date. 09/17/20 13:45 Bronch Rll Bronchial [place] Culture - Final No growth. 09/17/20 13:45 Bronch Rll Gram Stain - Final 09/17/20 13:44 Bronchial Washings Gram Stain - Final 09/17/20 13:44 Bronchial Washings Routine Culture - Final No growth after 2 days 09/12/20 10:19 Blood - Venous Blood Culture - Final No growth after 5 days. 09/12/20 10:02 Blood - Venous Blood Culture - Final No growth after 5 days. Assessment and Plan (1) Hypoxia: Status: Acute (2) Acute exacerbation of chronic obstructive pulmonary disease (COPD): Status: Acute (3) Hospital-acquired pneumonia: Status: Acute Assessment and Plan: A 74-year-old man presenting from [facility] with pneumonia, acute on chronic respiratory failure secondary to pneumonia and COPD exacerbation. 1. Acute on chronic respiratory failure with hypoxia and hypercarbia due to COPD exacerbation + HCAP + possible Lung mass s/p bronch and Bx titrate o2 to keep saturations 90; ABG today as noted above Keep O2 around 90, will consider CPAP 2. HCAP Vancomycin allergy. Dc'd Cefipime and on Augmentin. Add Doyx 3. COPD exacerbation updrats (Xopenex in place of albuterol due to tachycardia) and solumedrol, change to PO prednisone and nava over 2 weeks Hypercarbia, clinically better today 4. A. Flutter with RVR, no on rate control meds, rvr probably due to acute illness. On Xarelto for anticoagulation, check H/H. Increase Cardizem to 180 for better rate control -SVTs-normal mag, cardiology following, avoid BB due to advanced COPD 5. Lung Mass--Bronchosocopy done on 09/17, atypical cells, no malignancy 6.Anemia--H/H was low on admission and stable, no signs of bleeding, check H/H today 7. Schizophrenia continue baseline meds PT eval Full Code DVT pptx, Xarelto
--- NOTE | 2020-09-21 12:33 | P.PNPL_ITS ---
Subjective Subjective Date of Service: 09/21/20 Principal diagnosis: PNEUMONIA, COPD excerbation Interval history: The patient was seen on exam. Appears to be more alert today. A nasal cannula. Bronchoscopy specimens were nondiagnostic. Will benefit from an outpatient PET scan to assess the extent of the likely malignancy. Objective Data Labs CBC & Chem 7: 09/20/20 13:06 09/20/20 13:06 Labs: Laboratory Results - last 24 hr 09/20/20 09/20/20 09/20/20 13:06 13:06 13:06 WBC 16.9 H RBC 3.66 L Hgb 8.3 L Hct 27.5 L MCV 75.1 L MCH 22.7 L MCHC 30.2 L RDW 15.6 Plt Count 291 D MPV 9.9 Absolute Nucleated RBC 0.000 Nucleated RBC % (auto) 0.0 Sodium 140 Potassium 3.7 Chloride 92 L Carbon Dioxide 38 H Anion Gap 14 BUN 26 H Creatinine 0.68 Estim Creat Clear Calc 95.4 Estimated GFR > 60 Random Glucose 93 Calcium 8.5 Blood Type A Positive Antibody Screen NEGATIVE Microbiology Microbiology Results: Microbiology 09/17/20 13:45 Brushing - [place] Rll Fungal Identification - Preliminary No growth to date. 09/17/20 13:44 Bronchial Washings Fungal Identification - Preliminary No growth to date. 09/17/20 13:45 Bronch Rll Bronchial [place] Culture - Final No growth. 09/17/20 13:45 Bronch Rll Gram Stain - Final 09/17/20 13:44 Bronchial Washings Gram Stain - Final 09/17/20 13:44 Bronchial Washings Routine Culture - Final No growth after 2 days 09/12/20 10:19 Blood - Venous Blood Culture - Final No growth after 5 days. 09/12/20 10:02 Blood - Venous Blood Culture - Final No growth after 5 days. Review of Systems Review of Systems Yes Unobtainable due to mental status Physical Exam Vital Signs: Vital Signs: Last Vital Signs Temp 97.3 F 09/21/20 11:32 Pulse 98 09/21/20 12:16 Resp 19 09/21/20 11:32 BP 111/58 L 09/21/20 12:16 Pulse Ox 99 09/21/20 12:16 Body Mass Index 23.6 Const: General: alert HENMT: General nose exam: Abnormal external nose present and Nasal discharge present Neck: Neck: Yes normal visual inspection, Yes full ROM and Yes no lymphadenopathy Chest: Chest palpation & inspection: normal inspection of the chest Resp: Auscultation: diminished lung sounds Cardio: Rate: regular rate Rhythm: regular rhythm Heart sounds: S1 normal heart sound present and S2 normal heart sound present GI: Palpation (GI): Soft to palpation and nontender Auscultation: normal bowel sounds Assessment and Plan Assessment and plan (1) Respiratory failure with hypoxia and hypercapnia: Status: Acute (2) Mass of upper lobe of left lung: Status: Acute (3) Acute exacerbation of chronic obstructive pulmonary disease (COPD): Status: Acute Assessment and Plan: Continue respiratory therapy Prednisone taper Complete 10 days of Augmentin Nasal cannula O2 to maintain a pulse ox above 90% Hopefully patient to be discharged soon in order for him to get an outpatient PET scan for radiological staging of his likely malignancy. Time Spent With Patient Time: Total time spent is greater than 50% in coordination of care (as documented) at patient's floor/unit and/or counseling patient: Time with patient: 15 - 24 minutes
[2020-09-21] MEDS: Digoxin 0.25 MG TABLET PO ×3 (12:39→21:29)
[2020-09-21] MEDS: Amoxicillin/Potassium Clav 500 MG TABLET PO (12:39)
[2020-09-21] MEDS: QUEtiapine Fumarate 25 MG TABLET PO (21:29)
[2020-09-21] MEDS: risperiDONE 1 MG TABLET PO (21:29)
[2020-09-22] VITALS (8 sets, daily range): BP systolic 99–130; BP diastolic 60–90; PULSE 65–95; RESP 18–20; TEMP 36.8–37; O2SAT 90–100
[2020-09-22] MEDS: 0.9 % Sodium Chloride Flush 3 ML SYRINGE IVFLUSH ×6 (00:50→20:33)
[2020-09-22] MEDS: Amoxicillin/Potassium Clav 500 MG TABLET PO ×3 (00:50→23:48)
[2020-09-22] MEDS: Digoxin 0.25 MG TABLET PO (05:34)
[2020-09-22] MEDS: Ferrous Sulfate 324 MG TABLET.DR PO (09:19)
[2020-09-22] MEDS: DULoxetine HCl 30 MG CAPSULE.DR PO (09:19)
[2020-09-22] MEDS: Rivaroxaban 20 MG TABLET PO (09:19)
[2020-09-22] MEDS: dilTIAZem HCL CD 120 MG CAP.ER.DEG PO (09:19)
[2020-09-22] MEDS: predniSONE 20 MG TABLET 40 MG PO (09:19)
[2020-09-22] MEDS: Torsemide 20 MG TABLET PO (09:19)
[2020-09-22] MEDS: Sennosides 8.6 MG TABLET PO (09:19)
--- NOTE | 2020-09-22 09:21 | PM.PNPUL ---
Subjective Subjective Date of Service: 09/22/20 Principal diagnosis: PNEUMONIA, COPD excerbation Interval history: The patient was seen on exam. Still does not feel well. Does require 8-10 L of oxygen. Currently on nasal cannula. Again, his bronchoscopy was nondiagnostic demonstrating only atypical cells. The patient does have a large left-sided lung mass concerning for malignancy. Based on his oxygen requirements to be difficult for him to tolerate a repeat procedure or let alone a CT-guided biopsy. Patient does have a significant cardiac history as well. Objective Data Labs CBC & Chem 7: 09/20/20 13:06 09/20/20 13:06 Microbiology Microbiology Results: Microbiology 09/17/20 13:45 Brushing - [place] Rll Fungal Identification - Preliminary No growth to date. 09/17/20 13:44 Bronchial Washings Fungal Identification - Preliminary No growth to date. 09/17/20 13:45 Bronch Rll Bronchial [place] Culture - Final No growth. 09/17/20 13:45 Bronch Rll Gram Stain - Final 09/17/20 13:44 Bronchial Washings Gram Stain - Final 09/17/20 13:44 Bronchial Washings Routine Culture - Final No growth after 2 days 09/12/20 10:19 Blood - Venous Blood Culture - Final No growth after 5 days. 09/12/20 10:02 Blood - Venous Blood Culture - Final No growth after 5 days. Review of Systems Review of Systems Yes Unobtainable due to mental condition Physical Exam Vital Signs: Vital Signs: Last Vital Signs Temp 98.2 F 09/22/20 08:00 Pulse 95 09/22/20 08:00 Resp 18 09/22/20 08:00 BP 130/90 H 09/22/20 08:00 Pulse Ox 100 09/22/20 08:00 Body Mass Index 23.6 Const: General: alert Neck: Neck: Yes normal visual inspection, Yes full ROM and Yes no lymphadenopathy Chest: Chest palpation & inspection: normal inspection of the chest Resp: Auscultation: diminished lung sounds Cardio: Rate: regular rate Rhythm: abnormal rhythm Heart sounds: S1 normal heart sound present and S2 normal heart sound present GI: Palpation (GI): Soft to palpation and nontender Auscultation: normal bowel sounds Assessment and Plan Assessment and plan (1) Respiratory failure with hypoxia and hypercapnia: Status: Acute (2) Hospital-acquired pneumonia: Status: Acute (3) Mass of upper lobe of left lung: Status: Acute Assessment and Plan: Continue oxygen to maintain a pulse ox above 90% Patient carries a poor prognosis with high suspicion of lung cancer. Will benefit from a PET scan to see extent of disease. Bronchoscopy was not helpful as it was nondiagnostic. During the bronchoscopy he did have increased cardiac risks therefore unable to perform biopsies at the time. Could consider repeating the bronchoscopy with biopsies. CT-guided biopsy will be another option. However, patient is in high oxygen requirements, therefore, will be high risk. Stat clear how much the patient understands of was going on. Psych eval CPT Hold the anticoagulation for potential procedure. Time Spent With Patient Time: Total time spent is greater than 50% in coordination of care (as documented) at patient's floor/unit and/or counseling patient: Time with patient: 15 - 24 minutes
--- NOTE | 2020-09-22 10:35 | P.PNCA_ITS ---
Subjective Subjective Date of Service: 09/22/20 Principal diagnosis: PNEUMONIA, COPD excerbation Interval history: Patient states that he has had some left-sided chest discomfort that is constant. Review of Systems Review of Systems Yes all other systems are reviewed and are negative Cardiovascular: Reports as per HPI, Reports no additional cardiovascular complaints, Denies acrocyanosis, Denies cool extremities, Denies painful fing ertips, Reports chest pain, Denies diaphoresis, Denies syncope, Denies irregular heart rhythm, Denies claudication, Denies leg edema, Denies lightheadedness, Denies palpitations and Denies dyspnea Respiratory: Denies dyspnea Denies syncope Endocrine: Denies palpitations Physical Exam Vital Signs: Last Vital Signs Temp 98.2 F 09/22/20 08:00 Pulse 95 09/22/20 08:00 Resp 18 09/22/20 08:00 BP 130/90 H 09/22/20 08:00 Pulse Ox 100 09/22/20 08:00 Body Mass Index 23.6 Const Other: Difficult to examine as he is constantly moaning General: comfortable and no acute distress HENDE Other: Unremarkable Neck Neck: Yes normal visual inspection Chest Chest palpation & inspection: normal inspection of the chest Resp Other: Coarse breath sounds bilateral with scattered rhonchi Cardio Other: Difficult to examine as he is constantly moaning during the exam. Heart sounds: S1 normal heart sound present, S2 normal heart sound present and Murmur heart sound present systolic early and at the right sternal border GI Palpation (GI): Soft to palpation Back/Spine/Pelvis Other: unremarkable Skin General skin exam: no rashes or lesions noted Extrem General: Yes no clubbing, cyanosis or edema Psych Mental Status: mental status grossly normal Results Labs and Meds Result diagrams: 09/20/20 13:06 09/20/20 13:06 Progress Note: A&P Assessment and plan (1) Persistent atrial fibrillation: Status: Acute (2) NSVT (nonsustained ventricular tachycardia): Status: Acute (3) Respiratory failure with hypoxia and hypercapnia: Status: Acute (4) Mass of upper lobe of left lung: Status: Acute Assessment and Plan: Echocardiogram with LVEF 50-55% and basal inferior hypokinesis. Left atrium is severely dilated. There is moderate aortic stenosis with mild pulmonary hypertension. On telemetry, he is in atrial fibrillation with a rate about 100/Min. Very brief NSVT. He has had a chest CT scan that shows cardiomegaly; aortic valve and mild to moderate coronary calcifications. Overall, rate control for atrial fibrillation as this seems chronic. Add Digoxin . Continue anticoagulation. With regard to aortic stenosis, could potentially monitor as outpatient but he is not a good candidate for any form of ischemia workup for further therapy. Likely conservative care. Need to decide on goals due to mental status, lack of family/social support. Fall Risk Details Current Medications: Current Medications Generic Name Dose Route Start Last Admin Trade Name Freq PRN Reason Stop Dose Admin Acetaminophen 650 mg 09/12/20 17:26 Acetaminophen 325 Mg Tablet PO Q6H PRN Pain, Mild (Pain Scale 1-3) Acetaminophen 650 mg 09/12/20 17:26 09/18/20 20:34 Acetaminophen 325 Mg Tablet PO 650 mg BID PRN Administration Pain Albuterol/Ipratropium 3 ml 09/17/20 01:37 09/20/20 05:06 Albuterol/Iprat 2.5/0.5mg 3 Ml Ampul.Neb INHALE 3 ml RQ6H PRN Administration Shortness of Breath/Wheezing Amoxicillin/Clavulanate Potassium 500 mg 09/19/20 11:15 09/22/20 00:50 Amoxicillin/Potassium Clav 500 Mg Tablet PO 500 mg Q12H JOSEP Administration Bisacodyl 10 mg 09/12/20 17:26 Bisacodyl 10 Mg Supp.Rect [place] DAILY PRN Constipation Diltiazem HCl 120 mg 09/18/20 10:15 09/22/20 09:19 Diltiazem Hcl Cd 120 Mg Cap.Er.Deg PO 120 mg DAILY JOSEP Administration Protocol Duloxetine HCl 30 mg 09/13/20 09:00 09/22/20 09:19 Duloxetine Hcl 30 Mg Capsule. PO 30 mg DAILY JOSEP Administration Ferrous Sulfate 324 mg 09/13/20 09:00 09/22/20 09:19 Ferrous Sulfate 324 Mg Tablet. PO 324 mg DAILY JOSEP Administration Ondansetron HCl 4 mg 09/12/20 17:26 Ondansetron Hcl 4 Mg/2 Ml Vial IVPUSH Q8H PRN Nausea and Vomiting Prednisone 40 mg 09/19/20 11:10 09/22/20 09:19 Prednisone 20 Mg Tablet PO 40 mg DAILY JOSEP Administration Quetiapine Fumarate 25 mg 09/12/20 21:00 09/21/20 21:29 Quetiapine Fumarate 25 Mg Tablet PO 25 mg BEDTIME JOSEP Administration Risperidone 1 mg 09/12/20 21:00 09/21/20 21:29 Risperidone 1 Mg Tablet PO 1 mg BEDTIME JOSEP Administration Senna 8.6 mg 09/13/20 09:00 09/22/20 09:19 Sennosides 8.6 Mg Tablet PO 8.6 mg DAILY JOSEP Administration Sodium Chloride 3 ml 09/13/20 00:00 09/22/20 09:20 0.9 % Sodium Chloride Flush 3 Ml Syringe IVFLUSH 3 ml QSHIFT JOSEP Administration Sodium Chloride 3 ml 09/13/20 02:28 09/22/20 09:20 0.9 % Sodium Chloride Flush 3 Ml Syringe IVFLUSH Not Given QSHIFT JOSEP Torsemide 20 mg 09/13/20 09:00 09/22/20 09:19 Torsemide 20 Mg Tablet PO 20 mg DAILY JOSEP Administration Protocol Time Spent With Patient Time: Total time spent is greater than 50% in coordination of care (as documented) at patient's floor/unit and/or counseling patient: Time with patient: less than 15 minutes
--- NOTE | 2020-09-22 10:49 | P.PNIM_ITS ---
Subjective Subjective Date of Service: 09/23/20 Interval History: Seen in f/u for PNA, doing well, no specific complaint hypoxia continue to improve, s/p bronch on 09/17. He is still hypoxic and requiring high amount of oxygen and always says he is lousy . has short beat of Vtach Review of Systems Gen: no fever Resp: + sob, + cough CV: no chest, no LUONG, no leg edema GI: No n/v, no abd pain Neuro: No confusion Physical Exam Vital Signs: Vital Signs: Last Vital Signs Temp 98.2 F 09/22/20 08:00 Pulse 95 09/22/20 08:00 Resp 18 09/22/20 08:00 BP 130/90 H 09/22/20 08:00 Pulse Ox 100 09/22/20 08:00 Body Mass Index 23.6 Const: Other: rhonchi belen General: cooperative Orientation/consciousness: oriented to person and oriented to place Resp: Effort & Inspection: normal respiratory effort Auscultation: clear to auscultation bilaterally Cardio: Other: rhonchi belen Jugular venous distension: no JVD Rhythm: other (irregular) Heart sounds: S1 normal heart sound present and S2 normal heart sound present GI: Inspection: Yes normal to inspection Palpation (GI): Soft to palpation and nontender Skin: General skin exam: no rashes or lesions noted Neuro: General: oriented to person and oriented to place Psych: Affect: Labile affect present Objective Data Current Medications Generic Name Dose Route Start Last Admin Trade Name Freq PRN Reason Stop Dose Admin Acetaminophen 650 mg 09/12/20 17:26 Acetaminophen 325 Mg Tablet PO Q6H PRN Pain, Mild (Pain Scale 1-3) Acetaminophen 650 mg 09/12/20 17:26 09/18/20 20:34 Acetaminophen 325 Mg Tablet PO 650 mg BID PRN Administration Pain Albuterol/Ipratropium 3 ml 09/17/20 01:37 09/20/20 05:06 Albuterol/Iprat 2.5/0.5mg 3 Ml Ampul.Neb INHALE 3 ml RQ6H PRN Administration Shortness of Breath/Wheezing Amoxicillin/Clavulanate Potassium 500 mg 09/19/20 11:15 09/22/20 00:50 Amoxicillin/Potassium Clav 500 Mg Tablet PO 500 mg Q12H JOSEP Administration Bisacodyl 10 mg 09/12/20 17:26 Bisacodyl 10 Mg Supp.Rect [place] DAILY PRN Constipation Digoxin 0.125 mg 09/23/20 09:00 Digoxin 0.125 Mg Tablet PO DAILY JOSEP Diltiazem HCl 120 mg 09/18/20 10:15 09/22/20 09:19 Diltiazem Hcl Cd 120 Mg Cap.Er.Deg PO 120 mg DAILY JOSEP Administration Protocol Duloxetine HCl 30 mg 09/13/20 09:00 09/22/20 09:19 Duloxetine Hcl 30 Mg Capsule. PO 30 mg DAILY JOSEP Administration Ferrous Sulfate 324 mg 09/13/20 09:00 09/22/20 09:19 Ferrous Sulfate 324 Mg Tablet. PO 324 mg DAILY JOSEP Administration Ondansetron HCl 4 mg 09/12/20 17:26 Ondansetron Hcl 4 Mg/2 Ml Vial IVPUSH Q8H PRN Nausea and Vomiting Prednisone 40 mg 09/19/20 11:10 09/22/20 09:19 Prednisone 20 Mg Tablet PO 40 mg DAILY JOSEP Administration Quetiapine Fumarate 25 mg 09/12/20 21:00 09/21/20 21:29 Quetiapine Fumarate 25 Mg Tablet PO 25 mg BEDTIME JOSEP Administration Risperidone 1 mg 09/12/20 21:00 09/21/20 21:29 Risperidone 1 Mg Tablet PO 1 mg BEDTIME JOSEP Administration Senna 8.6 mg 09/13/20 09:00 09/22/20 09:19 Sennosides 8.6 Mg Tablet PO 8.6 mg DAILY JOSEP Administration Sodium Chloride 3 ml 09/13/20 00:00 09/22/20 09:20 0.9 % Sodium Chloride Flush 3 Ml Syringe IVFLUSH 3 ml QSHIFT JOSEP Administration Sodium Chloride 3 ml 09/13/20 02:28 09/22/20 09:20 0.9 % Sodium Chloride Flush 3 Ml Syringe IVFLUSH Not Given QSHIFT JOSEP Torsemide 20 mg 09/13/20 09:00 09/22/20 09:19 Torsemide 20 Mg Tablet PO 20 mg DAILY JOSEP Administration Protocol Labs CBC & Chem 7: 09/22/20 11:14 09/22/20 13:11 Microbiology Microbiology Results: Microbiology 09/17/20 13:45 Brushing - [place] Rll Fungal Identification - Preliminary No growth to date. 09/17/20 13:44 Bronchial Washings Fungal Identification - Preliminary No growth to date. 09/17/20 13:45 Bronch Rll Bronchial [place] Culture - Final No growth. 09/17/20 13:45 Bronch Rll Gram Stain - Final 09/17/20 13:44 Bronchial Washings Gram Stain - Final 09/17/20 13:44 Bronchial Washings Routine Culture - Final No growth after 2 days 09/12/20 10:19 Blood - Venous Blood Culture - Final No growth after 5 days. 09/12/20 10:02 Blood - Venous Blood Culture - Final No growth after 5 days. Assessment and Plan (1) Hypoxia: Status: Acute (2) Acute exacerbation of chronic obstructive pulmonary disease (COPD): Status: Acute (3) Hospital-acquired pneumonia: Status: Acute Assessment and Plan: A 74-year-old man presenting from [facility] with pneumonia, acute on chronic respiratory failure secondary to pneumonia and COPD exacerbation. 1. Acute on chronic respiratory failure with hypoxia and hypercarbia due to COPD exacerbation + HCAP + possible Lung mass s/p bronch and Bx titrate o2 to keep saturations 90; Keep O2 around 90 2. HCAP Vancomycin allergy. Dc'd Cefipime and on Augmentin and Doyx 3. COPD exacerbation updrats (Xopenex in place of albuterol due to tachycardia) and solumedrol, change to PO prednisone and nava over 2 weeks Hypercarbia, clinically better today, monitor 4. A. Flutter with RVR, previously not on rate control medication. On Xarelto for anticoagulation, continue Cardizem to 180 for better rate control -SVTs-normal mag, cardiology following, avoid BB due to advanced COPD, keep mag and potassium normal 5. Lung Mass--Bronchosocopy done on 09/17, atypical cells, no malignancy but cancer not exlcuded , I don't pulmonary is planning further work up 6.Anemia--H/H was low on admission and stable, no signs of bleeding, check H/H today 7. Schizophrenia continue baseline meds Psych eval for compentency as I do not believe she's competent to make complex decision regarding complex medical issues. PT eval Full Code DVT pptx, Xarelto
[2020-09-22 12:11] LABS: Hematocrit 29.5 % (42-52); Hemoglobin 8.6 g/dl (14.0-18.0); Mean Corpuscular HGB Conc 29.2 g/dl (31.0-36.0); Mean Corpuscular Hemoglobin 22.5 pg (27.0-33.0); Mean Corpuscular Volume 77.2 fL (80-98); Platelet Count 324 X10*3/uL (160-400); Red Blood Count 3.82 X10*6/uL (4.60-5.80); Red Cell Distribution Width 15.7 % (11.0-16.0); White Blood Count 17.7 X10*3/uL (4.8-10.8)
[2020-09-22 13:49] LABS: Anion Gap 18 (12-20); Blood Urea Nitrogen 21 mg/dL (9-16); Calcium 8.5 mg/dL (8.4-10.2); Carbon Dioxide 38 mmol/L (22-29); Chloride 86 mmol/L (96-108); Creatinine Clr Calc Pharmacy 96.8; Estimated Glomerular Filt Rate > 60; Glucose Random 171 mg/dL (60-115); Potassium 4.1 mmol/L (3.3-5.1); Sodium 138 mmol/L (135-145)
[2020-09-22] MEDS: QUEtiapine Fumarate 25 MG TABLET PO (20:31)
[2020-09-22] MEDS: risperiDONE 1 MG TABLET PO (20:31)
[2020-09-23] VITALS (9 sets, daily range): BP systolic 98–135; BP diastolic 50–68; PULSE 74–95; RESP 18–20; TEMP 36.2–37.1; O2SAT 91–98
[2020-09-23] MEDS: 0.9 % Sodium Chloride Flush 3 ML SYRINGE IVFLUSH ×3 (08:41→15:26)
[2020-09-23] MEDS: Ferrous Sulfate 324 MG TABLET.DR PO (08:41)
[2020-09-23] MEDS: dilTIAZem HCL CD 120 MG CAP.ER.DEG PO (08:45)
--- NOTE | 2020-09-23 09:38 | P.PNPL_ITS ---
Subjective Subjective Date of Service: 09/23/20 Principal diagnosis: PNEUMONIA, COPD excerbation Interval history: The patient seen on exam. Seems to be still feeling about the same, lousy. Oxygenation has improved. Heart rate appears to be improved as well. I do believe the patient will benefit from returning back to his place of residence in undergoing a PET scan. If he is not able to go home with still holding his anticoagulation to have a repeat diagnostic intervention in order to her address the left upper lobe lung mass. Mentation appears to wax and wane. Objective Data Labs CBC & Chem 7: 09/22/20 11:14 09/22/20 13:11 Labs: Laboratory Results - last 24 hr 09/22/20 09/22/20 09/22/20 11:14 11:14 13:11 WBC 17.7 H RBC 3.82 L Hgb 8.6 L Hct 29.5 L MCV 77.2 L MCH 22.5 L MCHC 29.2 L RDW 15.7 Plt Count 324 MPV 10.0 Absolute Nucleated RBC 0.000 Nucleated RBC % (auto) 0.0 Sodium Cancelled 138 Potassium Cancelled 4.1 Chloride Cancelled 86 L Carbon Dioxide Cancelled 38 H Anion Gap Cancelled 18 BUN Cancelled 21 H Creatinine Cancelled 0.67 Estim Creat Clear Calc Cancelled 96.8 Estimated GFR Cancelled > 60 Random Glucose Cancelled 171 H D Calcium Cancelled 8.5 Magnesium Cancelled 2.0 Microbiology Microbiology Results: Microbiology 09/17/20 13:45 Brushing - [place] Rll Fungal Identification - Preliminary No growth to date. 09/17/20 13:44 Bronchial Washings Fungal Identification - Preliminary No growth to date. 09/17/20 13:45 Bronch Rll Bronchial [place] Culture - Final No growth. 09/17/20 13:45 Bronch Rll Gram Stain - Final 09/17/20 13:44 Bronchial Washings Gram Stain - Final 09/17/20 13:44 Bronchial Washings Routine Culture - Final No growth after 2 days 09/12/20 10:19 Blood - Venous Blood Culture - Final No growth after 5 days. 09/12/20 10:02 Blood - Venous Blood Culture - Final No growth after 5 days. Review of Systems Review of Systems Yes Unobtainable due to mental condition Physical Exam Vital Signs: Vital Signs: Last Vital Signs Temp 97.6 F 09/23/20 08:00 Pulse 86 09/23/20 08:45 Resp 19 09/23/20 08:00 BP 106/52 L 09/23/20 08:45 Pulse Ox 94 09/23/20 03:41 Body Mass Index 23.6 Const: General: alert HENMT: General nose exam: Abnormal external nose present and Nasal discharge present Neck: Neck: Yes normal visual inspection, Yes full ROM and Yes no lympha denopathy Chest: Chest palpation & inspection: normal inspection of the chest Resp: Auscultation: diminished lung sounds Cardio: Rate: regular rate Rhythm: regular rhythm Heart sounds: S1 normal heart sound present and S2 normal heart sound present GI: Palpation (GI): Soft to palpation and nontender Auscultation: normal bowel sounds Assessment and Plan Assessment and plan (1) Respiratory failure with hypoxia and hypercapnia: Status: Acute (2) Mass of upper lobe of left lung: Status: Acute (3) Acute exacerbation of chronic obstructive pulmonary disease (COPD): Status: Acute Assessment and Plan: Continue respiratory therapy Nasal cannula 2-4 L to maintain a pulse ox above 88% If able to be discharged back to his home should have an outpatient PET scan. I f he is not able to go home then will consider a repeat diagnostic intervention either CT-guided biopsy repeat bronchoscopy with biopsies. My recommendation is for the patient to undergo a PET scan to get a better appreciation of the extent of this likely lung cancer. Time Spent With Patient Time: Total time spent is greater than 50% in coordination of care (as documented) at patient's floor/unit and/or counseling patient: Time with patient: 15 - 24 minutes
--- NOTE | 2020-09-23 10:24 | P.PNIM_ITS ---
Subjective Subjective Date of Service: 09/23/20 Interval History: Seen in f/u for PNA, doing well, no specific complaint hypoxia continue to improve, s/p bronch on 09/17. He is resistant to care today, refusing to take meds and took off O2 for sometime. Review of Systems Gen: no fever Resp: + sob, + cough CV: no chest, no LUONG, no leg edema GI: No n/v, no abd pain Neuro: confusion Physical Exam Vital Signs: Vital Signs: Last Vital Signs Temp 97.6 F 09/23/20 08:00 Pulse 86 09/23/20 08:45 Resp 19 09/23/20 08:00 BP 106/52 L 09/23/20 08:45 Pulse Ox 94 09/23/20 03:41 Body Mass Index 23.6 Const: Other: rhonchi belen General: cooperative Orientation/consciousness: oriented to person and oriented to place Resp: Effort & Inspection: normal respiratory effort Auscultation: clear to auscultation bilaterally Cardio: Other: rhonchi belen Jugular venous distension: no JVD Rhythm: other (irregular) Heart sounds: S1 normal heart sound present and S2 normal heart sound present GI: Inspection: Yes normal to inspection Palpation (GI): Soft to palpation and nontender Skin: General skin exam: no rashes or lesions noted Neuro: General: oriented to person and oriented to place Psych: Affect: Labile affect present Objective Data Current Medications Generic Name Dose Route Start Last Admin Trade Name Freq PRN Reason Stop Dose Admin Acetaminophen 650 mg 09/12/20 17:26 Acetaminophen 325 Mg Tablet PO Q6H PRN Pain, Mild (Pain Scale 1-3) Acetaminophen 650 mg 09/12/20 17:26 09/18/20 20:34 Acetaminophen 325 Mg Tablet PO 650 mg BID PRN Administration Pain Albuterol/Ipratropium 3 ml 09/17/20 01:37 09/20/20 05:06 Albuterol/Iprat 2.5/0.5mg 3 Ml Ampul.Neb INHALE 3 ml RQ6H PRN Administration Shortness of Breath/Wheezing Amoxicillin/Clavulanate Potassium 500 mg 09/19/20 11:15 09/22/20 23:48 Amoxicillin/Potassium Clav 500 Mg Tablet PO 500 mg Q12H JOSEP Administration Bisacodyl 10 mg 09/12/20 17:26 Bisacodyl 10 Mg Supp.Rect [place] DAILY PRN Constipation Digoxin 0.125 mg 09/23/20 09:00 09/23/20 10:10 Digoxin 0.125 Mg Tablet PO Not Given DAILY JOSEP Diltiazem HCl 120 mg 09/18/20 10:15 09/23/20 08:45 Diltiazem Hcl Cd 120 Mg Cap.Er.Deg PO 120 mg DAILY JOSEP Administration Protocol Doxycycline Hyclate 100 mg 09/22/20 11:00 09/22/20 23:49 Doxycycline Hyclate 100 Mg Tablet PO 100 mg Q12H JOSEP Administration Duloxetine HCl 30 mg 09/13/20 09:00 09/23/20 10:11 Duloxetine Hcl 30 Mg Capsule. PO Not Given DAILY JOSEP Ferrous Sulfate 324 mg 09/13/20 09:00 09/23/20 08:41 Ferrous Sulfate 324 Mg Tablet. PO 324 mg DAILY JOSEP Administration Ondansetron HCl 4 mg 09/12/20 17:26 Ondansetron Hcl 4 Mg/2 Ml Vial IVPUSH Q8H PRN Nausea and Vomiting Prednisone 40 mg 09/19/20 11:10 09/23/20 10:11 Prednisone 20 Mg Tablet PO Not Given DAILY JOSEP Quetiapine Fumarate 25 mg 09/12/20 21:00 09/22/20 20:31 Quetiapine Fumarate 25 Mg Tablet PO 25 mg BEDTIME JOSEP Administration Risperidone 1 mg 09/12/20 21:00 09/22/20 20:31 Risperidone 1 Mg Tablet PO 1 mg BEDTIME JOSEP Administration Senna 8.6 mg 09/13/20 09:00 09/23/20 10:12 Sennosides 8.6 Mg Tablet PO Not Given DAILY JOSEP Sodium Chloride 3 ml 09/13/20 00:00 09/23/20 08:41 0.9 % Sodium Chloride Flush 3 Ml Syringe IVFLUSH 3 ml QSHIFT JOSEP Administration Sodium Chloride 3 ml 09/13/20 02:28 09/23/20 08:42 0.9 % Sodium Chloride Flush 3 Ml Syringe IVFLUSH 3 ml QSHIFT JOSEP Administration Torsemide 20 mg 09/13/20 09:00 09/23/20 10:12 Torsemide 20 Mg Tablet PO Not Given DAILY [facility] Protocol Labs CBC & Chem 7: 09/22/20 11:14 09/22/20 13:11 Microbiology Microbiology Results: Microbiology 09/17/20 13:45 Brushing - [place] Rll Fungal Identification - Preliminary No growth to date. 09/17/20 13:44 Bronchial Washings Fungal Identification - Preliminary No growth to date. 09/17/20 13:45 Bronch Rll Bronchial [place] Culture - Final No growth. 09/17/20 13:45 Bronch Rll Gram Stain - Final 09/17/20 13:44 Bronchial Washings Gram Stain - Final 09/17/20 13:44 Bronchial Washings Routine Culture - Final No growth after 2 days 09/12/20 10:19 Blood - Venous Blood Culture - Final No growth after 5 days. 09/12/20 10:02 Blood - Venous Blood Culture - Final No growth after 5 days. Assessment and Plan (1) Hypoxia: Status: Acute (2) Acute exacerbation of chronic obstructive pulmonary disease (COPD): Status: Acute (3) Hospital-acquired pneumonia: Status: Acute Assessment and Plan: A 74-year-old man presenting from [facility] with pneumonia, acute on chronic respiratory failure secondary to pneumonia and COPD exacerbation. 1. Acute on chronic respiratory failure with hypoxia and hypercarbia due to COPD exacerbation + HCAP + possible Lung mass s/p bronch and Bx titrate o2 to keep saturations 90; Keep O2 around 90 2. HCAP Was on IV Cefepime, now on Augmentin and Doyx 3. COPD exacerbation updrats (Xopenex in place of albuterol due to tachycardia) and solumedrol, change to PO prednisone and nava over 2 weeks Hypercarbia, clinically better today, monitor 4. A. Flutter with RVR, previously not on rate control medication. On Xarelto for anticoagulation, continue Cardizem -SVTs-normal mag, cardiology following, avoid BB due to advanced COPD, keep mag and potassium normal 5. Lung Mass--Bronchosocopy done on 09/17, atypical cells, no malignancy but cancer not exlcuded , I don't think pulmonary is planning further work up 6.Anemia--H/H was low on admission and stable, no signs of bleeding, check H/H today 7. Schizophrenia continue baseline meds Psych eval for compentency as I do not believe she's competent to make complex decision regarding complex medical issues. PT eval Full Code DVT pptx, Xarelto
[2020-09-23] MEDS: Amoxicillin/Potassium Clav 500 MG TABLET PO ×2 (12:20→23:26)
--- NOTE | 2020-09-23 17:12 | P.EN_ITS ---
Event Note Date of Service: 09/23/20 Event Note: Psychiatry note: Capacity evaluation requested for this 74 year old male currently medically admitted. Question as to whether patient had capacity to consent for further, more invasive work up of lung mass. Patient seen twice by this commercial insurance underwriter, first time (09/22) patient stated he wanted to sleep and didn't want to talk. Second time was earlier this morning, patient was awake watching TV upon arrival, though as soon as he saw this commercial insurance underwriter he closed his eyes. This commercial insurance underwriter explained reason for evaluation and asked patient why he was currently admitted to which he replied, I don't know , asked regarding plan of care he replied I don't know . Informed patient that his responses, or lack there of, were leading me to believe that he may not understand/comprehend his current medical issues and potential interventions, he replied whatever . Based on limited responses and responses that were I don't know , patient unable to demonstrate an appreciation or understanding of his current medical state nor is he able to show any understanding or appreciation for risks associated with more invasive work up.
--- NOTE | 2020-09-23 18:33 | PC.NURSE ---
Patient refused most of morning medication. Only took Cardizem and Iron. Attempted to rip IV out. Redirected successfully. Removed oxygen from nose and refused to allow us to put it back in. After multiple attempts, staff was able to direct him to allow oxygen to be put back in. Dr. Mcarthur made aware of patients resistive to care. No new orders.
[2020-09-23] MEDS: risperiDONE 1 MG TABLET PO (21:18)
[2020-09-23] MEDS: QUEtiapine Fumarate 25 MG TABLET PO (21:18)
[2020-09-24] VITALS (9 sets, daily range): BP systolic 98–136; BP diastolic 47–59; PULSE 60–94; RESP 16–20; TEMP 36.1–36.9; O2SAT 93–100
--- NOTE | 2020-09-24 00:19 | PC.NURSE ---
Pt pulled out IV, panel monitor, and [place] cath. Tried to put in another IV but was unable to. Dr Rosales notified and approved to leave IV access out for the night
[2020-09-24] MEDS: DULoxetine HCl 30 MG CAPSULE.DR PO (07:48)
[2020-09-24] MEDS: Ferrous Sulfate 324 MG TABLET.DR PO (07:48)
[2020-09-24] MEDS: Torsemide 20 MG TABLET PO (07:48)
[2020-09-24] MEDS: Digoxin 0.125 MG TABLET PO (07:48)
[2020-09-24] MEDS: dilTIAZem HCL CD 120 MG CAP.ER.DEG PO (07:49)
[2020-09-24] MEDS: predniSONE 20 MG TABLET 40 MG PO (07:49)
[2020-09-24] MEDS: Sennosides 8.6 MG TABLET PO (08:23)
--- NOTE | 2020-09-24 08:50 | MHC.CM.PN ---
dc plan is to return to [facility] when medically stable, where pt is a resident. cm to cont to follow
--- NOTE | 2020-09-24 09:09 | PM.PNPUL ---
Subjective Subjective Date of Service: 09/24/20 Principal diagnosis: PNEUMONIA, COPD excerbation Interval history: Patient is seen and examined. Oxygen requirements are going down. She is comfortable ways eating breakfast. At this point he is able to go back to his residence. Will plan to do an outpatient PET scan will follow up in our office. He is able to resume his anticoagulation. Objective Data Labs CBC & Chem 7: 09/22/20 11:14 09/22/20 13:11 Microbiology Microbiology Results: Microbiology 09/17/20 13:45 Brushing - [place] Rll Fungal Identification - Preliminary No growth to date. 09/17/20 13:44 Bronchial Washings Fungal Identification - Preliminary No growth to date. 09/17/20 13:45 Bronch Rll Bronchial [place] Culture - Final No growth. 09/17/20 13:45 Bronch Rll Gram Stain - Final 09/17/20 13:44 Bronchial Washings Gram Stain - Final 09/17/20 13:44 Bronchial Washings Routine Culture - Final No growth after 2 days 09/12/20 10:19 Blood - Venous Blood Culture - Final No growth after 5 days. 09/12/20 10:02 Blood - Venous Blood Culture - Final No growth after 5 days. Review of Systems Review of Systems Yes Unobtainable due to mental condition Physical Exam Vital Signs: Vital Signs: Last Vital Signs Temp 96.9 F 09/24/20 07:37 Pulse 80 09/24/20 07:48 Resp 20 09/24/20 07:37 BP 107/47 L 09/24/20 07:37 Pulse Ox 94 09/24/20 07:37 Body Mass Index 23.6 Const: General: alert Neck: Neck: Yes normal visual inspection, Yes full ROM and Yes no lymphadenopathy Chest: Chest palpation & inspection: normal inspection of the chest Resp: Auscultation: diminished lung sounds Cardio: Rate: regular rate Rhythm: regular rhythm Heart sounds: S1 normal heart sound present and S2 normal heart sound present GI: Palpation (GI): Soft to palpation and nontender Auscultation: normal bowel sounds Assessment and Plan Assessment and plan (1) Respiratory failure with hypoxia and hypercapnia: Status: Acute (2) Mass of upper lobe of left lung: Status: Acute (3) Acute exacerbation of chronic obstructive pulmonary disease (COPD): Status: Acute (4) Hospital-acquired pneumonia: Status: Acute Assessment and Plan: Continue nasal cannula to maintain a pulse ox above 88%. Will make arrangements to follow up with Pulmonary as an outpatient. Patient should undergo an outpatient PET scan to address the left upper lobe lung mass. Okay to start anticoagulation since no further and patient interventions are planned at this time. Time Spent With Patient Time: Total time spent is greater than 50% in coordination of care (as documented) at patient's floor/unit and/or counseling patient: Time with patient: 15 - 24 minutes
--- NOTE | 2020-09-24 09:43 | P.PNIM_ITS ---
Subjective Subjective Date of Service: 09/24/20 Interval History: Seen in f/u for PNA, doing well, no specific complaint hypoxia continue to improve, s/p bronch on 09/17. He is better today, oxygen level is better on less oxygen Review of Systems Gen: no fever Resp: + sob, + cough CV: no chest, no LUONG, no leg edema GI: No n/v, no abd pain Neuro: confusion Physical Exam Vital Signs: Vital Signs: Last Vital Signs Temp 96.9 F 09/24/20 07:37 Pulse 80 09/24/20 07:48 Resp 20 09/24/20 07:37 BP 107/47 L 09/24/20 07:37 Pulse Ox 94 09/24/20 07:37 Body Mass Index 23.6 Const: Other: rhonchi belen General: cooperative Orientation/consciousness: oriented to person, oriented to place and oriented to time Resp: Effort & Inspection: normal respiratory effort Auscultation: clear to auscultation bilaterally Cardio: Other: rhonchi belen Jugular venous distension: no JVD Rhythm: other (irregular) Heart sounds: S1 normal heart sound present and S2 normal heart sound present GI: Inspection: Yes normal to inspection Palpation (GI): Soft to palpation and nontender Skin: General skin exam: no rashes or lesions noted Neuro: General: oriented to person, oriented to place and oriented to time Psych: Affect: Labile affect present Objective Data Current Medications Generic Name Dose Route Start Last Admin Trade Name Freq PRN Reason Stop Dose Admin Acetaminophen 650 mg 09/12/20 17:26 Acetaminophen 325 Mg Tablet PO Q6H PRN Pain, Mild (Pain Scale 1-3) Acetaminophen 650 mg 09/12/20 17:26 09/18/20 20:34 Acetaminophen 325 Mg Tablet PO 650 mg BID PRN Administration Pain Amoxicillin/Clavulanate Potassium 500 mg 09/19/20 11:15 09/23/20 23:26 Amoxicillin/Potassium Clav 500 Mg Tablet PO 500 mg Q12H JOSEP Administration Bisacodyl 10 mg 09/12/20 17:26 Bisacodyl 10 Mg Supp.Rect [place] DAILY PRN Constipation Digoxin 0.125 mg 09/23/20 09:00 09/24/20 07:48 Digoxin 0.125 Mg Tablet PO 0.125 mg DAILY JOSEP Administration Diltiazem HCl 120 mg 09/18/20 10:15 09/24/20 07:49 Diltiazem Hcl Cd 120 Mg Cap.Er.Deg PO 120 mg DAILY JOSEP Administration Protocol Doxycycline Hyclate 100 mg 09/22/20 11:00 09/23/20 23:26 Doxycycline Hyclate 100 Mg Tablet PO 100 mg Q12H JOSEP Administration Duloxetine HCl 30 mg 09/13/20 09:00 09/24/20 07:48 Duloxetine Hcl 30 Mg Capsule. PO 30 mg DAILY JOSEP Administration Ferrous Sulfate 324 mg 09/13/20 09:00 09/24/20 07:48 Ferrous Sulfate 324 Mg Tablet. PO 324 mg DAILY JOSEP Administration Ondansetron HCl 4 mg 09/12/20 17:26 Ondansetron Hcl 4 Mg/2 Ml Vial IVPUSH Q8H PRN Nausea and Vomiting Prednisone 40 mg 09/19/20 11:10 09/24/20 07:49 Prednisone 20 Mg Tablet PO 40 mg DAILY JOSEP Administration Quetiapine Fumarate 25 mg 09/12/20 21:00 09/23/20 21:18 Quetiapine Fumarate 25 Mg Tablet PO 25 mg BEDTIME JOSEP Administration Risperidone 1 mg 09/12/20 21:00 09/23/20 21:18 Risperidone 1 Mg Tablet PO 1 mg BEDTIME JOSEP Administration Senna 8.6 mg 09/13/20 09:00 09/24/20 08:23 Sennosides 8.6 Mg Tablet PO 8.6 mg DAILY JOSEP Administration Sodium Chloride 3 ml 09/13/20 00:00 09/24/20 07:48 0.9 % Sodium Chloride Flush 3 Ml Syringe IVFLUSH Not Given QSHIFT JOSEP Sodium Chloride 3 ml 09/13/20 02:28 09/24/20 07:48 0.9 % Sodium Chloride Flush 3 Ml Syringe IVFLUSH Not Given QSHIFT JOSEP Torsemide 20 mg 09/13/20 09:00 09/24/20 07:48 Torsemide 20 Mg Tablet PO 20 mg DAILY JOSEP Administration Protocol Labs CBC & Chem 7: 09/22/20 11:14 09/22/20 13:11 Microbiology Microbiology Results: Microbiology 09/17/20 13:45 Brushing - [place] Rll Fungal Identification - Preliminary No growth to date. 09/17/20 13:44 Bronchial Washings Fungal Identification - Preliminary No growth to date. 09/17/20 13:45 Bronch Rll Bronchial [place] Culture - Final No growth. 09/17/20 13:45 Bronch Rll Gram Stain - Final 09/17/20 13:44 Bronchial Washings Gram Stain - Final 09/17/20 13:44 Bronchial Washings Routine Culture - Final No growth after 2 days 09/12/20 10:19 Blood - Venous Blood Culture - Final No growth after 5 days. 09/12/20 10:02 Blood - Venous Blood Culture - Final No growth after 5 days. Assessment and Plan (1) Hypoxia: Status: Acute (2) Acute exacerbation of chronic obstructive pulmonary disease (COPD): Status: Acute (3) Hospital-acquired pneumonia: Status: Acute Assessment and Plan: 74-year-old man presenting from [facility] with pneumonia, acute on chronic respiratory failure secondary to pneumonia and COPD exacerbation. 1. Acute on chronic respiratory failure with hypoxia and hypercarbia due to COPD exacerbation + HCAP + possible Lung mass s/p bronch and Bx titrate o2 to keep saturations 90; 2. HCAP Was on IV Cefepime, now on Augmentin and Doyx 3. COPD exacerbation--improving updrats (Xopenex in place of albuterol due to tachycardia).\ -Was on Solumedrol, now changed too PO prednisone (Pulmonary recommend 2 weeks nava) Hypercarbia, clinically better today, monitor 4. A. Flutter with RVR, previously not on rate control medication but was on Xarelto -continue Xarelto -Added Cardizem for RVR, -SVTs-normal mag, cardiology following, avoid BB due to advanced COPD, keep mag and potassium normal 5. Lung Mass--Bronchosocopy on 09/17, atypical cells, no malignancy but cancer not exlcuded , I don't think pulmonary is planning further work up 6.Anemia--H/H was low on admission and stable, no signs of bleeding, check H/H today 7. Schizophrenia continue baseline meds PT eval and ultimately to return to [facility]ARE 1 Full Code DVT pptx, Xarelto
[2020-09-24] MEDS: Amoxicillin/Potassium Clav 500 MG TABLET PO (11:47)
[2020-09-25] MEDS: Amoxicillin/Potassium Clav 500 MG TABLET PO ×2 (00:13→11:44)
[2020-09-25 03:41] VITALS: BP 127/62; PULSE 83; RESP 16; TEMP 36.9; O2SAT 96
[2020-09-25 07:44] VITALS: BP 124/70; PULSE 103; RESP 20; TEMP 36.5; O2SAT 92
[2020-09-25] MEDS: predniSONE 20 MG TABLET 40 MG PO (08:02)
[2020-09-25] MEDS: dilTIAZem HCL CD 120 MG CAP.ER.DEG PO (08:02)
[2020-09-25] MEDS: Sennosides 8.6 MG TABLET PO (08:02)
[2020-09-25] MEDS: Digoxin 0.125 MG TABLET PO (08:02)
[2020-09-25] MEDS: DULoxetine HCl 30 MG CAPSULE.DR PO (08:02)
[2020-09-25] MEDS: Torsemide 20 MG TABLET PO (08:02)
[2020-09-25] MEDS: Ferrous Sulfate 324 MG TABLET.DR PO (08:02)
--- NOTE | 2020-09-25 09:34 | MHC.CM.PN ---
CALL TO [facility] ([phone]) RESDULTS IN NO ANSWER DESPITE MULTIPLE ATTEMPTS. THIS VISUAL SUPERVISOR TRYING TO SECURE PATIENT RETURN TO FACILITY BY Sunday09/27/20. CASE MANAGEMENT TO CONTINUE ATTEMPTS
--- NOTE | 2020-09-25 10:11 | MHC.CM.PN ---
CASE MANAGMEAARTI SPOKE WITH RN, ALLIE ([phone]) ALLIE REPORTS THAT FACILITY IS UNABLE TO ACCOMMODATE PATIENT ON THE AMOUNT OF O2 THAT WAS REPROTED AT TIME OF PREVIOUS CONVERSATION. PATIENT HAD BEEN ON 2 LITRES O2 FOR THE PAST MONTH, BUT [facility] IS UNSURE HOW MUCH THEIR FACILITY CAN ACCOMMODATE. SHE ASKS THAT THIS NURSING ADMIN CALL BACK OON SUNDAY (09/26) AND SPEAK WITH SECURITY TECH SHERYL. CASE MANAGEMENT TO FOLLOW UP
[2020-09-25 11:35] VITALS: BP 131/63; PULSE 80; RESP 20; TEMP 36.2; O2SAT 92
--- NOTE | 2020-09-25 12:28 | HO.PM.IMPN ---
Subjective Subjective Date of Service: 09/25/20 Interval History: the patient was seen and evaluated this morning Laying in bed, looks tired and not interested in discussion or exam Denies any fever, chills or shortness of breath no specific complaint hypoxia continue to improve, s/p bronch on 09/17 No reported other overnight events. Systemic review: No fever, chills or weakness No chest pain, palpitation No shortness of breath or coughing No abdominal pain, nausea or vomiting No urinary symptoms No any rash or wounds Physical Exam Vital Signs: Vital Signs: Last Vital Signs Temp 97.2 F 09/25/20 11:35 Pulse 80 09/25/20 11:35 Resp 20 09/25/20 11:35 BP 131/63 09/25/20 11:35 Pulse Ox 92 09/25/20 11:35 Body Mass Index 23.6 Const: Other: Constitutional : Alert, oriented to self and place, not in distress Neck : Normal inspection, Supple Cardiovascular : RRR, S1 S2, no lower extremity edema Respiratory : Good bilateral air entry, no crackles, wheezes or rhonchi, on 4-5L O2 Gastrointestinal: soft, lax, Normal bowel sounds, Non tender Skin : Warm/Dry, No rash Neurological : Alert & oriented x3, No focal deficit Objective Data Current Medications Generic Name Dose Route Start Last Admin Trade Name Freq PRN Reason Stop Dose Admin Acetaminophen 650 mg 09/12/20 17:26 Acetaminophen 325 Mg Tablet PO Q6H PRN Pain, Mild (Pain Scale 1-3) Acetaminophen 650 mg 09/12/20 17:26 09/18/20 20:34 Acetaminophen 325 Mg Tablet PO 650 mg BID PRN Administration Pain Amoxicillin/Clavulanate Potassium 500 mg 09/19/20 11:15 09/25/20 11:44 Amoxicillin/Potassium Clav 500 Mg Tablet PO 500 mg Q12H JOSEP Administration Bisacodyl 10 mg 09/12/20 17:26 Bisacodyl 10 Mg Supp.Rect OR DAILY PRN Constipation Digoxin 0.125 mg 09/23/20 09:00 09/25/20 08:02 Digoxin 0.125 Mg Tablet PO 0.125 mg DAILY JOSEP Administration Diltiazem HCl 120 mg 09/18/20 10:15 09/25/20 08:02 Diltiazem Hcl Cd 120 Mg Cap.Er.Deg PO 120 mg DAILY JOSEP Administration Protocol Doxycycline Hyclate 100 mg 09/22/20 11:00 09/25/20 11:44 Doxycycline Hyclate 100 Mg Tablet PO 100 mg Q12H JOSEP Administration Duloxetine HCl 30 mg 09/13/20 09:00 09/25/20 08:02 Duloxetine Hcl 30 Mg Capsule. PO 30 mg DAILY JOSEP Administration Ferrous Sulfate 324 mg 09/13/20 09:00 09/25/20 08:02 Ferrous Sulfate 324 Mg Tablet. PO 324 mg DAILY JOSEP Administration Ondansetron HCl 4 mg 09/12/20 17:26 Ondansetron Hcl 4 Mg/2 Ml Vial IVPUSH Q8H PRN Nausea and Vomiting Prednisone 40 mg 09/19/20 11:10 09/25/20 08:02 Prednisone 20 Mg Tablet PO 40 mg DAILY JOSEP Administration Quetiapine Fumarate 25 mg 09/12/20 21:00 09/24/20 21:26 Quetiapine Fumarate 25 Mg Tablet PO Not Given BEDTIME JOSEP Risperidone 1 mg 09/12/20 21:00 09/24/20 21:27 Risperidone 1 Mg Tablet PO Not Given BEDTIME JOSEP Senna 8.6 mg 09/13/20 09:00 09/25/20 08:02 Sennosides 8.6 Mg Tablet PO 8.6 mg DAILY JOSEP Administration Sodium Chloride 3 ml 09/13/20 00:00 09/25/20 08:02 0.9 % Sodium Chloride Flush 3 Ml Syringe IVFLUSH Not Given QSHIFT JOSEP Sodium Chloride 3 ml 09/13/20 02:28 09/25/20 08:03 0.9 % Sodium Chloride Flush 3 Ml Syringe IVFLUSH Not Given QSHIFT JOSEP Torsemide 20 mg 09/13/20 09:00 09/25/20 08:02 Torsemide 20 Mg Tablet PO 20 mg DAILY JOSEP Administration Protocol Labs CBC & Chem 7: 09/22/20 11:14 09/22/20 13:11 Microbiology Microbiology Results: Microbiology 09/17/20 13:45 Brushing - [place] Rll Direct Acid Fast Bacilli Smear - Final 09/17/20 13:44 Bronchial Washings Direct Acid Fast Bacilli Smear - Final 09/17/20 13:45 Brushing - [place] Rll Fungal Identification - Preliminary No growth to date. 09/17/20 13:44 Bronchial Washings Fungal Identification - Preliminary No growth to date. 09/17/20 13:45 Bronch Rll Bronchial [place] Culture - Final No growth. 09/17/20 13:45 Bronch Rll Gram Stain - Final 09/17/20 13:44 Bronchial Washings Gram Stain - Final 09/17/20 13:44 Bronchial Washings Routine Culture - Final No growth after 2 days 09/12/20 10:19 Blood - Venous Blood Culture - Final No growth after 5 days. 09/12/20 10:02 Blood - Venous Blood Culture - Final No growth after 5 days. Assessment and Plan (1) Hypoxia: Status: Acute (2) Acute exacerbation of chronic obstructive pulmonary disease (COPD): Status: Acute (3) Hospital-acquired pneumonia: Status: Acute Assessment and Plan: 74-year-old man presenting from [facility] with pneumonia, acute on chronic respiratory failure secondary to pneumonia and COPD exacerbation. Acute on chronic respiratory failure with hypoxia and hypercarbia due to COPD exacerbation + HCAP + possible Lung mass s/p bronch and Bx on active tx for PNA and COPD titrate o2 to keep saturations 90; HCAP continue Augmentin and Doyx COPD exacerbation--improving updrats (Xopenex in place of albuterol due to tachycardia) continue PO prednisone (Pulmonary recommend 2 weeks nava) Hypercarbia, clinically better today, monitor A. Flutter with RVR previously not on rate control medication but was on Xarelto continue Xarelto Added Cardizem for RVR with good response SVTs normal mag cardiology following avoid BB due to advanced COPD, keep mag and potassium normal Lung Mass Bronchosocopy on 09/17, atypical cells, no malignancy but cancer not exlcuded pulmonary follow up OP Anemia H/H was low on admission and stable, no signs of bleeding, check H/H today Schizophrenia continue baseline meds PT eval and ultimately to return to [facility] 1 DVT pptx Xarelto
[2020-09-25 15:17] VITALS: BP 107/63; PULSE 78; RESP 20; TEMP 36.6; O2SAT 95
[2020-09-25 19:24] VITALS: BP 115/62; PULSE 75; RESP 20; TEMP 37; O2SAT 98
[2020-09-25] MEDS: QUEtiapine Fumarate 25 MG TABLET PO (20:07)
[2020-09-25] MEDS: risperiDONE 1 MG TABLET PO (20:07)
[2020-09-25 23:35] VITALS: BP 140/64; PULSE 54; RESP 16; TEMP 36.3; O2SAT 100
[2020-09-26] VITALS (10 sets, daily range): BP systolic 94–112; BP diastolic 48–65; PULSE 63–83; RESP 16–22; TEMP 36.1–36.6; O2SAT 90–99
--- NOTE | 2020-09-26 00:18 | PC.NURSE ---
Pt refused 2300 dose of doxycycline and augmentin, multiple attempts made with no result. Pt difficult to wake up, held med due to potential choking.
[2020-09-26 08:32] LABS: Anion Gap 12 (12-20); Blood Urea Nitrogen 21 mg/dL (9-16); Calcium 8.6 mg/dL (8.4-10.2); Carbon Dioxide 43 mmol/L (22-29); Chloride 87 mmol/L (96-108); Creatinine Clr Calc Pharmacy 98.3; Estimated Glomerular Filt Rate > 60; Glucose Random 92 mg/dL (60-115); Potassium 3.5 mmol/L (3.3-5.1); Sodium 138 mmol/L (135-145)
[2020-09-26] MEDS: Digoxin 0.125 MG TABLET PO (09:52)
[2020-09-26] MEDS: Amoxicillin/Potassium Clav 500 MG TABLET PO (09:53)
[2020-09-26] MEDS: Ferrous Sulfate 324 MG TABLET.DR PO (09:53)
[2020-09-26] MEDS: predniSONE 20 MG TABLET 40 MG PO (09:53)
[2020-09-26] MEDS: Sennosides 8.6 MG TABLET PO (09:54)
[2020-09-26] MEDS: DULoxetine HCl 30 MG CAPSULE.DR PO (09:54)
[2020-09-26] MEDS: acetaZOLAMIDE 250 MG TABLET PO ×2 (09:54→20:55)
--- NOTE | 2020-09-26 10:16 | HO.PM.IMPN ---
Subjective Subjective Date of Service: 09/26/20 Interval History: the patient was seen and evaluated this morning Laying in bed, sleeping and not interested in discussion Denies any fever, chills or shortness of breath no specific complaint hypoxia continue to improve, s/p bronch on 09/17 No reported other overnight events. Systemic review: No fever, chills or weakness No chest pain, palpitation No shortness of breath or coughing No abdominal pain, nausea or vomiting No urinary symptoms No any rash or wounds Physical Exam Vital Signs: Vital Signs: Last Vital Signs Temp 97.8 F 09/26/20 07:13 Pulse 68 09/26/20 09:52 Resp 19 09/26/20 07:13 BP 96/52 L 09/26/20 09:43 Pulse Ox 92 09/26/20 07:13 Body Mass Index 23.6 Const: Other: Constitutional : Alert, oriented to self , not in distress Neck : Normal inspection, Supple Cardiovascular : RRR, S1 S2, no lower extremity edema Respiratory : Good bilateral air entry, no crackles, wheezes or rhonchi, on 4-5L O2 Gastrointestinal: soft, lax, Normal bowel sounds, Non tender Skin : Warm/Dry, No rash Neurological : Alert & oriented to self, No focal deficit General: cooperative Orientation/consciousness: oriented to person, oriented to place and oriented to time Neuro: General: oriented to person, oriented to place and oriented to time Objective Data Current Medications Generic Name Dose Route Start Last Admin Trade Name Freq PRN Reason Stop Dose Admin Acetaminophen 650 mg 09/12/20 17:26 Acetaminophen 325 Mg Tablet PO Q6H PRN Pain, Mild (Pain Scale 1-3) Acetaminophen 650 mg 09/12/20 17:26 09/18/20 20:34 Acetaminophen 325 Mg Tablet PO 650 mg BID PRN Administration Pain Acetazolamide 250 mg 09/26/20 09:06 09/26/20 09:54 Acetazolamide 250 Mg Tablet PO 09/26/20 21:01 250 mg BID JOSEP Administration Amoxicillin/Clavulanate Potassium 500 mg 09/19/20 11:15 09/26/20 09:53 Amoxicillin/Potassium Clav 500 Mg Tablet PO 500 mg Q12H JOSEP Administration Bisacodyl 10 mg 09/12/20 17:26 Bisacodyl 10 Mg Supp.Rect [place] DAILY PRN Constipation Digoxin 0.125 mg 09/23/20 09:00 09/26/20 09:52 Digoxin 0.125 Mg Tablet PO 0.125 mg DAILY JOSEP Administration Diltiazem HCl 120 mg 09/18/20 10:15 09/25/20 08:02 Diltiazem Hcl Cd 120 Mg Cap.Er.Deg PO 120 mg DAILY JOSEP Administration Protocol Doxycycline Hyclate 100 mg 09/22/20 11:00 09/26/20 09:53 Doxycycline Hyclate 100 Mg Tablet PO 100 mg Q12H JOSEP Administration Duloxetine HCl 30 mg 09/13/20 09:00 09/26/20 09:54 Duloxetine Hcl 30 Mg Capsule. PO 30 mg DAILY JOSEP Administration Ferrous Sulfate 324 mg 09/13/20 09:00 09/26/20 09:53 Ferrous Sulfate 324 Mg Tablet. PO 324 mg DAILY JOSEP Administration Ondansetron HCl 4 mg 09/12/20 17:26 Ondansetron Hcl 4 Mg/2 Ml Vial IVPUSH Q8H PRN Nausea and Vomiting Prednisone 40 mg 09/19/20 11:10 09/26/20 09:53 Prednisone 20 Mg Tablet PO 40 mg DAILY JOSEP Administration Quetiapine Fumarate 25 mg 09/12/20 21:00 09/25/20 20:07 Quetiapine Fumarate 25 Mg Tablet PO 25 mg BEDTIME JOSEP Administration Risperidone 1 mg 09/12/20 21:00 09/25/20 20:07 Risperidone 1 Mg Tablet PO 1 mg BEDTIME JOSEP Administration Senna 8.6 mg 09/13/20 09:00 09/26/20 09:54 Sennosides 8.6 Mg Tablet PO 8.6 mg DAILY [facility] Administration Sodium Chloride 3 ml 09/13/20 00:00 09/26/20 09:52 0.9 % Sodium Chloride Flush 3 Ml Syringe IVFLUSH Not Given QSHIFT [facility] Sodium Chloride 3 ml 09/13/20 02:28 09/26/20 09:52 0.9 % Sodium Chloride Flush 3 Ml [facility] & Chem 7: 09/22/20 11:14 09/26/20 07:22 Microbiology Microbiology Results: Microbiology 09/17/20 13:45 Brushing - [place] Rll Direct Acid Fast Bacilli Smear - Final 09/17/20 13:44 Bronchial Washings Direct Acid Fast Bacilli Smear - Final 09/17/20 13:45 Brushing - [place] Rll Fungal Identification - Preliminary No growth to date. 09/17/20 13:44 Bronchial Washings Fungal Identification - Preliminary No growth to date. 09/17/20 13:45 Bronch Rll Bronchial [place] Culture - Final No growth. 09/17/20 13:45 Bronch Rll Gram Stain - Final 09/17/20 13:44 Bronchial Washings Gram Stain - Final 09/17/20 13:44 Bronchial Washings Routine Culture - Final No growth after 2 days 09/12/20 10:19 Blood - Venous Blood Culture - Final No growth after 5 days. 09/12/20 10:02 Blood - Venous Blood Culture - Final No growth after 5 days. Assessment and Plan (1) Hypoxia: Status: Acute (2) Acute exacerbation of chronic obstructive pulmonary disease (COPD): Status: Acute (3) Hospital-acquired pneumonia: Status: Acute Assessment and Plan: 74-year-old man presenting from [facility] with pneumonia, acute on chronic respiratory failure secondary to pneumonia and COPD exacerbation. Hypotension BP readings in 90s/60s this morning Hold Cardizem Monitor BP Traction alkalosis CO2 of 43 Hold Toresmide give Acetzolamide follow BMP Acute on chronic respiratory failure with hypoxia and hypercarbia due to COPD exacerbation + HCAP + possible Lung mass s/p bronch and Bx on active tx for PNA and COPD titrate o2 to keep saturations 90; HCAP continue Augmentin and Doyx COPD exacerbation--improving updrats (Xopenex in place of albuterol due to tachycardia) continue PO prednisone (Pulmonary recommend 2 weeks nava) Hypercarbia, clinically better today, monitor A. Flutter with RVR previously not on rate control medication but was on Xarelto continue Xarelto Added Cardizem for RVR with good response SVTs normal mag cardiology following avoid BB due to advanced COPD, keep mag and potassium normal Lung Mass Bronchosocopy on 09/17, atypical cells, no malignancy but cancer not exlcuded pulmonary follow up OP Anemia H/H was low on admission and stable, no signs of bleeding, check H/H today Schizophrenia continue baseline meds PT eval and ultimately to return to [facility] 1 DVT pptx Xarelto
--- NOTE | 2020-09-26 10:54 | PC.NURSE ---
Pt BP 96/52, Dr. Gil made aware, hold Cardizem for now and recheck BP at 1200
[2020-09-26] MEDS: dilTIAZem HCL CD 120 MG CAP.ER.DEG PO (12:10)
[2020-09-26] MEDS: risperiDONE 1 MG TABLET PO (20:55)
[2020-09-26] MEDS: QUEtiapine Fumarate 25 MG TABLET PO (20:55)
[2020-09-27 03:58] VITALS: BP 104/41; PULSE 50; RESP 20; TEMP 36.6; O2SAT 97
[2020-09-27 07:46] VITALS: BP 110/46; PULSE 72; RESP 18; TEMP 36.2; O2SAT 97
[2020-09-27] MEDS: DULoxetine HCl 30 MG CAPSULE.DR PO (10:02)
[2020-09-27] MEDS: dilTIAZem HCL CD 120 MG CAP.ER.DEG PO (10:02)
[2020-09-27] MEDS: Ferrous Sulfate 324 MG TABLET.DR PO (10:02)
[2020-09-27] MEDS: Acetaminophen 325 MG TABLET 650 MG PO (10:02)
[2020-09-27] MEDS: Digoxin 0.125 MG TABLET PO (10:03)
[2020-09-27] MEDS: Sennosides 8.6 MG TABLET PO (10:03)
[2020-09-27] MEDS: predniSONE 10 MG TABLET 30 MG PO (10:03)
--- NOTE | 2020-09-27 10:14 | PM.DS ---
DS: Providers Provider Date of Service: 09/27/20 Date of admission: 09/12/20 17:26 Primary care physician: Yordy Ramirez DO Consults: 09/13/20 08:20 Consult to Pulmonology Routine Consulting Provider: Deon Kay Reason for consultation: pneumonia + lung mass 09/19/20 01:20 Consult to Cardiology Routine Consulting Provider: Des Shea Reason for consultation: NSVT 09/22/20 10:21 Consult to Psychiatry Routine Consulting Provider: [facility] Reason for consultation: assess compentancy and decision making capacity DS: Diagnosis Discharge Diagnosis (1) Acute exacerbation of chronic obstructive pulmonary disease (COPD): Status: Acute (2) Hospital-acquired pneumonia: Status: Acute (3) Atrial fibrillation with rapid ventricular response: Status: Acute (4) Hypoxia: Status: Acute (5) NSVT (nonsustained ventricular tachycardia): Status: Acute (6) Persistent atrial fibrillation: Status: Acute (7) Respiratory failure with hypoxia and hypercapnia: Status: Acute (8) Mass of upper lobe of left lung: Status: Acute DS: Medications Discharge Medications Home Medications: Home Medications Medication Instructions Recorded Confirmed acetaminophen 325 mg capsule 650 mg PO BID PRN 08/16/20 09/12/20 albuterol sulfate 90 mcg/actuation 2 puff INHALATION Q6H PRN 08/16/20 09/12/20 aerosol inhaler bisacodyl 10 mg rectal suppository 10 mg NC DAILY PRN 08/16/20 09/12/20 budesonide-formoterol HFA 160 2 puff INHALATION BID 08/16/20 09/12/20 mcg-4.5 mcg/actuation aerosol inhaler duloxetine 30 mg capsule,delayed 30 mg PO DAILY 08/16/20 09/12/20 release ferrous sulfate 325 mg (65 mg 325 mg PO DAILY 08/16/20 09/12/20 iron) tablet prednisone 10 mg tablet 10 mg PO DAILY 08/16/20 09/12/20 quetiapine 25 mg tablet 25 mg PO BEDTIME 08/16/20 09/12/20 risperidone 1 mg tablet 1 mg PO BEDTIME 08/16/20 09/12/20 rivaroxaban 20 mg tablet 20 mg PO DAILY 08/16/20 09/12/20 sennosides 8.6 mg capsule 8.6 mg PO DAILY 08/16/20 09/12/20 tiotropium bromide 18 mcg capsule 1 cap INHALATION DAILY 08/16/20 09/12/20 with inhalation device torsemide 20 mg tablet 20 mg PO DAILY 08/16/20 09/12/20 Previous Rx's Medication Instructions Recorded digoxin 0.125 mg PO DAILY #30 tab 09/27/20 diltiazem HCl [Cardizem CD] 120 mg PO DAILY #30 cap 09/27/20 prednisone See Taper PO DAILY #15 tab 09/27/20 DS: Summary Hospital Course Hospital Course: Admission note HPI 74 year old man presenting from [facility] with hypoxia with oxygen saturation of 80%. Unfortunately patient was somnolent and not answer many questions. He does have a history schizophrenia. Chest CT obtained showed large mass in the periphery of the left upper lobe and patchy opacity. He also had some pleural effusions. Blood gas did show pCO2 80, pH 7.38, PO2 78. Seems compensated with bicarb of 47. He has a history of chronic respiratory failure and he is on 3 L of oxygen at the facility. His oxygen did improve after he was placed on Ventimask and non-rebreather. Hospital course Acute on chronic respiratory failure with hypoxia and hypercarbia at time of presentation due to COPD exacerbation + HCAP Treated with IV antibiotics of Augmentin and doxycycline for total of 2 weeks. Oxygen wean down during the hospital stay down to 3 L at time of discharge. Cultures remain negative. Received IV steroids which was changed to prednisone. Evaluated by pulmonology who recommended total of 2 weeks of tapering dose of steroids. Treated with bronchodilator nebulizers as well. Noticed to have A. Flutter with RVR, he was not previously on any rate control medications. Evaluated by Cardiology and Cardizem and digoxin were added to his medications with good response. He was noticed to have a lung mass which was evaluated by Dr. Kay from pulmonology with bronchoscopy on September 17. Pathology result showed atypical cells with no malignancy but cancer still not excluded. He will need to follow-up with Dr. Kay as outpatient. Time Spent with Patient Time attestation: Total time spent providing and/or coordinating discharge services: Discharge coordination time: Greater than 30 minutes Physical Exam Vital Signs: Vital Signs: Last Vital Signs Temp 97.2 F 09/27/20 07:46 Pulse 72 09/27/20 07:46 Resp 18 09/27/20 07:46 BP 110/46 L 09/27/20 07:46 Pulse Ox 97 09/27/20 07:46 Body Mass Index 23.6 Cardio: Other: Constitutional : Alert, oriented to self , not in distress Neck : Normal inspection, Supple Cardiovascular : RRR, S1 S2, no lower extremity edema Respiratory : Good bilateral air entry, no crackles, wheezes or rhonchi, on 4-5L O2 Gastrointestinal: soft, lax, Normal bowel sounds, Non tender Skin : Warm/Dry, No rash Neurological : Alert & oriented to self, No focal deficit DS: Data Data Completed and Pending Completed studies during hospitalization [Text1]: Pending at discharge 09/17/20 13:34 Surgical [PTH] Stat 09/17/20 14:45 Cytology [PTH] Stat Labs on day of discharge: Preliminary micro results at discharge 09/17/20 13:45 Fungal Identification - Preliminary Brushing - [place] Rll No growth to date. 09/17/20 13:44 Fungal Identification - Preliminary Bronchial Washings No growth to date. Discharge Plan Discharge Patient Disposition: er [facility] Referrals: Yordy Ramirez DO [Primary Care Provider] - Discharge Medications: New diltiazem HCl [Cardizem CD] 120 mg Capsule,Extended Release 24hr 120 mg PO DAILY Qty: 30 RF: 0 digoxin 125 mcg (0.125 mg) Tablet 0.125 mg PO DAILY Qty: 30 RF: 0 prednisone 10 mg tablet See Taper mg PO DAILY Qty: 15 RF: 0 Continued acetaminophen 325 mg capsule 650 mg PO BID PRN (Reason: Pain) RF: 0 bisacodyl 10 mg suppository 10 mg NC DAILY PRN (Reason: Constipation) RF: 0 duloxetine 30 mg capsule,delayed release(DR/EC) 30 mg PO DAILY RF: 0 ferrous sulfate 325 mg (65 mg iron) tablet 325 mg PO DAILY RF: 0 albuterol sulfate [ProAir HFA] 90 mcg/actuation HFA aerosol inhaler 2 puff inhalation Q6H PRN (Reason: Shortness Of Breath) RF: 0 quetiapine 25 mg tablet 25 mg PO BEDTIME RF: 0 risperidone [Risperdal] 1 mg tablet 1 mg PO BEDTIME RF: 0 senna 8.6 mg capsule 8.6 mg PO DAILY RF: 0 Spiriva with HandiHaler 18 mcg capsule, w/inhalation device 1 cap inhalation DAILY RF: 0 budesonide-formoterol [Symbicort] 160-4.5 mcg/actuation HFA aerosol inhaler 2 puff inhalation BID RF: 0 torsemide 20 mg tablet 20 mg PO DAILY RF: 0 Xarelto 20 mg tablet 20 mg PO DAILY RF: 0 Held prednisone 10 mg tablet 10 mg PO DAILY RF: 0 Hold Instructions: Resume on 10/04/20. Discharge Orders: Discharge Order (Routine); Ordered 09/27/20 Ordered By: Grayson Gil Diet: advance to usual diet Activity on Discharge: As tolerated Stand Alone Forms: Patient Portal Discharge page Care Plan Goals: Read below Health Concerns: Read below Plan of Treatment: You were admitted to the hospital for evaluation of difficulty breathing and shortness of breath. Images were consistent with pneumonia and COPD exacerbation which was treated with IV antibiotics, steroids and nebulizers with good response over the course of hospital stay. You finished total of 2 weeks of antibiotics. No fever reported over the last 72 hours. You were weaned down the oxygen to 3 L. You were evaluated for rapid irregular heart rhythm called atrial fibrillation. Controlled with digoxin and Cardizem. Continue digoxin and Cardizem as prescribed Wean down oxygen as tolerated
[2020-09-27 11:34] VITALS: BP 103/38; PULSE 71; RESP 18; TEMP 36.6; O2SAT 98
[2020-09-27 11:39] VITALS: BP 106/42; PULSE 79
== END 2020-09-27 14:04 | DRG 140 ==
LOC: HO.ED 12:23 → HO.EDOVER 17:37 → HO.S3 09-13 16:40
PROVIDERS: Hospitalist; Internal Medicine; Nurse Practitioner Acute Care; Admitting Provider Family Medicine; Emergency Provider Emergency Medicine; PCP Hospitalist; Visit Provider Student in an Organized Health Care Education/Training Program
PROC: 0BJ08ZZ Inspection of Tracheobronchial Tree, Via Natural or Artificial Opening Endoscopic (ICD-10-PCS; CPT 31622; principal; 2020-09-17 13:30)
DX: J44.0 Chronic obstructive pulmonary disease with (acute) lower respiratory infection (principal); J96.21 Acute and chronic respiratory failure with hypoxia; J18.9 Pneumonia, unspecified organism; D64.9 Anemia, unspecified; R91.8 Other nonspecific abnormal finding of lung field; J44.1 Chronic obstructive pulmonary disease with (acute) exacerbation; I48.19 Other persistent atrial fibrillation; I47.1 Supraventricular tachycardia; J96.22 Acute and chronic respiratory failure with hypercapnia; F20.9 Schizophrenia, unspecified; Z99.81 Dependence on supplemental oxygen; Z20.822 Contact with and (suspected) exposure to COVID-19; Z79.52 Long term (current) use of systemic steroids; Z79.899 Other long term (current) drug therapy
CPT/HCPCS: 36415; 36600; 71045; 71046; 71250; 80048; 80076; 82803; 83605; 83690; 83735; 83880; 84484; 85025; 85027; 86850; 86900; 86901; 87040; 87071; 87102; 87116; 87205; 87635; 88112; 88305; 93005; 93306; 94640; 94660; 96365; 96366; 96367; 96375; 97162; 99285; J0171; J0456; J0692; J1940; J2270; J2543; J2920; J2930; J3010; J3475

== ENCOUNTER → 2020-09-12 17:26 | Outpatient (BNV) | payer MEDICAID, SELFPAY | PROVIDERS: Admitting Provider Family Medicine; Emergency Provider Emergency Medicine; PCP Hospitalist; Visit Provider Internal Medicine | DX: J96.91 Respiratory failure, unspecified with hypoxia (principal); J96.92 Respiratory failure, unspecified with hypercapnia; R91.8 Other nonspecific abnormal finding of lung field; R09.02 Hypoxemia; J44.1 Chronic obstructive pulmonary disease with (acute) exacerbation; J18.9 Pneumonia, unspecified organism; Y95 Nosocomial condition ==